=== PATIENT | female | born 1965 | race African-American/Black ===

== ENCOUNTER → 2020-07-08 07:45 | Outpatient (BNVA) | payer OTHER, SELFPAY | PROVIDERS: PCP Internal Medicine; Visit Provider Internal Medicine Gastroenterology ==

== ENCOUNTER 2020-08-04 07:02 | Day surgery (SDC) | payer OTHER, SELFPAY ==
[2020-07-30 13:30] VITALS: BMI 28.3
[2020-08-04 07:33] VITALS: BP 132/82; PULSE 76; RESP 16; TEMP 36.2; O2SAT 99
--- NOTE | 2020-08-04 08:27 | HO.ANESPROP2 ---
FORM[facility]LY [facility] Active Problems Active Problems: All Active Problems (Updated 08/04/20 @ 07:46 by Rhina Trinidad) Lower back pain (Acute) Vertigo (Acute) Tubular adenoma of colon (Acute) Constipation by delayed colonic transit (Acute) GERD (gastroesophageal reflux disease) (Acute) Past Medical History Medical History Breast cyst Constipation by delayed colonic transit GERD (gastroesophageal reflux disease) Tubular adenoma of colon Family History Family History Sister High cholesterol Mother No problems noted. Father No problems noted. Surgical History Surgical History H/O colonoscopy History of ankle surgery History of cataract extraction Social History Social History Household Members: Friend(s) Alcohol intake: never Smoking Status: Never smoker Use of substances other than those prescribed or required for medical reasons: No Advance Directives Information Provided: No Current occupational status: unemployed Meds Allergies Allergy/AdvReac Type Severity Reaction Status Date / Time diphenhydramine Allergy Intermediate LETHARGY Verified 08/04/20 07:47 [From BENADRYL] ibuprofen [IBUPROFEN] Allergy Intermediate CHEST Verified 08/04/20 07:47 PAIN, Acute stomach and itchy iopromide [From Ultravist] Allergy Mild THROAT Verified 08/04/20 07:47 TIGHTNESS FOOD COLORING Allergy Mild SORE Uncoded 07/08/20 07:45 THROAT/ITCHINESS Lactulose AdvReac Intermediate hives Uncoded 07/30/20 13:23 Active Medications: Current Medications Generic Name Dose Route Start Last Admin Trade Name Freq PRN Reason Stop Dose Admin Lactated Ringer's 1,000 mls @ 50 mls/hr 08/04/20 08:15 Lr IV .Q20H TIFFANIE Home Medications Medication Instructions Recorded Confirmed Last Taken Type ascorbic acid (vitamin C) 500 mg 500 mg PO DAILY 04/23/20 07/30/20 Unknown History capsule cholecalciferol (vitamin D3) 25 25 mcg PO DAILY 04/23/20 07/30/20 Unknown History mcg (1,000 unit) capsule nubiofdkjhqm-Rq-xflz-minerals 1 tab PO DAILY 04/23/20 07/30/20 Unknown History omega-3 fatty acids 1,000 mg 1,000 mg PO DAILY 04/23/20 07/30/20 Unknown History capsule vitamin E mixed 400 unit capsule 400 unit PO DAILY cap 04/23/20 07/30/20 Unknown History Exam Exam Date and Time: August 04, 2020 0827 Height,Weight and Vital Signs: Height 5 ft 5 in Weight 77.111 kg Last Vital Signs Temp 97.1 F 08/04/20 07:33 Pulse 76 08/04/20 07:33 Resp 16 08/04/20 07:33 BP 132/82 08/04/20 07:33 Pulse Ox 99 08/04/20 07:33 Airway Mallampati Class: II TM Dist: >3cm Denture: Upper Heart: RRR Lungs: CTA
--- NOTE | 2020-08-04 08:34 | PM.OP ---
Brief Operative Note Date of Service: 08/04/20 Pre-op diagnosis: Abdominal pain and bloating. Has been out of Omeprazole for 2 weeks. Constipation some improved with movement daily but ? incomplete Post-op diagnosis: other (SMALL HIATAL HERNIA--MILD INFLAMATION @ GE JUNCTION, DUODENITIS) Procedure: EGD WITH BX Implants: NONE Surgeon: Sarah Saenz MD Anesthesia: MAC (MD KRISHNA/MD DIANNE) Estimated blood loss (mL): 5 Pathology: other (DUODENAL, GASTRIC) Condition: stable Disposition: PACU
--- NOTE | 2020-08-04 08:35 | MHC.SHP ---
Pre-Procedural Eval Section A The patient is an INPATIENT: No Changes since office visit: Yes Patient answered all questions; No Cold of Flu in the past 2 weeks, No New Medical Problems and No Changes in Medication The History & Physical has been completed within 30 days and I have reviewed it.: Yes Section B Chief Complaint: GERD Allergies: Allergies Allergy/AdvReac Type Severity Reaction Status Date / Time diphenhydramine Allergy Intermediate LETHARGY Verified 08/04/20 07:47 [From BENADRYL] ibuprofen [IBUPROFEN] Allergy Intermediate CHEST Verified 08/04/20 07:47 PAIN, Acute stomach and itchy iopromide [From Ultravist] Allergy Mild THROAT Verified 08/04/20 07:47 TIGHTNESS FOOD COLORING Allergy Mild SORE Uncoded 07/08/20 07:45 THROAT/ITCHINESS Lactulose AdvReac Intermediate hives Uncoded 07/30/20 13:23 Plan I have reviewed the history and physical and performed a pertinent physical examination on my patient. No changes have occurred unless specified.
[2020-08-04 09:02] VITALS: BP 109/66; PULSE 93; RESP 16; TEMP 36.2; O2SAT 100
--- NOTE | 2020-08-04 09:15 | W.PM.OPN ---
Operative Note Operative Note Date of Service: 08/04/20 Narrative: Pre-op diagnosis: Abdominal pain and bloating. Has been out of Omeprazole for 2 weeks. Constipation some improved with movement daily but ? incomplete Post-op diagnosis: SMALL HIATAL HERNIA--MILD INFLAMATION @ GE JUNCTION, DUODENITIS Procedure: EGD WITH BX Implants: NONE Surgeon: Sarah Saenz MD Anesthesia: MAC (MD KRISHNA/MD DIANNE) FINDINGS: ESOPHAGUS-Normal mucosa--rim inflamation @ GEjunction-friable Small Hiatal Hernia STOMACH: MILD ERYTHEMA ANTRAL DUODENAL BULB AND DUODENUM: GRACIE GLAND HYPERPLASIA-DUODENAL VILLI VARIABLE [id number] FRIABLE Estimated blood loss (mL): 5 Pathology: DUODENAL, GASTRIC Condition: stable Disposition: PACU PLAN: Review bx results will need further BID acid blockade, currently out of meds; MIghy benefit from BID magesium dosing for constipation.
[2020-08-04 09:17] VITALS: BP 123/81; PULSE 82; RESP 16; TEMP 36.2; O2SAT 100
== END 2020-08-04 10:15 | disposition home or self-care (01) ==
PROVIDERS: PCP Internal Medicine; Visit Provider Internal Medicine Gastroenterology
PROC: 0DJ08ZZ Inspection of Upper Intestinal Tract, Via Natural or Artificial Opening Endoscopic (ICD-10-PCS; CPT 43235; principal; 2020-08-04 08:20)
DX: K21.9 Gastro-esophageal reflux disease without esophagitis (principal); K44.9 Diaphragmatic hernia without obstruction or gangrene; K29.80 Duodenitis without bleeding; K59.01 Slow transit constipation; Z79.899 Other long term (current) drug therapy; Z88.8 Allergy status to other drugs, medicaments and biological substances
CPT/HCPCS: 43239; 88305; 88342

== ENCOUNTER 2020-09-02 10:13 | Outpatient (REF) | payer OTHER, SELFPAY ==
[2020-09-02 11:22] LABS: MANUAL DIFF FLAG NO
[2020-09-02 11:35] LABS: Basophils Percent Auto 0.8 % (0-2); Eosinophils Absolute Auto 0.1 X10*3/uL (0.0-0.4); Eosinophils Percent Auto 1.3 % (0-4); Hematocrit 39.8 % (37-47); Imm Gran Abs Auto 0.01 X10*3/uL (0.00-0.03); Imm Gran Pct Auto 0.3 % (0.0-0.4); Lymphocytes Absolute Auto 1.7 X10*3/uL (1.2-4.9); Mean Corpuscular HGB Conc 32.7 g/dl (31.0-35.0); Mean Corpuscular Hemoglobin 29.9 pg (27.0-33.0); Mean Corpuscular Volume 91.5 fL (80-98); Mean Platelet Volume 9.9 fL (9.4-12.3); Monocytes Absolute Auto 0.3 X10*3/uL (0.1-1.2); Monocytes Percent Auto 7.2 % (2-11); Neutrophils Absolute Auto 1.7 X10*3/uL (2.0-8.3); Neutrophils Percent Auto 44.4 % (45-73); Platelet Count 330 X10*3/uL (160-400); Red Blood Count 4.35 X10*6/uL (4.20-5.50); Red Cell Distribution Width 12.1 % (11.0-16.0); White Blood Count 3.7 X10*3/uL (4.8-10.8)
[2020-09-02 12:03] LABS: Alanine Aminotransferase 163 U/L (0-31); Albumin Level 4.6 g/dL (3.5-5.0); Alkaline Phosphatase 98 U/L (39-117); Anion Gap 14 (12-20); Aspartate Amino Transferase 117 U/L (5-31); Bilirubin Total 0.4 mg/dL (0.0-1.0); Blood Urea Nitrogen 11 mg/dL (9-16); Calcium 10.2 mg/dL (8.4-10.2); Carbon Dioxide 24 mmol/L (22-29); Chloride 106 mmol/L (96-108); Cholesterol 219 mg/dL; Estimated Glomerular Filt Rate > 60; Glucose Fasting 129 mg/dL (60-99); HDL Cholesterol 56 mg/dL; LDL Cholesterol Calculated 140 mg/dl; Potassium 4.5 mmol/L (3.3-5.1); Sodium 139 mmol/L (135-145); Total Protein 7.7 g/dL (6.5-8.0); Triglycerides 115 mg/dL
[2020-09-05 14:17] LABS: Vitamin D 25-OH, D2 <4 ng/mL; Vitamin D 25-OH, D3 21 ng/mL; Vitamin D 25-OH, Total 21 ng/mL (30-100)
== END 2020-09-02 10:14 | disposition home or self-care (01) ==
LOC: HO.HMGCLDS 10:13
PROVIDERS: PCP Internal Medicine; Visit Provider Internal Medicine
DX: Z00.01 Encounter for general adult medical examination with abnormal findings (principal); E55.9 Vitamin D deficiency, unspecified; E78.9 Disorder of lipoprotein metabolism, unspecified
CPT/HCPCS: 36415; 80053; 80061; 82306; 85025

== ENCOUNTER 2020-09-04 10:48 | Outpatient (REF) | payer OTHER, SELFPAY ==
[2020-09-04 14:34] LABS: Estimated Average Glucose 166 mg/dL; Hemoglobin A1c % 7.4 %
== END 2020-09-04 10:49 | disposition home or self-care (01) ==
LOC: HO.HMGCLDS 10:48
PROVIDERS: PCP Internal Medicine; Visit Provider Internal Medicine
DX: R73.01 Impaired fasting glucose (principal)
CPT/HCPCS: 36415; 83036

== ENCOUNTER → 2020-09-15 14:21 | Outpatient (BNVA) | payer OTHER, SELFPAY | PROVIDERS: PCP Internal Medicine; Visit Provider Physician Assistant ==

== ENCOUNTER 2020-10-29 07:52 | Outpatient (REF) | payer OTHER, SELFPAY ==
--- NOTE | ~2020-10-29 | US_ITS ---
EXAMINATION: US ABDOMEN COMPLETE CLINICAL INFORMATION: Other specified abnormal findings of blood chemistry. COMPARISON: CT abdomen with intravenous contrast dated 02/25/2015 TECHNIQUE: Real-time imaging of the abdominal viscera. FINDINGS: PANCREAS: The pancreas appears unremarkable, without masses or ductal dilatation, with the exception of the tail which is obscured by bowel gas. ABDOMINAL AORTA: The proximal, mid, and distal segments are normal in caliber. INFERIOR VENA CAVA: Visualized portions are normal. LIVER: The cyst seen on the prior CT scan from 2014 cannot be visualized on the current study. No liver mass is detected. The liver is normal in size. The liver contour is normal. Parenchymal echogenicity is normal. There is no intrahepatic biliary duct dilatation seen. GALLBLADDER: The gallbladder is physiologically distended without evidence of stones, sludge, polyps, wall thickening or pericholecystic fluid. COMMON BILE DUCT: Normal in caliber measuring 0.5 cm in diameter. RIGHT KIDNEY: Normal. No hydronephrosis. No renal calculi or focal parenchymal lesions. The kidney measures 10.4 cm in maximum dimension. LEFT KIDNEY: Normal. No hydronephrosis. No renal calculi or focal parenchymal lesions. The kidney measures 11.6 cm in maximum dimension. SPLEEN: A small subcentimeter splenule is present. The spleen measures 8.2 cm in maximum dimension. FREE FLUID: None. US/US abdomen complete IMPRESSION: No significant abnormality is seen.
== END 2020-10-29 07:53 | disposition home or self-care (01) ==
LOC: HO.US 07:52
PROVIDERS: PCP Internal Medicine; Visit Provider Physician Assistant
DX: R79.89 Other specified abnormal findings of blood chemistry (principal)
CPT/HCPCS: 76700

== ENCOUNTER 2020-12-07 11:58 | Outpatient (REF) | payer OTHER, SELFPAY ==
[2020-12-07 13:44] LABS: Alanine Aminotransferase 48 U/L (0-31); Albumin Level 4.4 g/dL (3.5-5.0); Alkaline Phosphatase 77 U/L (39-117); Anion Gap 15 (12-20); Aspartate Amino Transferase 29 U/L (5-31); Bilirubin Total 0.4 mg/dL (0.0-1.0); Blood Urea Nitrogen 16 mg/dL (9-16); Calcium 10.6 mg/dL (8.4-10.2); Carbon Dioxide 25 mmol/L (22-29); Chloride 108 mmol/L (96-108); Estimated Glomerular Filt Rate 51; Glucose Random 99 mg/dL (60-115); Potassium 4.7 mmol/L (3.3-5.1); Sodium 143 mmol/L (135-145); Total Protein 7.6 g/dL (6.5-8.0)
[2020-12-07 13:49] LABS: Thyroid Stimulating Hormone 0.73 uIU/mL (0.32-4.0)
[2020-12-08 13:50] LABS: Anti Nuclear Antibody Screen NEGATIVE (NEGATIVE)
[2020-12-09 08:25] LABS: HBc Num1 0.19 S/CO (0.00-0.79); HBsAGNum1 0.22 S/CO (0.00-0.99); Hepatitis A Antibody IgM 0.39 Index (0-0.79); Hepatitis B Core Antibody Nonreactive (Nonreactive); Hepatitis B Surface Antigen Negative (Negative); ~HepC Num1 0.08 S/CO (0.00-0.79); ~Hepatitis A Antibody IgM Nonreactive (Nonreactive); ~Hepatitis C Antibody Nonreactive (Nonreactive)
[2020-12-09 08:41] LABS: HBS Num1 0.64 mIU/mL (0-7.99); ~Hepatitis B Surface Antibody NONREACTIVE (Nonreactive)
[2020-12-10 16:02] LABS: Mitochondrial Antibodies NEGATIVE (NEGATIVE)
[2020-12-12 01:16] LABS: Smooth Muscle Antibody <20 U (<20)
== END 2020-12-07 11:59 | disposition home or self-care (01) ==
LOC: HO.LAB 11:58
PROVIDERS: Absent Provider Internal Medicine; PCP Internal Medicine; Referring Provider Internal Medicine; Visit Provider Physician Assistant
DX: Z01.84 Encounter for antibody response examination (principal); Z11.59 Encounter for screening for other viral diseases; E11.9 Type 2 diabetes mellitus without complications; E55.9 Vitamin D deficiency, unspecified; E78.9 Disorder of lipoprotein metabolism, unspecified; R79.89 Other specified abnormal findings of blood chemistry; K59.09 Other constipation; R74.8 Abnormal levels of other serum enzymes; R74.01 Elevation of levels of liver transaminase levels; K21.9 Gastro-esophageal reflux disease without esophagitis
CPT/HCPCS: 36415; 80053; 84443; 86038; 86039; 86255; 86256; 86704; 86706; 86709; 86803; 87340; 99212

== ENCOUNTER 2020-12-08 12:37 | Outpatient (REF) | payer OTHER, SELFPAY ==
[2020-12-08 14:30] LABS: Estimated Average Glucose 126 mg/dL
[2020-12-09 11:42] LABS: LDL Cholesterol Direct 125 mg/dL (<100)
== END 2020-12-08 12:38 | disposition home or self-care (01) ==
LOC: HO.LAB 12:37
PROVIDERS: PCP Internal Medicine; Visit Provider Internal Medicine
DX: E11.9 Type 2 diabetes mellitus without complications (principal); E55.9 Vitamin D deficiency, unspecified; E78.9 Disorder of lipoprotein metabolism, unspecified; R79.89 Other specified abnormal findings of blood chemistry
CPT/HCPCS: 36415; 83036; 83721

== ENCOUNTER 2020-12-21 10:39 | Outpatient (REF) | payer OTHER, SELFPAY ==
--- NOTE | ~2020-12-21 | MM_ITS ---
EXAMINATION: MM SCREENING DIGITAL BREAST TOMOSYNTHESIS, BILATERAL CLINICAL INFORMATION: Screening. Asymptomatic. The lifetime risk of breast cancer based on the Tyrer-Cuzick Model is 6%. COMPARISON: Mammography: 12/13/2019, 01/24/2019, 01/23/2018, targeted left breast ultrasound 12/13/2019 TECHNIQUE: Digital breast tomosynthesis is performed in both the craniocaudal and mediolateral oblique views along with computer-aided detection (CAD). Synthesized 2D images are generated from the tomosynthesis. FINDINGS: The breasts are heterogeneously dense, which may obscure small masses (ACR BI-RADS breast composition Category c). Breast tissue composition borders on average fibroglandular. There is no significant mass or architectural abnormality. No developing density. No abnormal calcifications. Parenchymal pattern is similar to prior studies. The axilla and skin contours are unremarkable. MM/MM tomosynthesis screening BI IMPRESSION: No mammographic evidence of malignancy. ASSESSMENT: BI-RADS 1: Negative RECOMMENDATION: Routine annual mammography screening. This patient's information was entered into a reminder system with a target due date for their next mammogram.
== END 2020-12-21 10:40 | disposition home or self-care (01) ==
LOC: HO.MAMMO 10:39
PROVIDERS: PCP Internal Medicine; Visit Provider Obstetrics & Gynecology
DX: Z12.31 Encounter for screening mammogram for malignant neoplasm of breast (principal)
CPT/HCPCS: 77063; 77067

== ENCOUNTER 2021-02-23 11:17 | Outpatient (REF) | payer OTHER, SELFPAY ==
[2021-02-23 13:07] LABS: Phosphorus 3.4 mg/dL (2.7-4.5)
[2021-02-23 13:17] LABS: Ferritin 89 ng/mL (10-250)
[2021-02-23 13:25] LABS: Erythrocyte Sedimentation Rate 34 MM/HR (0-20)
[2021-02-23 13:40] LABS: Vitamin B12 598 pg/mL (200-900)
[2021-02-25 02:57] LABS: Calcium (PTHI) 10.1 mg/dL (8.6-10.4); PTHI 28 pg/mL (14-64)
[2021-02-25 13:51] LABS: Alpha 1 Anti-trypsin 132 mg/dL (83-199)
[2021-02-25 15:32] LABS: Calcium, Ionized 5.2 mg/dL (4.8-5.6)
[2021-02-25 23:06] LABS: Immunoglobulin G Subclass 1 608 mg/dL (382-929); Immunoglobulin G Subclass 2 438 mg/dL (241-700); Immunoglobulin G Subclass 3 118 mg/dL (22-178); Immunoglobulin G Subclass 4 30.8 mg/dL (4-86); Immunoglobulin G Total 1289 mg/dL (600-1640)
[2021-02-27 08:26] LABS: Gliadin Deamidated IgA Ab <1.0 U/mL; Gliadin Deamidated IgG Ab <1.0 U/mL; Transglutaminase Ab IgG <1.0 U/mL; Transglutaminase IgA <1.0 U/mL
[2021-02-27 09:42] LABS: Angiotensin Converting Enzyme 26 U/L (9-67)
[2021-02-28 09:26] LABS: Soluble Liver Ag Autoantibody <20.1 U (0.0-20.0)
== END 2021-02-23 11:18 | disposition home or self-care (01) ==
LOC: HO.LAB 11:17
PROVIDERS: PCP Internal Medicine; Visit Provider Internal Medicine Gastroenterology
DX: G89.29 Other chronic pain (principal); R10.33 Periumbilical pain; R79.89 Other specified abnormal findings of blood chemistry; K21.9 Gastro-esophageal reflux disease without esophagitis
CPT/HCPCS: 36415; 82103; 82164; 82330; 82550; 82607; 82728; 82746; 82784; 83516; 83520; 83970; 84100; 85652

== ENCOUNTER 2021-06-08 11:51 | Outpatient (REF) | payer OTHER, SELFPAY ==
[2021-06-08 14:02] LABS: MANUAL DIFF FLAG NO
[2021-06-08 14:10] LABS: Basophils Percent Auto 0.8 % (0-2); Hematocrit 40.4 % (37.0-47.0); Hemoglobin 12.9 g/dl (12.0-16.0); Lymphocytes Absolute Auto 1.8 X10*3/uL (1.2-4.9); Lymphocytes Percent Auto 44.2 % (20-40); Mean Corpuscular HGB Conc 31.9 g/dl (31.0-35.0); Mean Corpuscular Hemoglobin 29.9 pg (27.0-33.0); Mean Corpuscular Volume 93.5 fL (80.0-98.0); Mean Platelet Volume 10.2 fL (9.4-12.3); Monocytes Absolute Auto 0.2 X10*3/uL (0.1-1.2); Platelet Count 318 X10*3/uL (160-400); Red Blood Count 4.32 X10*6/uL (4.20-5.50); Red Cell Distribution Width 11.9 % (11.0-16.0)
[2021-06-08 14:17] LABS: Estimated Average Glucose 128 mg/dL; Hemoglobin A1c % 6.1 %
[2021-06-08 14:25] LABS: Alanine Aminotransferase 33 U/L (0-31); Albumin Level 4.4 g/dL (3.5-5.0); Alkaline Phosphatase 67 U/L (39-117); Anion Gap 12 (12-20); Aspartate Amino Transferase 28 U/L (5-31); Bilirubin Total 0.5 mg/dL (0.0-1.0); Blood Urea Nitrogen 13 mg/dL (9-16); Calcium 10.5 mg/dL (8.4-10.2); Carbon Dioxide 29 mmol/L (22-29); Chloride 105 mmol/L (96-108); Cholesterol 215 mg/dL; Estimated Glomerular Filt Rate 59; Glucose Fasting 94 mg/dL (60-99); HDL Cholesterol 62 mg/dL; LDL Cholesterol Calculated 141 mg/dl; Potassium 4.6 mmol/L (3.3-5.1); Sodium 141 mmol/L (135-145); Total Protein 7.6 g/dL (6.5-8.0); Triglycerides 60 mg/dL
[2021-06-08 14:47] LABS: Ferritin 84 ng/mL (10-250); TSH reflex Free T4 1.01 uIU/mL (0.32-4.0)
[2021-06-08 15:11] LABS: Creatinine Urine 154.03 mg/dL; Microalbum/Creatinine Ratio Ur 5.8 ug/mg cr
[2021-06-08 15:17] LABS: Vitamin B12 721 pg/mL (200-900)
[2021-06-12 12:11] LABS: Vitamin D 25-OH, D2 <4 ng/mL; Vitamin D 25-OH, D3 35 ng/mL; Vitamin D 25-OH, Total 35 ng/mL (30-100)
== END 2021-06-08 11:52 | disposition home or self-care (01) ==
LOC: HO.HMGCLDS 11:51
PROVIDERS: Visit Provider Internal Medicine
DX: E11.9 Type 2 diabetes mellitus without complications (principal); E78.9 Disorder of lipoprotein metabolism, unspecified; G43.909 Migraine, unspecified, not intractable, without status migrainosus; R20.2 Paresthesia of skin
CPT/HCPCS: 36415; 80053; 80061; 82043; 82306; 82607; 82728; 83036; 84443; 85025

== ENCOUNTER 2021-09-03 13:13 | Outpatient (REF) | payer OTHER, SELFPAY ==
[2021-09-03 14:45] LABS: Calcium 10.7 mg/dL (8.4-10.2); Estimated Average Glucose 123 mg/dL; Hemoglobin A1c % 5.9 %
[2021-09-10 17:42] LABS: Parathyroid Hormone Related Pr 12 pg/mL (11-20)
== END 2021-09-03 13:14 | disposition home or self-care (01) ==
LOC: HO.HMGCLDS 13:13
PROVIDERS: PCP Internal Medicine; Visit Provider Internal Medicine
DX: E83.52 Hypercalcemia (principal); E11.9 Type 2 diabetes mellitus without complications
CPT/HCPCS: 36415; 82310; 83036; 83519

== ENCOUNTER → 2021-09-07 09:36 | Outpatient (BNVA) | payer OTHER, SELFPAY | PROVIDERS: PCP Internal Medicine; Visit Provider Surgery Vascular Surgery | DX: I83.12 Varicose veins of left lower extremity with inflammation (principal) | CPT/HCPCS: 99202 ==

== ENCOUNTER 2021-09-30 09:43 | Outpatient (REF) | payer OTHER, SELFPAY ==
--- NOTE | 2021-09-30 09:45 | EMG_ITS ---
Left median and ulnar motor and sensory studies were performed. Left radial sensory studies were performed and paraspinal muscles were tested. IMPRESSION: 1. 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 2. Mild left ulnar neuropathy across cubital tunnel. MD ELIANA Terry/IVANA / [phone]
== END 2021-09-30 09:44 | disposition home or self-care (01) ==
LOC: HO.NEURO 09:43
PROVIDERS: PCP Internal Medicine; Visit Provider Internal Medicine
DX: R20.2 Paresthesia of skin (principal)
CPT/HCPCS: 95886; 95909

== ENCOUNTER 2021-11-18 07:48 | Outpatient (REF) | payer OTHER, SELFPAY ==
--- NOTE | ~2021-11-18 | US_ITS ---
EXAMINATION: US LOWER EXTREMITY VENOUS (REFLUX EXAM), BILATERAL CLINICAL INDICATION: Chronic venous insufficiency with left lower extremity varicose veins and pain COMPARISON: None. TECHNIQUE: Color flow triplex imaging and compression Doppler was performed to evaluate both the deep and the superficial systems bilaterally. To evaluate the superficial system, the examination was performed in the upright position. Color-flow Doppler ultrasound and compression ultrasound were utilized. In addition, maneuvers were utilized to demonstrate reflux. FINDINGS: 1. DEEP VENOUS ULTRASOUND OF THE RIGHT LOWER EXTREMITY: Common Femoral Vein: Compressible, normal respiratory variation and augmented flow. Femoral Vein: Compressible, normal color flow and augmentation. Popliteal Vein: Compressible, normal augmentation. Deep Reflux: There is no evidence of reflux in the deep system in either the common femoral vein or the popliteal vein. There is no evidence of a Caraballo's cyst. 2. SUPERFICIAL ULTRASOUND WITH DOPPLER OF RIGHT LOWER EXTREMITY: GREAT SAPHENOUS VEIN: Saphenofemoral Junction: 0.6 cm; Reflux: 0 ms Proximal Thigh: 0.2 cm; Reflux: 0 ms Mid Thigh: 0.1 cm; Reflux: 0 ms Above Knee: 0.2 cm; Reflux: 0 ms At Knee: 0.2 cm; Reflux: 0 ms Below Knee: 0.2 cm; Reflux: 0 ms Mid Calf: 0.1 cm; Reflux: 0 ms Ankle: 0.1 cm; Reflux: 0 ms DUPLICATED MEDIAL GREAT SAPHENOUS VEIN: Diameter: None Imaged Reflux: NA DUPLICATED LATERAL GREAT SAPHENOUS VEIN: Diameter: 0.2 Reflux: None SMALL SAPHENOUS VEIN: Proximal: 0.2 cm; Reflux: 0 ms Distal: 0.1 cm; Reflux: 0 ms VEIN OF GIACOMINI: None Imaged. PERFORATORS: Location: Mid thigh Size: 0.2 cm Reflux: None VARICOSITIES: Location: None Imaged Size: NA Reflux: NA 3. DEEP VENOUS ULTRASOUND OF THE LEFT LOWER EXTREMITY: Common Femoral Vein: Compressible, normal respiratory variation and augmented flow. Femoral Vein: Compressible, normal color flow and augmentation. Popliteal Vein: Compressible, normal augmentation. Deep Reflux: There is no evidence of reflux in the deep system in either the common femoral vein or the popliteal vein. There is no evidence of a Caraballo's cyst. 4. SUPERFICIAL ULTRASOUND WITH DOPPLER OF LEFT LOWER EXTREMITY: GREAT SAPHENOUS VEIN: Saphenofemoral Junction: 0.5 cm; Reflux: 0 ms Proximal Thigh: 0.3 cm; Reflux: 0 ms Mid Thigh: 0.3 cm; Reflux: 3372 ms Above Knee: 0.2 cm; Reflux: 3036 ms At Knee: 0.1 cm; Reflux: 0 ms Below Knee: 0.5 cm; Reflux: 2820 ms Mid Calf: 0.2 cm; Reflux: 3236 ms Ankle: 0.3 cm; Reflux: 0 ms DUPLICATED MEDIAL GREAT SAPHENOUS VEIN: Diameter: None Imaged Reflux: NA DUPLICATED LATERAL GREAT SAPHENOUS VEIN: Diameter: 0.4 cm Reflux: None SMALL SAPHENOUS VEIN: Proximal: 0.3 cm; Reflux: 0 ms Distal: 0.2 cm; Reflux: 0 ms VEIN OF GIACOMINI: None Imaged. PERFORATORS: Location: None Imaged Size: NA Reflux: NA VARICOSITIES: Location: Proximal and distal thigh Size: 0.3 to 0.4 cm Reflux: Greater than 3000 ms US/US venous duplex LE BI IMPRESSION: Right: No significant venous insufficiency in the saphenous veins Left: Severe reflux in the left great saphenous vein with varicosities as seen in the thigh with severe reflux as described above. No significant reflux in the small saphenous vein
== END 2021-11-18 07:49 | disposition home or self-care (01) ==
LOC: HO.US 07:48
PROVIDERS: Visit Provider Surgery Vascular Surgery
DX: I83.12 Varicose veins of left lower extremity with inflammation (principal)
CPT/HCPCS: 93970

== ENCOUNTER → 2021-11-25 11:04 | Outpatient (BNVA) | payer OTHER, SELFPAY | PROVIDERS: PCP Internal Medicine; Visit Provider Surgery Vascular Surgery | DX: I83.12 Varicose veins of left lower extremity with inflammation (principal) | CPT/HCPCS: 99212 ==

== ENCOUNTER → 2021-12-24 08:56 | Outpatient (BNVA) | payer OTHER, SELFPAY | PROVIDERS: PCP Internal Medicine; Visit Provider Surgery Vascular Surgery | DX: I83.12 Varicose veins of left lower extremity with inflammation (principal) | CPT/HCPCS: 36475 ==

== ENCOUNTER 2021-12-27 09:35 | Outpatient (REF) | payer OTHER, SELFPAY ==
--- NOTE | ~2021-12-27 | US_ITS ---
EXAMINATION: TRIPLEX SCANNING OF left LOWER EXTREMITY; SUPERFICIAL ULTRASOUND WITH DOPPLER OF leftLOWER EXTREMITY CLINICAL INFORMATION: Status post RF ablation of the left great saphenous vein. COMPARISON: Ultrasound from 11/18/2021. TECHNIQUE: Color flow triplex imaging and compression Doppler were performed as well as superficial ultrasound with Doppler. FINDINGS: TRIPLEX SCANNING OF LEFT LOWER EXTREMITY: Respiratory variation, normal compression and augmented flow are noted throughout the lower extremity. The visualized common femoral vein, femoral vein, profunda femoral vein, popliteal vein and the calf veins show no evidence of deep venous thrombosis. There is no evidence of Caraballo's cyst. SUPERFICIAL ULTRASOUND WITH DOPPLER OF LEFT LOWER EXTREMITY: The left great saphenous vein is occluded from the access site to 1.2 cm before the sapheno-femoral junction. There is no extension of thrombus into the deep system. US/US venous duplex LE IMPRESSION: 1. Normal triplex scan of the right without evidence of deep venous thrombosis. 2. Excellent appearance status post ablation of the left great saphenous vein.
--- NOTE | ~2021-12-27 | MM_ITS ---
EXAMINATION: MM SCREENING DIGITAL BREAST TOMOSYNTHESIS, BILATERAL CLINICAL INFORMATION: Screening. Asymptomatic. The lifetime risk of breast cancer based on the Tyrer-Cuzick Model is 6%. COMPARISON: Mammography: 12/21/2020, 12/13/2019, 01/24/2019 TECHNIQUE: Digital breast tomosynthesis is performed in both the craniocaudal and mediolateral oblique views along with computer-aided detection (CAD). Synthesized 2D images are generated from the tomosynthesis. FINDINGS: There are scattered areas of fibroglandular density (ACR BI-RADS breast composition Category b). There are no significant masses, abnormal calcifications, or other abnormalities. Parenchymal pattern is similar to prior studies. There is no developing density or architectural abnormality. The axilla and skin contours are unremarkable. No significant changes. MM/MM tomosynthesis screening BI IMPRESSION: No mammographic evidence of malignancy. ASSESSMENT: BI-RADS 1: Negative RECOMMENDATION: Routine annual mammography screening. This patient's information was entered into a reminder system with a target due date for their next mammogram.
== END 2021-12-27 09:36 | disposition home or self-care (01) ==
LOC: HO.US 09:35
PROVIDERS: Visit Provider Surgery Vascular Surgery
DX: M79.605 Pain in left leg (principal); Z12.31 Encounter for screening mammogram for malignant neoplasm of breast
CPT/HCPCS: 77063; 77067; 93971

== ENCOUNTER 2021-12-27 10:13 | Outpatient (REF) | payer OTHER, SELFPAY | END 2021-12-27 10:14 | disposition home or self-care (01) | LOC: HO.MAMMO 10:13 | PROVIDERS: PCP Internal Medicine; Visit Provider Internal Medicine | DX: Z13.89 Encounter for screening for other disorder (principal) ==

== ENCOUNTER → 2022-01-06 15:22 | Outpatient (BNVA) | payer OTHER, SELFPAY | PROVIDERS: PCP Internal Medicine; Visit Provider Surgery Vascular Surgery | DX: I83.12 Varicose veins of left lower extremity with inflammation (principal) | CPT/HCPCS: 99212 ==

== ENCOUNTER → 2022-08-02 09:15 | Outpatient (BNVA) | payer OTHER, SELFPAY | PROVIDERS: PCP Internal Medicine; Visit Provider Surgery Vascular Surgery | DX: M79.605 Pain in left leg (principal) | CPT/HCPCS: 99212 ==

== ENCOUNTER 2022-09-21 06:51 | Outpatient (REF) | payer OTHER, SELFPAY ==
[2022-09-21 11:22] LABS: MANUAL DIFF FLAG NO
[2022-09-21 11:36] LABS: Eosinophils Absolute Auto 0.1 X10*3/uL (0.0-0.4); Eosinophils Percent Auto 3.6 % (0-4); Hemoglobin 12.7 g/dl (12.0-16.0); Lymphocytes Absolute Auto 1.4 X10*3/uL (1.2-4.9); Mean Corpuscular HGB Conc 32.6 g/dl (31.0-35.0); Mean Corpuscular Hemoglobin 30.5 pg (27.0-33.0); Mean Corpuscular Volume 93.8 fL (80.0-98.0); Mean Platelet Volume 10.2 fL (9.4-12.3); Monocytes Absolute Auto 0.2 X10*3/uL (0.1-1.2); Monocytes Percent Auto 6.8 % (2-11); Neutrophils Absolute Auto 1.4 x10*3/uL (2.0-8.3); Neutrophils Percent Auto 44.6 % (45-73); Platelet Count 300 X10*3/uL (160-400); Red Blood Count 4.16 X10*6/uL (4.20-5.50); Red Cell Distribution Width 11.9 % (11.0-16.0); White Blood Count 3.1 X10*3/uL (4.8-10.8)
[2022-09-21 11:52] LABS: Estimated Average Glucose 114 mg/dL; Hemoglobin A1c % 5.6 %
[2022-09-21 11:56] LABS: Alanine Aminotransferase 27 U/L (0-31); Albumin Level 4.2 g/dL (3.5-5.0); Alkaline Phosphatase 58 U/L (39-117); Anion Gap 10 (12-20); Aspartate Amino Transferase 21 U/L (5-31); Bilirubin Total 0.5 mg/dL (0.0-1.0); Blood Urea Nitrogen 16 mg/dL (9-16); Calcium 9.9 mg/dL (8.4-10.2); Carbon Dioxide 26 mmol/L (22-29); Chloride 109 mmol/L (96-108); Cholesterol 200 mg/dL; Estimated Glomerular Filt Rate > 60; Glucose Fasting 100 mg/dL (60-99); HDL Cholesterol 61 mg/dL; LDL Cholesterol Calculated 130 mg/dl; Sodium 141 mmol/L (135-145); Total Protein 7.5 g/dL (6.5-8.0); Triglycerides 48 mg/dL
== END 2022-09-21 06:52 | disposition home or self-care (01) ==
LOC: HO.HMGCLDS 06:51
PROVIDERS: PCP Internal Medicine; Visit Provider Internal Medicine
DX: E11.9 Type 2 diabetes mellitus without complications (principal); E55.9 Vitamin D deficiency, unspecified; E78.9 Disorder of lipoprotein metabolism, unspecified; G43.909 Migraine, unspecified, not intractable, without status migrainosus
CPT/HCPCS: 36415; 80053; 80061; 82043; 83036; 85025

== ENCOUNTER 2023-05-31 13:58 | Outpatient (AMB) | payer OTHER, SELFPAY ==
--- NOTE | 2023-05-31 14:00 | AM.OFFWIN_ITS ---
Intake Vital Signs 05/31/23 14:01 Height 5 ft 5 in Weight 145 lb BMI 24.1 BP 130/72 Blood Pressure Location Lt brachial Position Sitting Pulse 80 Pulse Source Pulse Oximeter Temp 97.6 F Temp Source Temporal Artery Scan Pulse Oximetry (%) 96 Oxygen Delivery Method Room Air Intake Visit Reasons: EP LFT head pain above ear Intake Note: pt is here today for head pain above ear started 2 weeks ago Patient Tobacco Use Status: Never used Tobacco Allergies diphenhydramine [From BENADRYL] Allergy (Intermediate, Verified 05/31/23 14:04) LETHARGY ibuprofen [IBUPROFEN] Allergy (Intermediate, Verified 05/31/23 14:04) CHEST PAIN, Acute stomach and itchy iopromide [From Ultravist] Allergy (Mild, Verified 05/31/23 14:04) THROAT TIGHTNESS FOOD COLORING Allergy (Mild, Uncoded 08/02/22 10:10) SORE THROAT/ITCHINESS Lactulose Adverse Reaction (Intermediate, Uncoded 08/02/22 10:10) hives Do you need a note to return to daycare/school/sports/work: No HPI HPI Comments History of Present Illness Details Patient is a 58yo F who presents with L sided headache above ear. Ongoing x 2 weeks but maybe even longer but is now more consistent Pressure and burning headache Above L ear She states hx of migraines but feels different from baseline migraines usually baseline headaches can start on one side and spread to top of head. She said this one has only been L sided. States pain around L ear as well Intermittent dizziness that lasts a few seconds. Denies room spinning. No sy ncope, HT or LOC Headache is intermittent Ranges from 3/10-10/10. 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 No ear drainage She said minimal congestion. No Cough fever or chills She has not taken any medicine for headache; usually tries quiet dark room Pain usually lasts approx 1 hour or longer. She denies noticing rashes PFSH Medical History Breast cyst Constipation by delayed colonic transit GERD (gastroesophageal reflux disease) Tubular adenoma of colon Surgical History H/O colonoscopy History of ankle surgery History of cataract extraction Family History Sister High cholesterol Mother No problems noted. Father No problems noted. Social History Household Members: Children Housing: House Alcohol intake: never Patient Tobacco Use Status: Never used Tobacco e-Cigarette/Vaping Use: Never Used service: No Current occupational status: employed Cognitive needs: No Hearing needs: No Vision needs: No Review of Systems Const Denies body aches, Denies chills, Denies fatigue, Denies fever(s), Denies frequent falls and Reports headache(s) Eyes Denies blurry vision and Denies change in vision ENT Reports dizziness, Reports otalgia, Reports headache(s), Denies sinus pressure and Denies sore throat Card Denies chest pain, Denies syncope and Denies dyspnea Resp Denies cough and Denies dyspnea GI Denies abdominal pain and Denies vomiting Skin/Breast Denies rash Neuro Denies confusion, Reports dizziness, Denies syncope, Denies frequent falls, Reports headache(s) and Denies lack of coordination Psych Denies confusion Endo Denies fatigue Physical Exam Vital Signs: Last Vital Signs Temp 97.6 F 05/31/23 14:01 Pulse 80 05/31/23 14:01 BP 130/72 05/31/23 14:01 Pulse Ox 96 05/31/23 14:01 Oxygen Delivery Method Room Air 05/31/23 14:01 BMI result Body Mass Index 24.1 General: Non-toxic, NAD. Speaking full sentences. Skin: Warm dry throughout. No rashes, vesicles or lesions to L side of scalp or periauricular region. No edema to L temporal region. No periorbital edema. Eye: EOMI, PERRL HENT: Airway patent. Uvula midline. No pharyngeal erythema or edema. No UTILIZATION REVIEW COORDINATOR. Bilateral canals clear. TM non-erythematous, non-bulging. No TM perforation or hemotympanum noted. No mastoid tenderness bilaterally. Respiratory: CTA bilaterally. No wheezes, rales or rhonchi Cardiac: RRR. No murmur MSK: Full ROM extremities. Neurology: A/O x 3. CN 2-12 grossly intact. Finger to nose tracing equal. Negative pronator drift. No aphasia or facial droop. Gait without abnormality Psych: Good mood and affect Const General: No confusion Orientation/consciousness: No confusion Neuro General: No confusion Assessment & Plan Assessment & Plan (1) Headache: Code(s): R51.9 - Headache, unspecified Qualifiers: Headache chronicity pattern: acute headache Headache type: unspecified Intractability: intractable Qualified Code(s): R51.9 - Headache, unspecified Plan: Patient seen and evaluated. No neurological deficit on examination No sign of shingles on exam or OM/OE on exam No mastoid tenderness or edema/erythema Discussed most likely migraine hx and she needs to have good sleep hygeine, avoid electronics at least 30 minutes before bed, avoid migraine triggers, hydrate Discussed if headache is persistent she may need ED for IV medications for migraine . Will order cbc, bmp, esr to r/o temporal arteritis due to location of symptoms and she states it sometimes radiates to R eye without visual changes but we discussed it is usually males 70yo or older with visual disturbances Patient gave verbal understanding and had no additional questions or concerns at time of discharge All questions answered Orders: Orders Complete Blood Count Auto Diff Today R51.9 - Headache, unspecified Erythrocyte Sedimentation Rate Today R51.9 - Headache, unspecified Basic Metabolic Panel Today R51.9 - Headache, unspecified Coding Level of Care Code Est Pt Level 3 (41203) Diagnoses Acute intractable headache, unspecified headache type R51.9 Headache chronicity pattern: acute headache Headache type: unspecified Intractability: intractable
[2023-05-31 14:01] VITALS: BP 130/72; PULSE 80; TEMP 36.4; O2SAT 96; BMI 24.1
== END 2023-05-31 15:48 | disposition home or self-care (01) ==
PROVIDERS: PCP Internal Medicine; Visit Provider Physician Assistant
DX: R51.9 Headache, unspecified (principal)
CPT/HCPCS: 99213

== ENCOUNTER 2023-06-01 08:28 | Outpatient (REF) | payer OTHER, SELFPAY ==
[2023-06-01 11:23] LABS: MANUAL DIFF FLAG NO
[2023-06-01 11:34] LABS: Basophils Percent Auto 0.9 % (0-2); Eosinophils Absolute Auto 0.1 X10*3/uL (0.0-0.4); Eosinophils Percent Auto 2.5 % (0-4); Hematocrit 40.9 % (37.0-47.0); Hemoglobin 13.4 g/dl (12.0-16.0); Imm Gran Abs Auto 0.01 X10*3/uL (0.00-0.03); Imm Gran Pct Auto 0.3 % (0.0-0.4); Lymphocytes Absolute Auto 1.4 X10*3/uL (1.2-4.9); Lymphocytes Percent Auto 44.1 % (20-40); Mean Corpuscular HGB Conc 32.8 g/dl (31.0-35.0); Mean Corpuscular Hemoglobin 30.6 pg (27.0-33.0); Mean Corpuscular Volume 93.4 fL (80.0-98.0); Monocytes Absolute Auto 0.2 X10*3/uL (0.1-1.2); Monocytes Percent Auto 6.2 % (2-11); Neutrophils Absolute Auto 1.5 x10*3/uL (2.0-8.3); Platelet Count 318 X10*3/uL (160-400); Red Blood Count 4.38 X10*6/uL (4.20-5.50); White Blood Count 3.2 X10*3/uL (4.8-10.8)
[2023-06-01 11:51] LABS: Anion Gap 11 (12-20); Blood Urea Nitrogen 14 mg/dL (9-16); Calcium 10.1 mg/dL (8.4-10.2); Carbon Dioxide 27 mmol/L (22-29); Chloride 106 mmol/L (96-108); Estimated Glomerular Filt Rate > 60; Glucose Random 111 mg/dL (60-115); Potassium 4.2 mmol/L (3.3-5.1); Sodium 140 mmol/L (135-145)
[2023-06-01 12:29] LABS: Erythrocyte Sedimentation Rate 28 MM/HR (0-20)
== END 2023-06-01 08:29 | disposition home or self-care (01) ==
LOC: HO.HMGCLDS 08:28
PROVIDERS: PCP Internal Medicine; Visit Provider Physician Assistant
DX: R51.9 Headache, unspecified (principal)
CPT/HCPCS: 36415; 80048; 85025; 85652

== ENCOUNTER 2023-06-28 11:29 | Outpatient (AMB) | payer OTHER, SELFPAY ==
[2023-06-28 11:37] VITALS: BP 132/76; PULSE 76; O2SAT 97; BMI 24.4
--- NOTE | 2023-06-28 11:37 | MHC.PC.OV ---
Vital Signs 06/28/23 11:37 Height 5 ft 5 in Weight 146 lb 6 oz BMI 24.4 BP 132/76 Blood Pressure Location Lt brachial Position Sitting Pulse 76 Pulse Source Pulse Oximeter Pulse Oximetry (%) 97 Oxygen Delivery Method Room Air Intake Visit Reasons: Overdue appt/ Follow up [place]~ Allergies diphenhydramine [From BENADRYL] Allergy (Intermediate, Verified 06/28/23 11:40) LETHARGY ibuprofen [IBUPROFEN] Allergy (Intermediate, Verified 06/28/23 11:40) CHEST PAIN, Acute stomach and itchy iopromide [From Ultravist] Allergy (Mild, Verified 06/28/23 11:40) THROAT TIGHTNESS FOOD COLORING Allergy (Mild, Uncoded 08/02/22 10:10) SORE THROAT/ITCHINESS Lactulose Adverse Reaction (Intermediate, Uncoded 08/02/22 10:10) hives Medication List - Last Reconciled 06/28/23 by Isaiah Rosales MD blood sugar diagnostic (FreeStyle Lite Strips) patient to check fasting glucose once daily blood-glucose meter (FreeStyle Lite Meter kit) patient to check fasting glucose once daily cholecalciferol (vitamin D3) 25 mcg PO DAILY glipizide ER 2.5 mg PO DAILY 90 days lancets (FreeStyle Lancets) patient to check fasting glucose once daily [left hand wrist splint As directed] Tobacco use date assessed: 06/28/23 Dental Screening Dental Screen Date: 06/28/23 Did you have a dental visit in the last 12 months?: Yes Did you have a dental problem in the last 6 months where you did not have access to dental care?: No Was dental information given to patient?: Patient has dentist HPI [place]due appt/ Follow up [place]~ HPI Details Patient is a 58-year-old female came in today for her regular follow-up appointment. Diabetes mellitus: Patient is on small dose of glipizide 2.5 mg and diet-controlled, hemoglobin A1c has been stable. Lipid disorder: Controlled with the diet controlled we will repeat labs again before her physical examination in summer. GERD is stable patient is on omeprazole 40 mg through Gastroenterology. Carpal tunnel syndrome: Left hand, she is doing well with splint symptoms have resolved Migraine headaches: Headaches are much better she is not getting them that frequently Varicosities lower extremity stable Due for labs [facility] Medical History Breast cyst Tubular adenoma of colon Constipation by delayed colonic transit GERD (gastroesophageal reflux disease) Surgical History History of ankle surgery History of cataract extraction H/O colonoscopy Family History Sister High cholesterol Mother No problems noted. Father No problems noted. Social History Household Members: Children Housing: House Alcohol intake: never Patient Tobacco Use Status: Never used Tobacco e-Cigarette/Vaping Use: Never Used service: No Current occupational status: employed Cognitive needs: No Hearing needs: No Vision needs: No Questionnaire Thrive Questionnaire Date Thrive assessed: 06/08/21 AUDIT C Alcohol Use Questionnaire (AUDIT-C) 1. How often do you have a drink containing alcohol?: Never 3. How often do you have six or more drinks on one occasion?: Never Total Score: 0 Score Reviewed/Action Taken: Yes BIANCA-7 AMB Questionnaire BIANCA-7 Date BIANCA - 7 assessed: 06/08/21 Source: Developed by Drs. Freddy Fisher, Paola Tariq, Colton Ordoñez and colleagues, with an educational esthela from [employer]. Review of Systems Const Denies chills and Denies fever(s) ENT Denies epistaxis and Denies nasal discharge Card Denies chest pain Resp Denies chest congestion, Denies cough and Denies hemoptysis GI Denies diarrhea and Denies nausea Skin/Breast Denies rash Neuro Reports no additional complaints Psych Reports no additional complaints Endo Reports no additional complaints Physical exam (Primary Care) Vital Signs: Last Vital Signs Pulse 76 06/28/23 11:37 BP 132/76 06/28/23 11:37 Pulse Ox 97 06/28/23 11:37 Oxygen Delivery Method Room Air 06/28/23 11:37 BMI result Body Mass Index 24.4 Tobacco/Smoking Status: Tobacco use Status Tobacco use date assessed 06/28/23 06/28/23 11:41 Patient Tobacco Use Status Never used Tobacco 06/28/23 11:41 e-Cigarette/Vaping Use Never Used 06/28/23 11:41 Thrive Assessment: Date of Thrive Assessment Date Thrive assessed 06/08/21 06/28/23 11:41 Const General: cooperative, comfortable and no acute distress Orientation/consciousness: patient oriented x3 HENMT Head: Yes normocephalic Eyes General: appearance normal, both eyes and all related structures Neck Neck: Yes supple Resp Effort & Inspection: normal respiratory effort, no cough and no stridor Cardio Rhythm: regular rhythm Heart sounds: S1 normal heart sound present and S2 normal heart sound present Skin General skin exam: turgor normal Neuro General: patient oriented x3, tone normal and moves all extremities Extrem Right lower extremity: no edema Left lower extremity: no edema Assessment and Plan Assessment & Plan (1) Diabetes mellitus: Code(s): E11.9 - Type 2 diabetes mellitus without complications Qualifiers: Diabetes mellitus complication status: with other specified complication Diabetes mellitus usp insulin use: without usp use Diabetes mellitus type: type 2 Qualified Code(s): E11.69 - Type 2 diabetes mellitus with other specified complication (2) Migraine headache: Code(s): G43.909 - Migraine, unspecified, not intractable, without status migrainosus Qualifiers: Intractability: intractable Migraine type: other Status migrainosus presence: without status migrainosus Qualified Code(s): G43.819 - Other migraine, intractable, without status migrainosus (3) Lipid disorder: Code(s): E78.9 - Disorder of lipoprotein metabolism, unspecified (4) Constipation by delayed colonic transit: Code(s): K59.01 - Slow transit constipation (5) GERD (gastroesophageal reflux disease): Code(s): K21.9 - Gastro-esophageal reflux disease without esophagitis Qualifiers: Esophagitis presence: without esophagitis Qualified Code(s): K21.9 - Gastro-esophageal reflux disease without esophagitis (6) LFT elevation: Comment: She is not taking herbs or etoh- Will do labs to include hepatitis panel Reviewed ultrasound Code(s): R79.89 - Other specified abnormal findings of blood chemistry (7) Varicose veins of left lower extremity: Code(s): I83.92 - Asymptomatic varicose veins of left lower extremity Qualifiers: Varicose vein complication: unspecified Qualified Code(s): I83.92 - Asymptomatic varicose veins of left lower extremity Plan Patient is a 58-year-old female came in today for her regular follow-up appointment. Last visit was September of last year after that patient missed her follow-up appointment In May she was seen in our walk-in clinic secondary to headache left side, which has resolved Diabetes mellitus: Patient is on small dose of glipizide 2.5 mg and diet-controlled, hemoglobin A1c has been stable. Lipid disorder: Controlled with the diet controlled we will repeat labs again before her physical examination in summer. GERD is stable patient is on omeprazole 40 mg through Gastroenterology. Carpal tunnel syndrome: Left hand, she is doing well with splint symptoms have resolved Migraine headaches: Headaches are much better she is not getting them that frequently Varicosities lower extremity stable Due for labs Orders: Orders Hemoglobin A1c Today E11.9 - Type 2 diabetes mellitus without complications, E78.9 - Disorder of lipoprotein metabolism, unspecified, G43.909 - Migraine, unspecified, not intractable, without status migrainosus, I83.92 - Asymptomatic varicose veins of left lower extremity, K21.9 - Gastro-esophageal reflux disease without esophagitis, K59.01 - Slow transit constipation, R79.89 - Other specified abnormal findings of blood chemistry Comprehensive [place]. Panel Fast Today E11.9 - Type 2 diabetes mellitus without complications, E78.9 - Disorder of lipoprotein metabolism, unspecified, G43.909 - Migraine, unspecified, not intractable, without status migrainosus, I83.92 - Asymptomatic varicose veins of left lower extremity, K21.9 - Gastro-esophageal reflux disease without esophagitis, K59.01 - Slow transit constipation, R79.89 - Other specified abnormal findings of blood chemistry Lipid Panel Today E11.9 - Type 2 diabetes mellitus without complications, E78.9 - Disorder of lipoprotein metabolism, unspecified, G43.909 - Migraine, unspecified, not intractable, without status migrainosus, I83.92 - Asymptomatic varicose veins of left lower extremity, K21.9 - Gastro-esophageal reflux disease without esophagitis, K59.01 - Slow transit constipation, R79.89 - Other specified abnormal findings of blood chemistry Erythrocyte Sedimentation Rate Today E11.9 - Type 2 diabetes mellitus without complications, E78.9 - Disorder of lipoprotein metabolism, unspecified, G43.909 - Migraine, unspecified, not intractable, without status migrainosus, I83.92 - Asymptomatic varicose veins of left lower extremity, R79.89 - Other specified abnormal findings of blood chemistry Microalbumin, Random (w Creat) Today E11.9 - Type 2 diabetes mellitus without complications, E78.9 - Disorder of lipoprotein metabolism, unspecified, G43.909 - Migraine, unspecified, not intractable, without status migrainosus, I83.92 - Asymptomatic varicose veins of left lower extremity, K21.9 - Gastro-esophageal reflux disease without esophagitis, K59.01 - Slow transit constipation, R79.89 - Other specified abnormal findings of blood chemistry Complete Blood Count Auto Diff Today E11.9 - Type 2 diabetes mellitus without complications, E78.9 - Disorder of lipoprotein metabolism, unspecified, G43.909 - Migraine, unspecified, not intractable, without status migrainosus, I83.92 - Asymptomatic varicose veins of left lower extremity, K21.9 - Gastro-esophageal reflux disease without esophagitis, K59.01 - Slow transit constipation, R79.89 - Other specified abnormal findings of blood chemistry Coding Level of Care Code Est Pt Level 4 (90814) Diagnoses Type 2 diabetes mellitus with other specified complication, without long-term current use of insulin E11.69 Diabetes mellitus complication status: with other specified complication Diabetes mellitus intermediate card tender insulin use: without intermediate card tender use Diabetes mellitus type: type 2 Other migraine without status migrainosus, intractable G43.819 Intractability: intractable Migraine type: other Status migrainosus presence: without status migrainosus Lipid disorder E78.9 Constipation by delayed colonic transit K59.01 Gastroesophageal reflux disease without esophagitis K21.9 Esophagitis presence: without esophagitis LFT elevation R79.89 Varicose veins of left lower extremity, unspecified whether complicated I83.92 Varicose vein complication: unspecified
== END 2023-06-28 11:52 | disposition home or self-care (01) ==
PROVIDERS: PCP Internal Medicine; Visit Provider Internal Medicine
DX: E11.69 Type 2 diabetes mellitus with other specified complication (principal); G43.819 Other migraine, intractable, without status migrainosus; E78.9 Disorder of lipoprotein metabolism, unspecified; K59.01 Slow transit constipation; K21.9 Gastro-esophageal reflux disease without esophagitis; R79.89 Other specified abnormal findings of blood chemistry; I83.92 Asymptomatic varicose veins of left lower extremity
CPT/HCPCS: 99214

== ENCOUNTER 2023-06-28 11:52 | Outpatient (REF) | payer OTHER, SELFPAY ==
[2023-06-28 13:24] LABS: MANUAL DIFF FLAG NO
[2023-06-28 13:38] LABS: Basophils Percent Auto 0.8 % (0-2); Eosinophils Absolute Auto 0.1 X10*3/uL (0.0-0.4); Eosinophils Percent Auto 1.9 % (0-4); Hematocrit 39.7 % (37.0-47.0); Hemoglobin 13.4 g/dl (12.0-16.0); Lymphocytes Absolute Auto 1.6 X10*3/uL (1.2-4.9); Mean Corpuscular HGB Conc 33.8 g/dl (31.0-35.0); Mean Corpuscular Hemoglobin 31.4 pg (27.0-33.0); Mean Platelet Volume 10.1 fL (9.4-12.3); Monocytes Absolute Auto 0.2 X10*3/uL (0.1-1.2); Monocytes Percent Auto 5.6 % (2-11); Neutrophils Absolute Auto 1.9 x10*3/uL (2.0-8.3); Neutrophils Percent Auto 49.7 % (45-73); Platelet Count 284 X10*3/uL (160-400); Red Blood Count 4.27 X10*6/uL (4.20-5.50); Red Cell Distribution Width 12.1 % (11.0-16.0); White Blood Count 3.7 X10*3/uL (4.8-10.8)
[2023-06-28 13:56] LABS: Alanine Aminotransferase 30 U/L (0-31); Albumin Level 4.3 g/dL (3.5-5.0); Alkaline Phosphatase 70 U/L (39-117); Anion Gap 11 (12-20); Aspartate Amino Transferase 21 U/L (5-31); Bilirubin Total 0.3 mg/dL (0.0-1.0); Blood Urea Nitrogen 14 mg/dL (9-16); Carbon Dioxide 27 mmol/L (22-29); Chloride 107 mmol/L (96-108); Cholesterol 198 mg/dL (<200); Estimated Glomerular Filt Rate > 60; Glucose Fasting 102 mg/dL (60-99); HDL Cholesterol 64 mg/dL (>40); LDL Cholesterol Calculated 126 mg/dL (<100); Potassium 3.9 mmol/L (3.3-5.1); Sodium 141 mmol/L (135-145); Total Protein 7.8 g/dL (6.5-8.0); Triglycerides 41 mg/dL (<150)
[2023-06-28 14:03] LABS: Estimated Average Glucose 123 mg/dL; Hemoglobin A1c % 5.9 % (<6.0)
[2023-06-28 14:05] LABS: Creatinine Urine 62.92 mg/dL; Microalbumin Urine < 5.0 mg/L
[2023-06-28 14:22] LABS: Erythrocyte Sedimentation Rate 25 MM/HR (0-20)
== END 2023-06-28 11:53 | disposition home or self-care (01) ==
LOC: HO.HMGCLDS 11:52
PROVIDERS: PCP Internal Medicine; Visit Provider Internal Medicine
DX: E11.9 Type 2 diabetes mellitus without complications (principal); K21.9 Gastro-esophageal reflux disease without esophagitis; G43.909 Migraine, unspecified, not intractable, without status migrainosus; E78.9 Disorder of lipoprotein metabolism, unspecified; K59.01 Slow transit constipation; R79.89 Other specified abnormal findings of blood chemistry; I83.92 Asymptomatic varicose veins of left lower extremity
CPT/HCPCS: 36415; 80053; 80061; 82043; 82570; 83036; 85025; 85652

== ENCOUNTER 2023-09-22 14:17 | Outpatient (AMB) | payer OTHER, SELFPAY ==
--- NOTE | 2023-09-22 14:25 | A.OFFPC_ITS ---
Vital Signs 3 09/22/23 14:27 Height 5 ft 5 in Weight 145 lb 8 oz BMI 24.2 BP 114/80 Blood Pressure Location Lt brachial Position Sitting Pulse 74 Pulse Source Pulse Oximeter Pulse Oximetry (%) 97 Oxygen Delivery Method Room Air Intake Visit Reasons: Annual PE Allergies diphenhydramine [From BENADRYL] Allergy (Intermediate, Verified 09/22/23 14:27) LETHARGY ibuprofen [IBUPROFEN] Allergy (Intermediate, Verified 09/22/23 14:27) CHEST PAIN, Acute stomach and itchy iopromide [From Ultravist] Allergy (Mild, Verified 09/22/23 14:27) THROAT TIGHTNESS FOOD COLORING Allergy (Mild, Uncoded 09/22/23 14:27) SORE THROAT/ITCHINESS Lactulose Adverse Reaction (Intermediate, Uncoded 09/22/23 14:27) hives Tobacco use date assessed: 06/28/23 Dental Screening Dental Screen Date: 06/28/23 HPI Annual PE 2 HPI0 Details Physical exam appointment Colonoscopy 2019 Pap smear through [facility] Mammogram is up-to-date Patient 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 Hemoglobin A1c has been stable, last set of lab was June Patient will have labs done before her next visit Follow-up 4 months for diabetes in 1 year for physical exam [facility] Medical History Breast cyst Tubular adenoma of colon Constipation by delayed colonic transit GERD (gastroesophageal reflux disease) Surgical History History of ankle surgery History of cataract extraction H/O colonoscopy Family History Sister High cholesterol Mother No problems noted. Father No problems noted. Social History Household Members: Children Housing: House Alcohol intake: never Patient Tobacco Use Status: Never used Tobacco e-Cigarette/Vaping Use: Never Used service: No Current occupational status: employed Cognitive needs: No Hearing needs: No Vision needs: No Questionnaire PHQ-9 Over the last 2 weeks, how often have you been bothered by any of the following problems? 1. Little interest or pleasure in doing things: not at all 2. Feeling down, depressed, or hopeless: not at all 3. Trouble falling or staying asleep, or sleeping too much: not at all 4. Feeling tired or having little energy: more than half the days 5. Poor appetite or overeating: not at all 6. Feeling bad about yourself - or that you are a failure or have let yourself or your family down: not at all 7. Trouble concentrating on things, such as reading the newspaper or watching television: not at all 8. Moving or speaking so slowly that other people could have noticed. Or the opposite - being so fidgety or restless that you have been moving around a lot more than usual: not at all 9. Thoughts that you would be better off or of hurting yourself in some way: not at all Total score: 2 Depression Screening Interpretation: Negative Depression Screening Done: Yes 43973 - PHQ-9 Billing: Yes Source: Developed by Drs. Freddy Fisher, Paola Tariq, Colton Ordoñez and colleagues, with an educational esthela from [employer]. Thrive Questionnaire Date Thrive assessed: 06/08/21 I am a: Patient What is your living situation today?: I have a steady place to live Within the past 12 months, did the food you bought not last and you didn't have the money to get more?: Never true Within the past 12 months, did you worry whether your food would run out before you got money to buy more?: Never true Do you have trouble paying for medicines?: No Do you have trouble getting transportation to medical appointments?: Yes Do you have trouble paying your heating and electricity bill?: No Do you have trouble taking care of your child, family member or friend?: No Do you have trouble with day-to-day activities such as bathing, preparing meals, shopping, managing finances, etc.?: No Are you currently unemployed and looking for a job?: No Are you interested in more education?: Yes Please select the resources that you would like help with: Education Currently or been in a relationship where the following occur: no concerns reported THRIVE Score: 1 AUDIT C Alcohol Use Questionnaire (AUDIT-C) 1. How often do you have a drink containing alcohol?: Never 3. How often do you have six or more drinks on one occasion?: Never Total Score: 0 Score Reviewed/Action Taken: Yes BIANCA-7 AMB Questionnaire BIANCA-7 Date BIANCA - 7 assessed: 06/08/21 Feeling nervous, anxious, or on edge: 2 = More than half the days Not being able to stop or control worryin = Not at all Worrying too much about different things: 1 = Several days Trouble relaxin = Not at all Being so restless that it is hard to sit still: 0 = Not at all Becoming easily annoyed or irritable: 0 = Not at all Feeling afraid as if something awful might happen: 1 = Several days Total BIANCA-7 score (0-4 normal; 5-9 mild; 10-14 moderate; 15-21 severe): 4 Source: Developed by Drs. Freddy Fisher, Paola Tariq, Colton Ordoñez and colleagues, with an educational esthela from [employer]. BIANCA-7 Assessment Billing BIANCA-7 Assessment Tool: BIANCA-7 Assessment [id number] Review of Systems Const Denies chills, Denies fever(s) and Denies headache(s) Eyes Denies blurry vision ENT Denies headache(s), Denies nasal discharge, Denies nasal obstruction, Denies odynophagia and Denies sinus pain Card Denies chest pain at rest and Denies chest pain with activity Resp Denies cough and Denies hemoptysis GI Denies diarrhea, Denies odynophagia, Denies vomiting and Denies hematemesis Reports as per HPI Musc Denies abnormal gait Skin/Breast Reports as per HPI Neuro Denies Neuro-related abnormal movements, Denies Abnormal speech present, Denies abnormal gait, Denies headache(s) and Denies Sensory deficit (Neuro) Psych Denies mood swings and Denies paranoia Endo Reports as per HPI Alvin/Lymph Reports as per HPI Aller/Immun Reports as per HPI Physical exam (Primary Care) Vital Signs: Last Vital Signs Pulse 74 09/22/23 14:27 BP 114/80 09/22/23 14:27 Pulse Ox 97 09/22/23 14:27 Oxygen Delivery Method Room Air 09/22/23 14:27 BMI result Body Mass Index 24.2 Tobacco/Smoking Status: Tobacco use Status Tobacco use date assessed 06/28/23 09/22/23 14:26 Patient Tobacco Use Status Never used Tobacco 09/22/23 14:26 e-Cigarette/Vaping Use Never Used 09/22/23 14:26 PHQ-9: PHQ-9 Score PHQ-9: Total score 2 09/22/23 15:40 Depression Screening Interpretation: Negative Thrive Assessment: Date of Thrive Assessment Date Thrive assessed 06/08/21 09/22/23 14:26 Currently or been in a relationship where the following occur: no concerns reported Const General: cooperative, comfortable and no acute distress Orientation/consciousness: patient oriented x3 HENMT Head: Yes normocephalic Head images: 2 1. Tender due to work-related injury 8 days ago Eyes General: appearance normal, both eyes and all related structures Pupils: Equal, round and reactive pupils present EOM: EOMs intact bilaterally Neck Neck: Yes supple and No lymphadenopathy Thyroid: Thyroid normal Lymphatic: no lymphadenopathy noted Resp Effort & Inspection: normal respiratory effort and able to speak in complete sentences Auscultation: clear to auscultation bilaterally Cardio Heart sounds: S1 normal heart sound present and S2 normal heart sound present GI Palpation (GI): Soft to palpation and nontender Auscultation: normal bowel sounds General: Yes no CVA tenderness Back/Spine/Pelvis Back: no CVA tenderness Skin General skin exam: elasticity normal and turgor normal Neuro General: patient oriented x3 and gait normal Cranial nerves: Yes Equal, round and reactive pupils present Speech: No Abnormal speech present Sensory Exam: No Sensory deficit (Neuro) Coordination: tandem gait normal and Romberg test negative Extrem General: Yes normal exam except as noted and No edema Assessment and Plan Assessment & Plan (1) Encounter for general adult medical examination with abnormal findings: Code(s): Z00.01 - Encounter for general adult medical examination with abnormal findings (2) Diabetes mellitus: Code(s): E11.9 - Type 2 diabetes mellitus without complications Qualifiers: Diabetes mellitus complication status: with other specified complication Diabetes mellitus joint terminal attack controller insulin use: without fdc use Diabetes mellitus type: type 2 Qualified Code(s): E11.69 - Type 2 diabetes mellitus with other specified complication (3) Migraine headache: Code(s): G43.909 - Migraine, unspecified, not intractable, without status migrainosus Qualifiers: Intractability: intractable Migraine type: other Status migrainosus presence: without status migrainosus Qualified Code(s): G43.819 - Other migraine, intractable, without status migrainosus (4) Lipid disorder: Code(s): E78.9 - Disorder of lipoprotein metabolism, unspecified (5) Constipation by delayed colonic transit: Code(s): K59.01 - Slow transit constipation (6) GERD (gastroesophageal reflux disease): Code(s): K21.9 - Gastro-esophageal reflux disease without esophagitis Qualifiers: Esophagitis presence: without esophagitis Qualified Code(s): K21.9 - Gastro-esophageal reflux disease without esophagitis (7) LFT elevation: Comment: She is not taking herbs or etoh- Will do labs to include hepatitis panel Reviewed ultrasound Code(s): R79.89 - Other specified abnormal findings of blood chemistry (8) Varicose veins of left lower extremity: Code(s): I83.92 - Asymptomatic varicose veins of left lower extremity Qualifiers: Varicose vein complication: unspecified Qualified Code(s): I83.92 - Asymptomatic varicose veins of left lower extremity Plan Patient is 58-year-old female came in today for Physical exam appointment Colonoscopy 2019 Pap smear through [facility] Mammogram is up-to-date Lipid disorder: Controlled with the diet controlled GERD is stable patient is on omeprazole 40 mg through Gastroenterology. 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 Hemoglobin A1c has been stable, last set of lab was June Patient will have labs done before her next visit Follow-up 6 months for diabetes in 1 year for physical exam Orders: Orders 2 Complete Blood Count Auto Diff Today E11.69 - Type 2 diabetes mellitus with other specified complication, E78.9 - Disorder of lipoprotein metabolism, unspecified, R79.89 - Other specified abnormal findings of blood chemistry Comprehensive [place]. Panel Fast Today E11.69 - Type 2 diabetes mellitus with other specified complication, E78.9 - Disorder of lipoprotein metabolism, unspecified, R79.89 - Other specified abnormal findings of blood chemistry Hemoglobin A1c Today E11.69 - Type 2 diabetes mellitus with other specified complication, E78.9 - Disorder of lipoprotein metabolism, unspecified, R79.89 - Other specified abnormal findings of blood chemistry Microalbumin, Random (w Creat) Today E11.69 - Type 2 diabetes mellitus with other specified complication, E78.9 - Disorder of lipoprotein metabolism, unspecified, R79.89 - Other specified abnormal findings of blood chemistry Lipid Panel Today E11.69 - Type 2 diabetes mellitus with other specified complication, E78.9 - Disorder of lipoprotein metabolism, unspecified, R79.89 - Other specified abnormal findings of blood chemistry Coding Level of Care Code Est Pt Level 3 (04176) Est Pt Prev Care 40-64y(81449) Diagnoses Encounter for general adult medical examination with abnormal findings Z00.01 Type 2 diabetes mellitus with other specified complication, without long-term current use of insulin E11. Diabetes mellitus complication status: with other specified complication Diabetes mellitus fdc insulin use: without joint terminal attack controller use Diabetes mellitus type: type 2 Other migraine without status migrainosus, intractable G43.819 Intractability: intractable Migraine type: other Status migrainosus presence: without status migrainosus Lipid disorder E78.9 Constipation by delayed colonic transit K59.01 Gastroesophageal reflux disease without esophagitis K21.9 Esophagitis presence: without esophagitis LFT elevation R79.89 Varicose veins of left lower extremity, unspecified whether complicated I83.92 Varicose vein complication: unspecified Additional Codes BIANCA-7 Assessment Billing - BIANCA-7 Assessment Tool: BIANCA-7 Assessment [id number] ([id number])
[2023-09-22 14:27] VITALS: BP 114/80; PULSE 74; O2SAT 97; BMI 24.2
== END 2023-09-22 15:04 | disposition home or self-care (01) ==
PROVIDERS: PCP Internal Medicine; Visit Provider Internal Medicine
DX: Z00.00 Encounter for general adult medical examination without abnormal findings (principal); E11.69 Type 2 diabetes mellitus with other specified complication; G43.819 Other migraine, intractable, without status migrainosus; E78.9 Disorder of lipoprotein metabolism, unspecified; K59.01 Slow transit constipation; K21.9 Gastro-esophageal reflux disease without esophagitis; R79.89 Other specified abnormal findings of blood chemistry; I83.92 Asymptomatic varicose veins of left lower extremity
CPT/HCPCS: 99396

== ENCOUNTER 2023-09-22 14:51 | Outpatient (AMB) | payer OTHER, SELFPAY ==
--- NOTE | 2023-09-22 14:59 | MHC.PC.OV ---
Intake Visit Reasons: WC Allergies diphenhydramine [From BENADRYL] Allergy (Intermediate, Verified 09/22/23 14:27) LETHARGY ibuprofen [IBUPROFEN] Allergy (Intermediate, Verified 09/22/23 14:27) CHEST PAIN, Acute stomach and itchy iopromide [From Ultravist] Allergy (Mild, Verified 09/22/23 14:27) THROAT TIGHTNESS FOOD COLORING Allergy (Mild, Uncoded 09/22/23 14:27) SORE THROAT/ITCHINESS Lactulose Adverse Reaction (Intermediate, Uncoded 09/22/23 14:27) hives Medication List - Last Reconciled 09/22/23 by Isaiah Rosales MD blood sugar diagnostic (FreeStyle Lite Strips) patient to check fasting glucose once daily blood-glucose meter (FreeStyle Lite Meter kit) patient to check fasting glucose once daily cholecalciferol (vitamin D3) 25 mcg PO DAILY glipizide ER 2.5 mg PO DAILY 90 days lancets (FreeStyle Lancets) patient to check fasting glucose once daily [left hand wrist splint As directed] Tobacco use date assessed: 06/28/23 Dental Screening Dental Screen Date: 06/28/23 HPI WC HPI Details Patient is 58-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 patient was it at work When a 7-year-old child came in with battery operated heavy toy and hit her on left side of parietal area Patient felt dizzy and had severe neck pain after that along with scalp pain , there was no loss of consciousness She was taken to emergency room for evaluation Physical therapy was ordered for the neck But no x-rays or CT scan was done for the head She came in today for evaluation On examination left parietal area with palpation patient is having moderately severe pain There is no skin lesions or bumps I am ordering x-ray of her skull, we will also do a CT scan She is to continue physical therapy for cervical pain Follow-up 4 weeks Vital signs: Blood pressure 114/80 Pulse 74 regular Respiration 14 Pulse ox 97% on room air [facility] Medical History Breast cyst Tubular adenoma of colon Constipation by delayed colonic transit GERD (gastroesophageal reflux disease) Surgical History History of ankle surgery History of cataract extraction H/O colonoscopy Family History Sister High cholesterol Mother No problems noted. Father No problems noted. Social History Household Members: Children Housing: House Alcohol intake: never Patient Tobacco Use Status: Never used Tobacco e-Cigarette/Vaping Use: Never Used service: No Current occupational status: employed Cognitive needs: No Hearing needs: No Vision needs: No Questionnaire PHQ-9 Over the last 2 weeks, how often have you been bothered by any of the following problems? 1. Little interest or pleasure in doing things: not at all 2. Feeling down, depressed, or hopeless: more than half the days 3. Trouble falling or staying asleep, or sleeping too much: not at all 4. Feeling tired or having little energy: not at all 5. Poor appetite or overeating: not at all 6. Feeling bad about yourself - or that you are a failure or have let yourself or your family down: not at all 7. Trouble concentrating on things, such as reading the newspaper or watching television: not at all 8. Moving or speaking so slowly that other people could have noticed. Or the opposite - being so fidgety or restless that you have been moving around a lot more than usual: not at all 9. Thoughts that you would be better off or of hurting yourself in some way: not at all Total score: 2 Depression Screening Interpretation: Negative Depression Screening Done: Yes 43038 - PHQ-9 Billing: Yes Source: Developed by Drs. Freddy Fisher, Paola Tariq, Colton Ordoñez and colleagues, with an educational esthela from [employer]. Thrive Questionnaire Date Thrive assessed: 09/22/23 I am a: Patient What is your living situation today?: I have a steady place to live Within the past 12 months, did the food you bought not last and you didn't have the money to get more?: Never true Within the past 12 months, did you worry whether your food would run out before you got money to buy more?: Never true Do you have trouble paying for medicines?: No Do you have trouble getting transportation to medical appointments?: Yes Do you have trouble paying your heating and electricity bill?: No Do you have trouble taking care of your child, family member or friend?: No Do you have trouble with day-to-day activities such as bathing, preparing meals, shopping, managing finances, etc.?: No Are you currently unemployed and looking for a job?: No Are you interested in more education?: Yes Please select the resources that you would like help with: Education Currently or been in a relationship where the following occur: no concerns reported THRIVE Score: 1 BIANCA-7 AMB Questionnaire BIANCA-7 Date BIANCA - 7 assessed: 09/22/23 Feeling nervous, anxious, or on edge: 2 = More than half the days Not being able to stop or control worryin = Not at all Worrying too much about different things: 1 = Several days Trouble relaxin = Not at all Being so restless that it is hard to sit still: 0 = Not at all Becoming easily annoyed or irritable: 0 = Not at all Feeling afraid as if something awful might happen: 1 = Several days Total BIANCA-7 score (0-4 normal; 5-9 mild; 10-14 moderate; 15-21 severe): 4 Source: Developed by Drs. Freddy Fisher, Paola Tariq, Colton Ordoñez and colleagues, with an educational esthela from [employer]. BIANCA-7 Assessment Billing BIANCA-7 Assessment Tool: BIANCA-7 Assessment 44390 Review of Systems Const Denies chills and Denies fever(s) ENT Denies epistaxis and Denies nasal discharge Card Denies chest pain Resp Denies chest congestion, Denies cough and Denies hemoptysis GI Denies diarrhea and Denies nausea Skin/Breast Denies rash Neuro Reports no additional complaints Psych Reports no additional complaints Endo Reports no additional complaints Physical exam (Primary Care) Tobacco/Smoking Status: Tobacco use Status Tobacco use date assessed 06/28/23 09/22/23 15:03 Patient Tobacco Use Status Never used Tobacco 09/22/23 15:03 e-Cigarette/Vaping Use Never Used 09/22/23 15:03 Depression Screening Interpretation: Negative Thrive Assessment: Date of Thrive Assessment Date Thrive assessed 06/08/21 09/22/23 15:03 Currently or been in a relationship where the following occur: no concerns reported Const General: cooperative, comfortable and no acute distress Orientation/consciousness: patient oriented x3 [facility] Head: Yes normocephalic Head images: 1. Site of pain with palpation, no skin lesions or bumps Eyes General: appearance normal, both eyes and all related structures Resp Effort & Inspection: normal respiratory effort, no cough and no stridor Cardio Rhythm: regular rhythm Heart sounds: S1 normal heart sound present and S2 normal heart sound present Skin General skin exam: turgor normal Neuro Other: No focal neurological deficit, neck is supple General: patient oriented x3, tone normal and moves all extremities Extrem Right lower extremity: no edema Left lower extremity: no edema Assessment and Plan Assessment & Plan (1) Head trauma: Code(s): S09.90XA - Unspecified injury of head, initial encounter Qualifiers: Encounter type: initial encounter Qualified Code(s): S09.90XA - Unspecified injury of head, initial encounter (2) Scalp injury: Code(s): S09.90XA - Unspecified injury of head, initial encounter Qualifiers: Encounter type: initial encounter Qualified Code(s): S09.90XA - Unspecified injury of head, initial encounter (3) Work related injury: Code(s): Y99.0 - Civilian activity done for income or pay Plan 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 58-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 patient was it at work When a 7-year-old child came in with battery operated heavy toy and hit her on left side of parietal area Patient felt dizzy and had severe neck pain after that along with scalp pain , there was no loss of consciousness She was taken to emergency room for evaluation Physical therapy was ordered for the neck But no x-rays or CT scan was done for the head She came in today for evaluation On examination left parietal area with palpation patient is having moderately severe pain There is no skin lesions or bumps I am ordering x-ray of her skull, we will also do a CT scan She is to continue physical therapy for cervical pain Follow-up 4 weeks Orders: Orders XR skull <4V Today S09.90XA - Unspecified injury of head, initial encounter CT head/brain wo IV con Today S09.90XA - Unspecified injury of head, initial encounter Coding Level of Care Code Est Pt Level 4 (76510) Diagnoses Traumatic injury of head, initial encounter S09.90XA Encounter type: initial encounter Scalp injury, initial encounter S09.90XA Encounter type: initial encounter Work related injury Y99.0 Additional Codes BIANCA-7 Assessment Billing - BIANCA-7 Assessment Tool: BIANCA-7 Assessment 15185 ([id number])
== END 2023-09-22 15:14 | disposition home or self-care (01) ==
LOC: HO.HMGC 14:51
PROVIDERS: PCP Internal Medicine; Visit Provider Internal Medicine
DX: S09.90XA Unspecified injury of head, initial encounter (principal); Z04.2 Encounter for examination and observation following work accident
CPT/HCPCS: 99214

== ENCOUNTER 2023-09-25 15:32 | Outpatient (REF) | payer OTHER, SELFPAY ==
--- NOTE | ~2023-09-25 | XR_ITS ---
EXAMINATION: XR SKULL CLINICAL INFORMATION: Head injury COMPARISON: None available. TECHNIQUE: 5 views of the skull were obtained. FINDINGS: No fractures. Paranasal sinuses are well aerated. Mild degenerative changes are seen in the visualized cervical spine. XR/XR skull min 4V IMPRESSION: No fractures.
== END 2023-09-25 15:33 | disposition home or self-care (01) ==
LOC: HO.HMGCX 15:32
PROVIDERS: PCP Internal Medicine; Visit Provider Internal Medicine
DX: S09.90XA Unspecified injury of head, initial encounter (principal)
CPT/HCPCS: 70260

== ENCOUNTER 2023-10-19 10:49 | Outpatient (AMB) | payer OTHER, SELFPAY ==
--- NOTE | 2023-10-19 10:53 | AM.OFFWIN_ITS ---
Intake Vital Signs 10/19/23 10:55 Height 5 ft 5 in Weight 143 lb BMI 23.8 BP 116/78 Blood Pressure Location Rt brachial Position Sitting Pulse 86 Pulse Source Pulse Oximeter Temp 98.5 F Temp Source Oral Pulse Oximetry (%) 96 Oxygen Delivery Method Room Air Intake Visit Reasons: EP weak/passed out Intake Note: pt here c/o Weakness and syncopal episode yesterday. + LOC, ? hit head. Neck pain Patient Tobacco Use Status: Never used Tobacco Allergies diphenhydramine [From BENADRYL] Allergy (Intermediate, Verified 10/19/23 10:54) LETHARGY ibuprofen [IBUPROFEN] Allergy (Intermediate, Verified 10/19/23 10:54) CHEST PAIN, Acute stomach and itchy iopromide [From Ultravist] Allergy (Mild, Verified 10/19/23 10:54) THROAT TIGHTNESS FOOD COLORING Allergy (Mild, Uncoded 10/19/23 10:54) SORE THROAT/ITCHINESS Lactulose Adverse Reaction (Intermediate, Uncoded 10/19/23 10:54) hives Do you need a note to return to daycare/school/sports/work: No HPI EP weak/passed out HPI Details This note is constructed using voice recognition software. While every effort has been made to ensure accuracy, upholstery cutter errors may have been included. 58-year-old female presents 1 day status post syncopal episode, denies chest pain, palpitations, lightheadedness prior to that. She notes that she felt ?funny? prior to the event and She felt like in her body. She notes that she had attempted to go to the bathroom, but was unable to, and so she returned to the couch. When she stood up from the couch to go back to the bathroom she woke up on the floor less than 5 minutes later. She does not recall falling, or hitting anything. She has no additional areas of pain. No fever, chills, cough, shortness of breath, lightheadedness, dizziness, chest pain, palpitations. [facility], [facility] Medical History Breast cyst Tubular adenoma of colon Constipation by delayed colonic transit GERD (gastroesophageal reflux disease) Surgical History History of ankle surgery History of cataract extraction H/O colonoscopy Family History Sister High cholesterol Mother No problems noted. Father No problems noted. Social History Household Members: Children Housing: House Alcohol intake: never Patient Tobacco Use Status: Never used Tobacco e-Cigarette/Vaping Use: Never Used service: No Current occupational status: employed Cognitive needs: No Hearing needs: No Vision needs: No Review of Systems Const All systems reviewed & are unremarkable except as noted in HPI and below Physical Exam Vital Signs: Last Vital Signs Temp 98.5 F 10/19/23 10:55 Pulse 86 10/19/23 10:55 BP 116/78 10/19/23 10:55 Pulse Ox 96 10/19/23 10:55 Oxygen Delivery Method Room Air 10/19/23 10:55 BMI result Body Mass Index 23.8 Const General: cooperative, healthy appearing, comfortable, no acute distress and alert Orientation/consciousness: patient oriented x3 Limitations: no limitations HEENT Head: Yes normal to inspection and Yes normocephalic Ears: hearing grossly normal bilaterally General nose exam: Normal external nose present Face and sinus: Yes normal facial exam and Yes sinuses nontender Mouth: Normal oral and palatal mucosa present and tongue normal Teeth and gingiva: dentition normal Throat: Yes posterior oropharynx normal Eyes General: appearance normal, both eyes and all related structures Neck Neck: Yes normal visual inspection, Yes full ROM and Yes no lymphadenopathy Resp Effort & Inspection: normal respiratory effort and able to speak in complete sentences Auscultation: clear to auscultation bilaterally Cardio Jugular venous distension: no JVD Palpation: normal PMI Rate: regular rate Rhythm: regular rhythm Heart sounds: S1 normal heart sound present, S2 normal heart sound present, no click, no gallops, no murmurs and no rubs GI Inspection: Yes normal to inspection Palpation (GI): Soft to palpation and nontender Percussion: Yes normal to percussion Auscultation: normal bowel sounds Skin General skin exam: no rashes or lesions noted, elasticity normal and turgor normal Neuro General: patient oriented x3 Cranial nerves: Yes CN's II-XII intact bilaterally Extrem General: Yes normal to inspection, Yes full ROM, Yes capillary refill normal and Yes normal exam except as noted Psych Appearance: grossly normal Mental Status: mental status grossly normal Speech and movement: Normal speech and movement present Affect: normal affect Office Procedures EKG [id number], Complete Assessment & Plan Assessment & Plan (1) Syncope and collapse: Code(s): R55 - Syncope and collapse Plan: Etiology unclear, EKG in office today, Normal sinus rhythm. Patient has follow- up already scheduled with PCP tomorrow, advised to keep that appointment. May require additional workup. May entirely be related to a vasovagal episode secondary to viral gastroenteritis, or mild dehydration which does not appear to be present on exam today. Advised hydration, rest, avoidance of driving when dizzy. (2) Gastroenteritis: Code(s): K52.9 - Noninfective gastroenteritis and colitis, unspecified Plan: Advised adequate hydration methods to avoid dehydration. Follow up with PCP tomorrow as scheduled. Plan See above for full details and plan. Orders: Orders AMB EKG-In Office Today R55 - Syncope and collapse Coding Level of Care Code Est Pt Level 4 (45428) Diagnoses Syncope and collapse R55 Gastroenteritis K52.9 CPT Codes EKG - CPT: 06019-[id number], Complete ([id number]) Time Spent (min) 25
[2023-10-19 10:55] VITALS: BP 116/78; PULSE 86; TEMP 36.9; O2SAT 96; BMI 23.8
== END 2023-10-19 11:30 | disposition home or self-care (01) ==
PROVIDERS: PCP Internal Medicine; Visit Provider Registered Nurse
DX: R55 Syncope and collapse (principal); K52.9 Noninfective gastroenteritis and colitis, unspecified
CPT/HCPCS: 93000; 99213

== ENCOUNTER 2023-10-20 07:37 | Outpatient (AMB) | payer OTHER, SELFPAY ==
[2023-10-20 07:45] VITALS: BP 116/70; PULSE 83; O2SAT 98; BMI 24.0
--- NOTE | 2023-10-20 07:45 | A.OFFPC_ITS ---
Vital Signs 10/20/23 07:45 Height 5 ft 5 in Weight 144 lb BMI 24.0 BP 116/70 Blood Pressure Location Rt brachial Position Sitting Pulse 83 Pulse Source Pulse Oximeter Pulse Oximetry (%) 98 Oxygen Delivery Method Room Air Intake Visit Reasons: WC 4 Week Follow Up Allergies diphenhydramine [From BENADRYL] Allergy (Intermediate, Verified 10/20/23 07:47) LETHARGY ibuprofen [IBUPROFEN] Allergy (Intermediate, Verified 10/20/23 07:47) CHEST PAIN, Acute stomach and itchy iopromide [From Ultravist] Allergy (Mild, Verified 10/20/23 07:47) THROAT TIGHTNESS FOOD COLORING Allergy (Mild, Uncoded 10/20/23 07:47) SORE THROAT/ITCHINESS Lactulose Adverse Reaction (Intermediate, Uncoded 10/20/23 07:47) hives Medication List - Last Reconciled 10/20/23 by Isaiah Rosales MD blood sugar diagnostic (FreeStyle Lite Strips) patient to check fasting glucose once daily blood-glucose meter (FreeStyle Lite Meter kit) patient to check fasting glucose once daily cholecalciferol (vitamin D3) 25 mcg PO DAILY glipizide ER 2.5 mg PO DAILY 90 days lancets (FreeStyle Lancets) patient to check fasting glucose once daily [left hand wrist splint As directed] Tobacco use date assessed: 10/20/23 Dental Screening Dental Screen Date: 10/20/23 Did you have a dental visit in the last 12 months?: Yes Did you have a dental problem in the last 6 months where you did not have access to dental care?: No Was dental information given to patient?: Patient has dentist HPI WC 4 Week Follow Up HPI Details Patient is 58-year-old female came in today to be evaluated for syncope She was evaluated in our walk-in clinic yesterday Episode happened 2 days ago Patient says that she came from her basement into the kitchen and felt lightheaded so she went into the living room and sat down, when she was sitting down she felt better Then she got up to go to bathroom in the bathroom she started having lightheadedness again She sat down on the commode to urinate but she could not. So she tried to get out of the bathroom as soon as possible Because patient did not wanted to fall there In the living room she sat down again and felt better. After couple of minutes she stood up and then she does not remember what happened When she regained her consciousness she was on the floor, she called her son who was upstairs came down and helped patient get up. She did not go to emergency room as she started feeling better She is on a small dose of glipizide 2.5 mg for diabetes Her sugar a day before syncopal episode was 87 during the day She is feeling fine today there is no neurological deficit However continued to feel lightheaded off and on I am stopping her glipizide Note given to be off work for next week She will be evaluated by Neurology If symptoms started developing again patient needs to go to emergency room. EKG was done in walk-in clinic yesterday That showed normal sinus rhythm no acute findings heart rate of 92 beats per minute Patient need to stay away from heat and hydrate herself well at home. We will book a follow-up appointment through telemedicine on Labs to be done today. [facility] Medical History Breast cyst Tubular adenoma of colon Constipation by delayed colonic transit GERD (gastroesophageal reflux disease) Surgical History History of ankle surgery History of cataract extraction H/O colonoscopy Family History Sister High cholesterol Mother No problems noted. Father No problems noted. Social History Household Members: Children Housing: House Alcohol intake: never Patient Tobacco Use Status: Never used Tobacco e-Cigarette/Vaping Use: Never Used service: No Current occupational status: employed Cognitive needs: No Hearing needs: No Vision needs: No Questionnaire Thrive Questionnaire Date Thrive assessed: 09/22/23 BIANCA-7 AMB Questionnaire BIANCA-7 Date BIANCA - 7 assessed: 09/22/23 Source: Developed by Drs. Freddy Fisher, Paola Tariq, Colton Ordoñez and colleagues, with an educational esthela from [employer]. Review of Systems Const Denies chills and Denies fever(s) ENT Denies epistaxis and Denies nasal discharge Card Denies chest pain Resp Denies chest congestion, Denies cough and Denies hemoptysis GI Denies diarrhea and Denies nausea Skin/Breast Denies rash Neuro Reports no additional complaints Psych Reports no additional complaints Endo Reports no additional complaints Physical exam (Primary Care) Vital Signs: Last Vital Signs Pulse 83 10/20/23 07:45 BP 116/70 10/20/23 07:45 Pulse Ox 98 10/20/23 07:45 Oxygen Delivery Method Room Air 10/20/23 07:45 BMI result Body Mass Index 24.0 Tobacco/Smoking Status: Tobacco use Status Tobacco use date assessed 10/20/23 10/20/23 07:48 Patient Tobacco Use Status Never used Tobacco 10/20/23 07:48 e-Cigarette/Vaping Use Never Used 10/20/23 07:48 Thrive Assessment: Date of Thrive Assessment Date Thrive assessed 09/22/23 10/20/23 07:48 Const General: cooperative, comfortable and no acute distress Orientation/consciousness: patient oriented x3 HENMT Head: Yes normocephalic Eyes General: appearance normal, both eyes and all related structures Neck Neck: Yes supple Resp Effort & Inspection: normal respiratory effort, no cough and no stridor Cardio Rhythm: regular rhythm Heart sounds: S1 normal heart sound present and S2 normal heart sound present Skin General skin exam: turgor normal Neuro Other: Neuro exam is nonfocal, eye exam within normal limit, neck is supple General: patient oriented x3, tone normal and moves all extremities Extrem Right lower extremity: no edema Left lower extremity: no edema Assessment and Plan Assessment & Plan (1) Syncope: Code(s): R55 - Syncope and collapse Qualifiers: Syncope type: unspecified Qualified Code(s): R55 - Syncope and collapse Plan Patient is 58-year-old female came in today to be evaluated for syncope She was evaluated in our walk-in clinic yesterday Episode happened 2 days ago Patient says that she came from her basement into the kitchen and felt lightheaded so she went into the living room and sat down, when she was sitting down she felt better Then she got up to go to bathroom in the bathroom she started having lightheadedness again She sat down on the commode to urinate but she could not. So she tried to get out of the bathroom as soon as possible Because patient did not wanted to fall there In the living room she sat down again and felt better. After couple of minutes she stood up and then she does not remember what happened When she regained her consciousness she was on the floor, she called her son who was upstairs came down and helped patient get up. She did not go to emergency room as she started feeling better She is on a small dose of glipizide 2.5 mg for diabetes Her sugar a day before syncopal episode was 87 during the day She is feeling fine today there is no neurological deficit However continued to feel lightheaded off and on I am stopping her glipizide Note given to be off work for next week She will be evaluated by Neurology If symptoms started developing again patient needs to go to emergency room. EKG was done in walk-in clinic yesterday That showed normal sinus rhythm no acute findings heart rate of 92 beats per minute Patient need to stay away from heat and hydrate herself well at home. We will book a follow-up appointment through telemedicine on Labs to be done today. 45 minutes spent in care of this patient, reviewing chart, previous notes [id number] with the patient coordination of care Orders: Orders TSH reflex Free T4 Today R55 - Syncope and collapse Complete Blood Count Auto Diff Today R55 - Syncope and collapse Comprehensive Met. Panel Today R55 - Syncope and collapse Hemoglobin A1c Today R55 - Syncope and collapse Referrals Neurology Referral R55 - Syncope and collapse Coding Level of Care Code Est Pt Level 5 (53667) Diagnoses Syncope, unspecified syncope type R55 Syncope type: unspecified
== END 2023-10-20 08:34 | disposition home or self-care (01) ==
PROVIDERS: PCP Internal Medicine; Visit Provider Internal Medicine
DX: R55 Syncope and collapse (principal); E11.9 Type 2 diabetes mellitus without complications
CPT/HCPCS: 99215

== ENCOUNTER 2023-10-20 08:16 | Outpatient (REF) | payer OTHER, SELFPAY ==
[2023-10-20 10:21] LABS: MANUAL DIFF FLAG NO
[2023-10-20 10:36] LABS: Basophils Percent Auto 0.5 % (0-2); Eosinophils Percent Auto 0.9 % (0-4); Hematocrit 40.1 % (37.0-47.0); Hemoglobin 13.2 g/dl (12.0-16.0); Imm Gran Abs Auto 0.01 X10*3/uL (0.00-0.03); Imm Gran Pct Auto 0.2 % (0.0-0.4); Lymphocytes Absolute Auto 1.3 X10*3/uL (1.2-4.9); Lymphocytes Percent Auto 29.3 % (20-40); Mean Corpuscular HGB Conc 32.9 g/dl (31.0-35.0); Mean Corpuscular Hemoglobin 30.7 pg (27.0-33.0); Mean Corpuscular Volume 93.3 fL (80.0-98.0); Monocytes Absolute Auto 0.3 X10*3/uL (0.1-1.2); Monocytes Percent Auto 7.3 % (2-11); Neutrophils Absolute Auto 2.7 x10*3/uL (2.0-8.3); Neutrophils Percent Auto 61.8 % (45-73); Platelet Count 287 X10*3/uL (160-400); Red Cell Distribution Width 12.3 % (11.0-16.0); White Blood Count 4.4 X10*3/uL (4.8-10.8)
[2023-10-20 10:49] LABS: Alanine Aminotransferase 18 U/L (0-31); Albumin Level 4.1 g/dL (3.5-5.0); Alkaline Phosphatase 63 U/L (39-117); Anion Gap 10 (12-20); Aspartate Amino Transferase 13 U/L (5-31); Bilirubin Total 0.5 mg/dL (0.0-1.0); Blood Urea Nitrogen 12 mg/dL (9-16); Calcium 10.1 mg/dL (8.4-10.2); Carbon Dioxide 25 mmol/L (22-29); Chloride 107 mmol/L (96-108); Cholesterol 177 mg/dL (<200); Estimated Glomerular Filt Rate > 60; Glucose Fasting 77 mg/dL (60-99); Glucose Random 77 mg/dL (60-115); HDL Cholesterol 50 mg/dL (>40); LDL Cholesterol Calculated 117 mg/dL (<100); Sodium 138 mmol/L (135-145); Total Protein 7.4 g/dL (6.5-8.0); Triglycerides 50 mg/dL (<150)
[2023-10-20 10:58] LABS: Estimated Average Glucose 123 mg/dL; Hemoglobin A1c % 5.9 % (<6.0)
[2023-10-20 11:08] LABS: TSH reflex Free T4 1.24 uIU/mL (0.32-4.0)
[2023-10-20 11:48] LABS: Creatinine Urine 37.82 mg/dL; Microalbumin Urine < 5.0 mg/L
== END 2023-10-20 08:17 | disposition home or self-care (01) ==
LOC: HO.HMGCLDS 08:16
PROVIDERS: PCP Internal Medicine; Visit Provider Internal Medicine
DX: R79.89 Other specified abnormal findings of blood chemistry (principal); E11.69 Type 2 diabetes mellitus with other specified complication; E78.9 Disorder of lipoprotein metabolism, unspecified; R55 Syncope and collapse
CPT/HCPCS: 36415; 80053; 80061; 82043; 82570; 83036; 84443; 85025

== ENCOUNTER 2023-10-26 08:08 | Outpatient (AMB) | payer OTHER, SELFPAY ==
--- NOTE | 2023-10-26 08:21 | A.OFFPC_ITS ---
Intake Visit Reasons: 1 wk f/u~ [phone] Allergies diphenhydramine [From BENADRYL] Allergy (Intermediate, Verified 10/26/23 08:22) LETHARGY ibuprofen [IBUPROFEN] Allergy (Intermediate, Verified 10/26/23 08:22) CHEST PAIN, Acute stomach and itchy iopromide [From Ultravist] Allergy (Mild, Verified 10/26/23 08:22) THROAT TIGHTNESS FOOD COLORING Allergy (Mild, Uncoded 10/20/23 07:47) SORE THROAT/ITCHINESS Lactulose Adverse Reaction (Intermediate, Uncoded 10/20/23 07:47) hives Medication List - Last Reconciled 10/26/23 by Isaiah Rosales MD blood sugar diagnostic (FreeStyle Lite Strips) patient to check fasting glucose once daily blood-glucose meter (FreeStyle Lite Meter kit) patient to check fasting glucose once daily cholecalciferol (vitamin D3) 25 mcg PO DAILY glipizide ER 2.5 mg PO DAILY 90 days lancets (FreeStyle Lancets) patient to check fasting glucose once daily [left hand wrist splint As directed] meclizine 25 mg PO TID PRN 10 days Tobacco use date assessed: 10/26/23 Dental Screening Dental Screen Date: 10/26/23 Did you have a dental visit in the last 12 months?: Yes Did you have a dental problem in the last 6 months where you did not have access to dental care?: No Was dental information given to patient?: Patient has dentist HPI 1 wk f/u~ [phone] HPI Details Patient is 58-year-old female this is a telemedicine visit Her labs came back fine She is holding glipizide Continued to feel dizzy when she is moving I have sent meclizine 25 mg tablet She may take the medication 3 times a day 8 hours apart as needed Patient says that since she is feeling little bit better she would like to go back to work If she started having dizziness she will take few more days of Number to Neurology office provided to patient so she can call and book the appointment. [facility] Medical History Breast cyst Tubular adenoma of colon Constipation by delayed colonic transit GERD (gastroesophageal reflux disease) Surgical History History of ankle surgery History of cataract extraction H/O colonoscopy Family History Sister High cholesterol Mother No problems noted. Father No problems noted. Social History Household Members: Children Housing: House Alcohol intake: never Patient Tobacco Use Status: Never used Tobacco e-Cigarette/Vaping Use: Never Used service: No Current occupational status: employed Cognitive needs: No Hearing needs: No Vision needs: No Questionnaire Thrive Questionnaire Date Thrive assessed: 09/22/23 AUDIT C Alcohol Use Questionnaire (AUDIT-C) 1. How often do you have a drink containing alcohol?: Never 3. How often do you have six or more drinks on one occasion?: Never Total Score: 0 Score Reviewed/Action Taken: Yes BIANCA-7 AMB Questionnaire BIANCA-7 Date BIANCA - 7 assessed: 09/22/23 Source: Developed by Drs. Freddy Fisher, Paola Tariq, Colton Ordoñez and colleagues, with an educational esthela from [employer]. Review of Systems Const Denies chills and Denies fever(s) ENT Denies epistaxis and Denies nasal discharge Card Denies chest pain Resp Denies chest congestion, Denies cough and Denies hemoptysis GI Denies diarrhea and Denies nausea Skin/Breast Denies rash Neuro Reports no additional complaints Psych Reports no additional complaints Endo Reports no additional complaints Physical exam (Primary Care) Tobacco/Smoking Status: Tobacco use Status Tobacco use date assessed 10/26/23 10/26/23 08:23 Patient Tobacco Use Status Never used Tobacco 10/26/23 08:23 e-Cigarette/Vaping Use Never Used 10/26/23 08:23 Thrive Assessment: Date of Thrive Assessment Date Thrive assessed 09/22/23 10/26/23 08:23 Telehealth Telehealth Telehealth Platform: [facility] Location of provider rendering services: practice address Location of patient: address on file Patient Identification confirmed using: Name, : Yes Telehealth method: video Patient verbally consented to treatment: Yes Patient verbally consented to billing insurance company: Yes Patient informed of any privacy concerns related to visit: Yes Minutes spent on Phone/Video with Pt.: 13 Assessment and Plan Assessment & Plan (1) Syncope: Code(s): R55 - Syncope and collapse Qualifiers: Syncope type: unspecified Qualified Code(s): R55 - Syncope and collapse Plan Patient is 58-year-old female this is a telemedicine visit Her labs came back fine She is holding glipizide Continued to feel dizzy when she is moving I have sent meclizine 25 mg tablet She may take the medication 3 times a day 8 hours apart as needed Patient says that since she is feeling little bit better she would like to go back to work If she started having dizziness she will take few more days of Number to Neurology office provided to patient so she can call and book the appointment. Medications: New meclizine 25 mg PO TID PRN 30 tabs 0RF dizziness 10 days Coding Level of Care Code Tele Est Pt Level 3 (34228) Diagnoses Syncope, unspecified syncope type R55 Syncope type: unspecified
== END 2023-10-26 11:05 | disposition home or self-care (01) ==
LOC: HO.HMGC 08:08
PROVIDERS: PCP Internal Medicine; Visit Provider Internal Medicine
DX: R55 Syncope and collapse (principal)
CPT/HCPCS: 99213

== ENCOUNTER 2024-02-16 09:47 | Outpatient (REF) | payer OTHER, SELFPAY ==
--- NOTE | ~2024-02-16 | XR_ITS ---
EXAMINATION: XR CHEST CLINICAL INFORMATION: Cough. COMPARISON: None available. TECHNIQUE: 2 views of the chest were obtained. FINDINGS: The lungs are clear. The cardiomediastinal silhouette is normal in size. There is no pleural effusion or pneumothorax. No acute osseous abnormality. XR/XR chest 2V IMPRESSION: No acute cardiopulmonary findings. Electronically signed by: Ian Morin MD 02/16/2024 12:01 PM [facility]
== END 2024-02-16 09:48 | disposition home or self-care (01) ==
LOC: HO.HMGCX 09:47
PROVIDERS: PCP Internal Medicine; Visit Provider Physician Assistant Medical
DX: R05.2 Subacute cough (principal)
CPT/HCPCS: 71046; 99212

== ENCOUNTER 2024-02-16 09:47 | Outpatient (AMB) | payer OTHER, SELFPAY ==
--- NOTE | 2024-02-16 09:57 | AM.OFFWIN_ITS ---
Intake Vital Signs 02/16/24 09:58 Weight 149 lb 8 oz BP 110/80 Blood Pressure Location Lt brachial Position Sitting Pulse 79 Pulse Source Pulse Oximeter Temp 98.2 F Temp Source Oral Pulse Oximetry (%) 98 Oxygen Delivery Method Room Air Intake Visit Reasons: EP persistent cough, pressure/tightness in chest Intake Note: patient here for wheezing, chest tightness and SOb that has been present since last week. Patient Tobacco Use Status: Never used Tobacco Allergies diphenhydramine [From BENADRYL] Allergy (Intermediate, Verified 02/16/24 10:02) LETHARGY ibuprofen [IBUPROFEN] Allergy (Intermediate, Verified 02/16/24 10:02) CHEST PAIN, Acute stomach and itchy iopromide [From Ultravist] Allergy (Mild, Verified 02/16/24 10:02) THROAT TIGHTNESS FOOD COLORING Allergy (Mild, Uncoded 02/16/24 10:02) SORE THROAT/ITCHINESS Lactulose Adverse Reaction (Intermediate, Uncoded 02/16/24 10:02) hives HPI HPI Comments History of Present Illness Details This is a 58-year-old female who presented to the walk-in clinic complaining of a persistent cough times 1 week. Patient states she had a cold beginning approximately 3 weeks ago although those symptoms have resolved at this point. She then started to develop this persistent hacking cough about 1 week ago. She denies any chest pain or shortness of breath but does state that she feels as though she has ?sharp breathing? with the cough. She denies any sputum production. She denies any fevers or chills. She denies any abdominal pain or nausea/vomiting/diarrhea. REPLACED BY [facility] Medical History Breast cyst Tubular adenoma of colon Constipation by delayed colonic transit GERD (gastroesophageal reflux disease) Surgical History History of ankle surgery History of cataract extraction H/O colonoscopy Family History Sister High cholesterol Mother No problems noted. Father No problems noted. Social History Household Members: Children Housing: House Alcohol intake: never Patient Tobacco Use Status: Never used Tobacco e-Cigarette/Vaping Use: Never Used service: No Current occupational status: employed Cognitive needs: No Hearing needs: No Vision needs: No Review of Systems Const All systems reviewed & are unremarkable except as noted in HPI and below Reports no additional complaints Eyes Reports no additional complaints ENT Reports no additional complaints Card Reports no additional complaints Resp Reports no additional complaints GI Reports no additional complaints Reports no additional complaints Musc Reports no additional complaints Skin/Breast Reports system reviewed and no additional complaints, except as documented Neuro Reports no additional complaints Psych Reports no additional complaints Endo Reports no additional complaints Alvin/Lymph Reports no additional complaints Aller/Immun Reports no additional complaints Physical Exam Vital Signs: Last Vital Signs Temp 98.2 F 02/16/24 09:58 Pulse 79 02/16/24 09:58 BP 110/80 02/16/24 09:58 Pulse Ox 98 02/16/24 09:58 Oxygen Delivery Method Room Air 02/16/24 09:58 Const Other: Vital signs reviewed. Constitutional: Non-toxic appearing. No acute distress. Well-developed and well-nourished. HEENT: Normocephalic and atraumatic. Skin: Warm and dry. No rashes or lesions noted. Neck: Full and painless range of motion. No cervical lymphadenopathy. Cardio: Regular rate and rhythm. No murmurs, gallops, or rubs. No lower extremity edema. No JVD. Pulmonary: No respiratory distress. No accessory muscle usage. Clear to auscultation bilaterally without wheezing, crackles, or rhonchi. She has an occasional hacking cough. Musculoskeletal: Normal range of motion in joints throughout the body. No deformity or other signs of injury. Neuro: Alert and oriented x4. Cranial nerves 2-12 grossly intact. No focal deficits appreciated. Psych: Normal mood and affect. Assessment & Plan Assessment & Plan (1) Cough: Code(s): R05.9 - Cough, unspecified Qualifiers: Cough type: subacute Qualified Code(s): R05.2 - Subacute cough Plan: This is a 58-year-old female who presented to the walk-in clinic complaining of a persistent cough x1 week in the setting of recent viral URI. She has no sputum production/purulence been no fever/chills. Her lungs are clear to auscultation bilaterally. A chest x-ray was obtained, which was negative for acute cardiopulmonary process. Patient is likely suffering from a post viral cough. Patient was sent home on p.o. benzonatate 100 mg 3 times daily as needed for cough. Patient was advised to follow-up here or proceed to the emergency room if she were to develop worsening shortness of breath, sputum production/purulence, fever/chills, or chest pain. Patient verbalized understanding and she is in agreement with the plan. Orders: Orders XR chest 2V Today R05.9 - Cough, unspecified Medications: New benzonatate 100 mg PO TID PRN 20 caps 0RF cough Coding Level of Care Code Est Pt Level 3 (87225) Diagnoses Subacute cough R05.2 Cough type: subacute
[2024-02-16 09:58] VITALS: BP 110/80; PULSE 79; TEMP 36.8; O2SAT 98
== END 2024-02-16 11:17 | disposition home or self-care (01) ==
PROVIDERS: PCP Internal Medicine; Visit Provider Physician Assistant Medical
DX: R05.2 Subacute cough (principal)

== ENCOUNTER 2024-05-10 14:50 | Outpatient (AMB) | payer OTHER, SELFPAY ==
--- OUTSIDE RECORDS SUMMARY | 2024-05-10 14:53 | XMS_ITS | Encounter Summary ---
Author Organization [employer] Address [address] [place] [address] [place] [address] Care Team Providers Care Digester Operator Name Role Phone Unavailable Primary Care Provider Unavailabl e Encounter Details Date Type Department Care Team (Latest Contact Info) Description 01/22/[address] [facility] CONVERSIONS Dental, Provider, DDS Social History Tobacco Use Types Packs/Day Years Used Date Smoking Tobacco: Never Assessed Comments Unknown Sex and Gender Information Value Date Recorded Sex Assigned at Female 02/07/2022 10:23 AM EDT Legal Sex Female 10:23 AM EDT Gender Identity Female 02/07/2022 10:23 AM EDT Sexual Orientation Straight 02/07/2022 10 :23 AM EDT documented as of this encounter Plan of Treatment Not on file documented as of this encounter Visit Diagnoses Not on filedocumented in this encounter
--- OUTSIDE RECORDS SUMMARY | 2024-05-10 14:53 | XMS_ITS | Clinical Summary ---
Author Organization [email or web address] Address [address] [place] [address] [address] [place] [address] Care Team Providers Care Queen Producer Name Role Phone Unavailable Primary Care Provider Unavailabl e Social History Tobacco Use Types Packs/Day Years Used Date Smoking Tobacco: Never Assessed Comments Unknown Sex and Gender Information Value Date Recorded Sex Assigned at Female 02/07/2022 10:23 AM EDT Legal Sex Female 10:23 AM EDT Gender Identity Female 02/07/2022 10:23 AM EDT Sexual Orientation Straight 02/07/2022 10 :23 AM EDT Plan of Treatment Health Maintenance Due Date Last Done Comments CT Colonography 1963 Colonoscopy 1963 Colorectal Cancer Screening 1963 Depression Screening 1963 FIT DNA/Cologuard 1963 FIT 1963 FOBT 1963 Sigmoidoscopy 1963 Alcohol/Substance Use Screening 1975 Tobacco Screening 1975 DTaP/Tdap/Td Vaccines (1 - Tdap) 1982 Pap Smear 1984 Cervical Cancer Screening 1993 HPV/Cotest 1993 Mammogram 2003 Pneumococcal Vaccine: 50+ Ye ars (1 of 1 - PCV) 2013 Zoster Vaccines (1 of 2) 2013 COVID-19 Vaccine ( - 2023-2 5 season) 2023 Influenza Vaccine (#1) 2023 RSV Patients and Pa tients Aged 60 years or older (1 - 1-dose 75+ series) 2038 HIB Vaccines Aged Out No longer eligi ble based on patient's age to complete this topic HPV Vaccines Aged Out No longer eligi ble based on patient's age to complete this topic Hepatitis A Vaccines Aged Out No long er eligible based on patient's age to complete this topic Hepatitis B Vaccines Aged Out No long er eligible based on patient's age to complete this topic IPV Vaccines Aged Out No longer eligi ble based on patient's age to complete this topic Meningococcal Vaccine Aged Out No rachel claudette eligible based on patient's age to complete this topic Pneumococcal Vaccine: Pediat rics (0 to 5 Years) and At-Risk Patients (6 to 49) Years) Aged Out No longer eligible b ased on patient's age to complete this topic RSV under 20 months Aged Out No longe r eligible based on patient's age to complete this topic Rotavirus Vaccines Aged Out No longer eligible based on patient's age to complete this topic
--- OUTSIDE RECORDS SUMMARY | 2024-05-10 14:53 | XMS_ITS | Encounter Summary ---
Author Organization [employer] Address [address] [place] [address] [place] [address] Care Team Providers Care Performance Improvement Manager Name Role Phone Unavailable Primary Care Provider Unavailabl e Encounter Details Date Type Department Care Team (Latest Contact Info) Description 08/27/2020 Abstract [facility] CONVERSIONS Dental, Provider, DDS Social History Tobacco [...]
[2024-05-10 14:56] VITALS: BP 114/78; PULSE 83; O2SAT 97
--- NOTE | 2024-05-10 14:56 | MHC.PC.OV ---
Vital Signs 05/10/24 14:56 Weight 148 lb BP 114/78 Blood Pressure Location Rt brachial Position Sitting Pulse 83 Pulse Source Pulse Oximeter Pulse Oximetry (%) 97 Oxygen Delivery Method Room Air Intake Visit Reasons: left shoulder pain Allergies diphenhydramine [From BENADRYL] Allergy (Intermediate, Verified 02/16/24 10:02) LETHARGY ibuprofen [IBUPROFEN] Allergy (Intermediate, Verified 02/16/24 10:02) CHEST PAIN, Acute stomach and itchy iopromide [From Ultravist] Allergy (Mild, Verified 02/16/24 10:02) THROAT TIGHTNESS FOOD COLORING Allergy (Mild, Uncoded 02/16/24 10:02) SORE THROAT/ITCHINESS Lactulose Adverse Reaction (Intermediate, Uncoded 02/16/24 10:02) hives Medication List - Last Reconciled 05/10/24 by Isaiah Rosales MD blood sugar diagnostic (FreeStyle Lite Strips) patient to check fasting glucose once daily blood-glucose meter (FreeStyle Lite Meter kit) patient to check fasting glucose once daily cholecalciferol (vitamin D3) 25 mcg PO DAILY glipizide ER 2.5 mg PO DAILY 90 days lancets (FreeStyle Lancets) patient to check fasting glucose once daily [left hand wrist splint As directed] Tobacco use date assessed: 10/26/23 Dental Screening Dental Screen Date: 10/26/23 HPI left shoulder pain HPI Details - The patient is a 59-year-old female presenting with left shoulder and arm pain due to a muscle strain and follow-up on diabetes - Reports progressive left shoulder pain since March after initially thinking it was due to poor sleeping posture. - Pain is noted from the trapezius muscle in the upper back down to the left arm, aggravated by lifting and physical exertion. - Uses acetaminophen for pain relief due to NSAID allergy, specifically to ibuprofen. - Manages Type 2 Diabetes, with a recent A1c level measuring at 6.8%, no longer using Glypizide due to hypoglycemia episodes. - complaining of recurrent nasal bleed without any other symptoms mild, most likely due to dryness and heat would recommend using humidifier Problem List - Trapezius Muscle Strain - nosebleed - Type 2 Diabetes Mellitus Patient Instructions - Attend physical therapy as suggested to alleviate shoulder and arm pain. - Begin taking prescribed prednisone tablets as directed: one tablet with breakfast for five days., we will book a telemedicine visit to follow up on that once finished with prednisone - Avoid strenuous activities involving the left arm to prevent aggravation. - Use a humidifier to alleviate nasal dryness and prevent further nasal bleeding. - Monitor blood glucose levels regularly and maintain a diabetes-friendly diet. - Next visit is scheduled for a full physical examination in September. Review of Systems - General: No fever no chills - Neurological: No headaches no dizziness - Ear nose throat: No sore throat no hearing difficulty no ear pain - Cardiovascular: No syncope, no chest pain, no palpitations - Gastrointestinal: No nausea vomiting or diarrhea - Endocrine: No polyuria polydipsia no heat intolerance - Genitourinary: No dysuria , no blood in urine Physical Exam General: No acute distress HEENT: No acute findings Neck: Supple, slight pain when looking up Respiratory system: Able to talk in full sentences, no audible wheeze cardiovascular: S1-S2 regular in rate and rhythm Gastrointestinal: No pain Extremities: Pain in left shoulder and upper back extending to left arm, limited to 90 degrees , tender over trapezius muscle left side with palpation [employer]: Alert awake oriented x3 motor sensory intact Skin: Normal turgor [facility] Medical History Breast cyst Tubular adenoma of colon Constipation by delayed colonic transit GERD (gastroesophageal reflux disease) Surgical History History of ankle surgery History of cataract extraction H/O colonoscopy Family History Sister High cholesterol Mother No problems noted. Father No problems noted. Social History Household Members: Children Housing: House Alcohol intake: never Patient Tobacco Use Status: Never used Tobacco e-Cigarette/Vaping Use: Never Used service: No Current occupational status: employed Cognitive needs: No Hearing needs: No Vision needs: No Questionnaire PHQ-9 Over the last 2 weeks, how often have you been bothered by any of the following problems? 1. Little interest or pleasure in doing things: not at all 2. Feeling down, depressed, or hopeless: not at all 3. Trouble falling or staying asleep, or sleeping too much: not at all 4. Feeling tired or having little energy: not at all 5. Poor appetite or overeating: not at all 6. Feeling bad about yourself - or that you are a failure or have let yourself or your family down: not at all 7. Trouble concentrating on things, such as reading the newspaper or watching television: not at all 8. Moving or speaking so slowly that other people could have noticed. Or the opposite - being so fidgety or restless that you have been moving around a lot more than usual: not at all 9. Thoughts that you would be better off or of hurting yourself in some way: not at all Total score: 0 Depression Screening Interpretation: Negative Depression Screening Done: Yes 85998 - PHQ-9 Billing: Patient declined-do not bill Source: Developed by Drs. Freddy Fisher, Paola Tariq, Colton Ordoñez and colleagues, with an educational esthela from [employer]. Thrive Questionnaire Date Thrive assessed: 05/07/24 I am a: Patient What is your living situation today?: I have a steady place to live Within the past 12 months, did the food you bought not last and you didn't have the money to get more?: Sometimes True Within the past 12 months, did you worry whether your food would run out before you got money to buy more?: Sometimes True Do you have trouble paying for medicines?: No Do you have trouble getting transportation to medical appointments?: Yes Do you have trouble paying your heating and electricity bill?: Yes Do you have trouble taking care of your child, family member or friend?: No Do you have trouble with day-to-day activities such as bathing, preparing meals, shopping, managing finances, etc.?: No Are you currently unemployed and looking for a job?: No Are you interested in more education?: Yes Please select the resources that you would like help with: Utilities Currently or been in a relationship where the following occur: I choose not to answer THRIVE Score: 4 AUDIT C Alcohol Use Questionnaire (AUDIT-C) 1. How often do you have a drink containing alcohol?: Never Total Score: 0 BIANCA-7 AMB Questionnaire BIANCA-7 Date BIANCA - 7 assessed: 09/22/23 Feeling nervous, anxious, or on edge: 0 = Not at all Not being able to stop or control worryin = Not at all Worrying too much about different things: 1 = Several days Trouble relaxin = Several days Being so restless that it is hard to sit still: 0 = Not at all Becoming easily annoyed or irritable: 0 = Not at all Feeling afraid as if something awful might happen: 0 = Not at all Total BIANCA-7 score (0-4 normal; 5-9 mild; 10-14 moderate; 15-21 severe): 2 Source: Developed by Drs. Freddy Fisher, Paola Tariq, Colton Ordoñez and colleagues, with an educational esthela from [employer]. BIANCA-7 Assessment Billing BIANCA-7 Assessment Tool: BIANCA-7 Assessment 16937 Physical exam (Primary Care) Vital Signs: Last Vital Signs Pulse 83 05/10/24 14:56 BP 114/78 05/10/24 14:56 Pulse Ox 97 05/10/24 14:56 Oxygen Delivery Method Room Air 05/10/24 14:56 Tobacco/Smoking Status: Tobacco use Status Tobacco use date assessed 10/26/23 10/26/23 08:23 Patient Tobacco Use Status Never used Tobacco 02/16/24 09:58 e-Cigarette/Vaping Use Never Used 10/26/23 08:23 Depression Screening Interpretation: Negative Thrive Assessment: Date of Thrive Assessment Date Thrive assessed 05/07/24 05/07/24 12:21 Currently or been in a relationship where the following occur: I choose not to answer Coding Level of Care Code Est Pt Level 3 (31372) Diagnoses Strain of left trapezius muscle, initial encounter S46.812A Encounter type: initial encounter Laterality: left Type 2 diabetes mellitus with other specified complication, without long-term current use of insulin E11.69 Diabetes mellitus type: type 2 Diabetes mellitus senior care insulin use: without senior care use Diabetes mellitus complication status: with other specified complication Nosebleed R04.0 Additional Codes BIANCA-7 Assessment Billing - BIANCA-7 Assessment Tool: BIANCA-7 Assessment 92931 ([id number]) Assessment & Plan Assessment & Plan (1) Trapezius muscle strain: Code(s): S46.819A - Strain of other muscles, fascia and tendons at shoulder and upper arm level, unspecified arm, initial encounter Category: Medical Qualifiers: Encounter type: initial encounter Laterality: left Qualified Code(s): S46.812A - Strain of other muscles, fascia and tendons at shoulder and upper arm level, left arm, initial encounter (2) Diabetes mellitus: Code(s): E11.9 - Type 2 diabetes mellitus without complications Category: Medical Qualifiers: Diabetes mellitus type: type 2 Diabetes mellitus terminal worker insulin use: without terminal worker use Diabetes mellitus complication status: with other specified complication Qualified Code(s): E11.69 - Type 2 diabetes mellitus with other specified complication (3) Nosebleed: Code(s): R04.0 - Epistaxis Category: Medical Plan - The patient is a 59-year-old female presenting with left shoulder and arm pain due to a muscle strain and follow-up on diabetes - Reports progressive left shoulder pain since March after initially thinking it was due to poor sleeping posture. - Pain is noted from the trapezius muscle in the upper back down to the left arm, aggravated by lifting and physical exertion. - Uses acetaminophen for pain relief due to NSAID allergy, specifically to ibuprofen. - Manages Type 2 Diabetes, with a recent A1c level measuring at 6.8%, no longer using Glypizide due to hypoglycemia episodes. - complaining of recurrent nasal bleed without any other symptoms mild, most likely due to dryness and heat would recommend using humidifier Problem List - Trapezius Muscle Strain - nosebleed - Type 2 Diabetes Mellitus Patient Instructions - Attend physical therapy as suggested to alleviate shoulder and arm pain. - Begin taking prescribed prednisone tablets as directed: one tablet with breakfast for five days., we will book a telemedicine visit to follow up on that once finished with prednisone - Avoid strenuous activities involving the left arm to prevent aggravation. - Use a humidifier to alleviate nasal dryness and prevent further nasal bleeding. - Monitor blood glucose levels regularly and maintain a diabetes-friendly diet. - Next visit is scheduled for a full physical examination in September. Orders: Orders PT Evaluation and Treatment Today S46.819A - Strain of other muscles, fascia and tendons at shoulder and upper arm level, unspecified arm, initial encounter Medications: New prednisone 10 mg PO DAILY 5 days 5 tabs 0RF Discontinued meclizine Discontinued Reason: Doctor's Order 25 mg PO TID 10 days PRN 30 tabs 0RF dizziness benzonatate Discontinued Reason: Doctor's Order 100 mg PO TID PRN 20 caps 0RF cough On Hold glipizide ER Hold Comment: Doctor's Order 2.5 mg PO DAILY 90 days 90 tabs 0RF E11.9 - Type 2 diabetes mellitus without complications
== END 2024-05-10 15:14 | disposition home or self-care (01) ==
PROVIDERS: PCP Internal Medicine; Visit Provider Internal Medicine
DX: S46.812A Strain of other muscles, fascia and tendons at shoulder and upper arm level, left arm, initial encounter (principal); E11.69 Type 2 diabetes mellitus with other specified complication; R04.0 Epistaxis

== ENCOUNTER → 2024-05-10 14:50 | Outpatient (BNVA) | payer OTHER, SELFPAY | PROVIDERS: PCP Internal Medicine; Visit Provider Internal Medicine | DX: S46.812A Strain of other muscles, fascia and tendons at shoulder and upper arm level, left arm, initial encounter (principal); E11.69 Type 2 diabetes mellitus with other specified complication; R04.0 Epistaxis | CPT/HCPCS: 83036; 96127 ==

== ENCOUNTER 2024-05-16 08:05 | Outpatient (AMB) | payer OTHER, SELFPAY ==
--- OUTSIDE RECORDS SUMMARY | 2024-05-16 08:06 | XMS_ITS | Clinical Summary ---
Author Organization [facility] [employer] Address [address] [place] [address] 7 [place] [address] Care Team Providers Care Personal Chef Name Role Phone Unavailable Primary Care Provider [...]
--- OUTSIDE RECORDS SUMMARY | 2024-05-16 08:06 | XMS_ITS | Encounter Summary ---
Author Organization [employer] Address [address] [place] [address] [place] [address] Care Team Providers Care Retail Consultant Name Role Phone Unavailable Primary Care Provider Unavailabl e Encounter Details Date Type Department Care Team (Latest Contact Info) Description 01/22/2019 Abstract [facility] CONVERSIONS Dental, Provider, DDS Social History [...]
--- OUTSIDE RECORDS SUMMARY | 2024-05-16 08:06 | XMS_ITS | Encounter Summary ---
Author Organization [employer] Address [address] [place] [address] [place] [address] Care Team Providers Care Chief Design Branch Name Role Phone Unavailable Primary Care Provider Unavailabl e Encounter Details Date Type Department Care Team (Latest Contact Info) Description 08/27/2020 Abstract [facility] CONVERSIONS Dental, Provider, DDS Social History Tobacco [...]
--- NOTE | 2024-05-16 08:30 | A.OFFPC_ITS ---
Intake Visit Reasons: TV follow up Allergies diphenhydramine [From BENADRYL] Allergy (Intermediate, Verified 05/16/24 08:30) LETHARGY ibuprofen [IBUPROFEN] Allergy (Intermediate, Verified 05/16/24 08:30) CHEST PAIN, Acute stomach and itchy iopromide [From Ultravist] Allergy (Mild, Verified 05/16/24 08:30) THROAT TIGHTNESS FOOD COLORING Allergy (Mild, Uncoded 02/16/24 10:02) SORE THROAT/ITCHINESS Lactulose Adverse Reaction (Intermediate, Uncoded 02/16/24 10:02) hives Medication List - Last Reconciled 05/16/24 by Isaiah Rosales MD blood sugar diagnostic (FreeStyle Lite Strips) patient to check fasting glucose once daily blood-glucose meter (FreeStyle Lite Meter kit) patient to check fasting glucose once daily cholecalciferol (vitamin D3) 25 mcg PO DAILY glipizide ER 2.5 mg PO DAILY 90 days lancets (FreeStyle Lancets) patient to check fasting glucose once daily [left hand wrist splint As directed] Tobacco use date assessed: 05/16/24 Dental Screening Dental Screen Date: 05/16/24 Did you have a dental visit in the last 12 months?: Yes Did you have a dental problem in the last 6 months where you did not have access to dental care?: No Was dental information given to patient?: Patient has dentist HPI TV follow up HPI Details History - The patient is a 59-year-old female pr esenting with follow-up concerns regarding diabetes management and left upper back musculoskeletal pain. - Her Hemoglobin A1c increased from 5.9 in October to 6.8. She does not currently take Glipizide but monitors blood sugars which were 104 mg/dL on the visit morning. - She reported reduction in musculoskele homa pain and sought physical therapy, we will mail her the order as she would like to go to PT department close to her home. - The patient prefers physical therapy i [facility] location. Problem List - Diabetes Mellitus Type 2 - Musculoskeletal Pain/ trapizius strain Patient Instructions - Start physical therapy when possible a nd consider facilities in [place]. - Continue monitoring blood glucose leve ls regularly. - Initiate Glipizide if blood sugar read ings consistently rise to 150 mg/dL or above and notify the clinic. - Fasting blood tests to be completed be fore the next scheduled physical examination in September. Review of Systems - General: No fever no chills - Neurological: No headaches no dizziness - Ear nose throat: No sore throat no hearing difficulty no ear pain - Cardiovascular: No syncope, no chest pain, no palpitations - Gastrointestinal: No nausea vomiting or diarrhea - Endocrine: No polyuria polydipsia no heat intolerance - Genitourinary: No dysuria , no blood in urine [facility] Medical History Breast cyst Tubular adenoma of colon Constipation by delayed colonic transit GERD (gastroesophageal reflux disease) Surgical History History of ankle surgery History of cataract extraction H/O colonoscopy Family History Sister High cholesterol Mother No problems noted. Father No problems noted. Social History Household Members: Children Housing: House Alcohol intake: never Patient Tobacco Use Status: Never used Tobacco e-Cigarette/Vaping Use: Never Used service: No Current occupational status: employed Cognitive needs: No Hearing needs: No Vision needs: No Questionnaire Thrive Questionnaire Date Thrive assessed: 05/07/24 AUDIT C Alcohol Use Questionnaire (AUDIT-C) 1. How often do you have a drink containing alcohol?: Never 3. How often do you have six or more drinks on one occasion?: Never Total Score: 0 Score Reviewed/Action Taken: Yes BIANCA-7 AMB Questionnaire BIANCA-7 Date BIANCA - 7 assessed: 09/22/23 Source: Developed by Drs. Freddy Fisher, Paola Tariq, Colton Ordoñez and colleagues, with an educational esthela from [employer]. Physical exam (Primary Care) Tobacco/Smoking Status: Tobacco use Status Tobacco use date assessed 05/16/24 05/16/24 08:31 Patient Tobacco Use Status Never used Tobacco 05/16/24 08:31 e-Cigarette/Vaping Use Never Used 05/16/24 08:31 Thrive Assessment: Date of Thrive Assessment Date Thrive assessed 05/07/24 05/16/24 08:31 Telehealth Telehealth Telehealth Platform: [facility] Location of provider rendering services: practice address Location of patient: address on file Patient Identification confirmed using: Name, : Yes Telehealth method: video (attempted) Patient verbally consented to treatment: Yes Patient verbally consented to billing insurance company: Yes Patient informed of any privacy concerns related to visit: Yes Minutes spent on Phone/Video with Pt.: 13 Coding Level of Care Code Tele Est Pt Level 3 (69487) Diagnoses Type 2 diabetes mellitus with other specified complication, without long-term current use of insulin E11.69 Diabetes mellitus complication status: with other specified complication Diabetes mellitus halfway insulin use: without terminal worker use Diabetes mellitus type: type 2 Lipid disorder E78.9 Gastroesophageal reflux disease without esophagitis K21.9 Esophagitis presence: without esophagitis Assessment & Plan Assessment & Plan (1) Diabetes mellitus: Code(s): E11.9 - Type 2 diabetes mellitus without complications Category: Medical Qualifiers: Diabetes mellitus complication status: with other specified complication Diabetes mellitus terminal worker insulin use: without terminal worker use Diabetes mellitus type: type 2 Qualified Code(s): E11.69 - Type 2 diabetes mellitus with other specified complication (2) Lipid disorder: Code(s): E78.9 - Disorder of lipoprotein metabolism, unspecified Category: Medical (3) GERD (gastroesophageal reflux disease): Code(s): K21.9 - Gastro-esophageal reflux disease without esophagitis Category: Medical Qualifiers: Esophagitis presence: without esophagitis Qualified Code(s): K21.9 - Gastro-esophageal reflux disease without esophagitis Plan History - The patient is a 59-year-old female with Hx of DM, and Lipid disorder, GERD [ table off meds ]presenting with follow-up concerns regarding diabetes management and left upper back musculoskeletal pain. - Her Hemoglobin A1c increased from 5.9 in October to 6.8. She does not currently take Glipizide but monitors blood sugars which were 104 mg/dL on the visit morning. - She reported reduction in musculoskeletal pain and sought physical therapy, we will mail her the order as she would like to go to PT department close to her home. - The patient prefers physical therapy in [place] location. Problem List - Diabetes Mellitus Type 2 - Musculoskeletal Pain/ trapizius strain Patient Instructions - Start physical therapy when possible and consider facilities in [place]. - Continue monitoring blood glucose levels regularly. - Initiate Glipizide if blood sugar readings consistently rise to 150 mg/dL or above and notify the clinic. - Fasting blood tests to be completed before the next scheduled physical examination in September. she has PE apt in September, labs are needed fasting before visit, order placed Orders: Orders Hemoglobin A1c 4 Months - Type 2 diabetes mellitus with other specified complication, E78.9 - Disorder of lipoprotein metabolism, unspecified, K21.9 - Gastro-esophageal reflux disease without esophagitis Complete Blood Count Auto Diff 4 Months . - Type 2 diabetes mellitus with other specified complication, E78.9 - Disorder of lipoprotein metabolism, unspecified, K21.9 - Gastro-esophageal reflux disease without esophagitis Comprehensive [place]. Panel Fast 4 Months . - Type 2 diabetes mellitus with other specified complication, E78.9 - Disorder of lipoprotein metabolism, unspecified, K21.9 - Gastro-esophageal reflux disease without esophagitis Lipid Panel 4 Months . - Type 2 diabetes mellitus with other specified complication, E78.9 - Disorder of lipoprotein metabolism, unspecified, K21.9 - Gastro-esophageal reflux disease without esophagitis Microalbumin, Random (w Creat) 4 Months . - Type 2 diabetes mellitus with other specified complication, E78.9 - Disorder of lipoprotein metabolism, unspecified, K21.9 - Gastro-esophageal reflux disease without esophagitis
== END 2024-05-16 09:11 | disposition home or self-care (01) ==
LOC: HO.HMCC 08:05
PROVIDERS: PCP Internal Medicine; Visit Provider Internal Medicine
DX: E11.69 Type 2 diabetes mellitus with other specified complication (principal); E78.9 Disorder of lipoprotein metabolism, unspecified; K21.9 Gastro-esophageal reflux disease without esophagitis

== ENCOUNTER 2024-09-25 14:22 | Outpatient (AMB) | payer OTHER, MEDICAID, SELFPAY ==
[2024-09-25 14:26] VITALS: BP 116/82; PULSE 82; TEMP 36.9; O2SAT 97; BMI 23.8
--- NOTE | 2024-09-25 14:26 | A.OFFPC_ITS ---
Vital Signs 09/25/24 14:26 Height 5 ft 5 in Weight 143 lb BMI 23.8 BP 116/82 Blood Pressure Location Lt brachial Position Sitting Pulse 82 Pulse Source Pulse Oximeter Temp 98.4 F Temp Source Oral Pulse Oximetry (%) 97 Oxygen Delivery Method Room Air Intake Visit Reasons: PE [employer] Architect Required: No Allergies diphenhydramine (From BENADRYL) Allergy (Intermediate, Verified 09/25/24 14:33) LETHARGY ibuprofen (IBUPROFEN) Allergy (Intermediate, Verified 09/25/24 14:33) CHEST PAIN, Acute stomach and itchy iopromide (From Ultravist) Allergy (Mild, Verified 09/25/24 14:33) THROAT TIGHTNESS FOOD COLORING Allergy (Mild, Uncoded 02/16/24 10:02) SORE THROAT/ITCHINESS Lactulose Adverse Reaction (Intermediate, Uncoded 02/16/24 10:02) hives Medication List - Last Reconciled 09/25/24 by Isaiah Rosales MD blood sugar diagnostic (FreeStyle Lite Strips) patient to check fasting glucose once daily blood-glucose meter (FreeStyle Lite Meter kit) patient to check fasting glucose once daily cholecalciferol (vitamin D3) 25 mcg PO DAILY lancets (FreeStyle Lancets) patient to check fasting glucose once daily [left hand wrist splint As directed] Tobacco use date assessed: 05/16/24 Dental Screening Dental Screen Date: 05/16/24 Did you have a dental visit in the last 12 months?: Yes Did you have a dental problem in the last 6 months where you did not have access to dental care?: No Was dental information given to patient?: Patient has dentist HPI PE HPI Details Physical exam - The patient is a 59-year-old female pr esenting for a wellness visit . - History of shoulder pain, specifically in the left shoulder, reported as improved recently, leading to decreased necessity for physical therapy. - History of colonoscopy is questionable , I have sent message to gastroenterolo gy office regarding that Patient is diet-controlled diabetic Last time she had hemoglobin A1c in April it was 6.8 She was supposed to have labs done before this visit but she did not, she is fas ting and have them done today. Tetanus vaccine is due Health Maintenance - Mammogram last performed in January of the previous year. - OPTION TRADER visit conducted in February of the previous year at [facility] with Dr. Wesley Garland. - Colorectal cancer screening to be inve stigated - Last tetanus vaccine taken in 2012, du e for the next one. [place] [facility] - Dr. Wesley Garland (OPTION TRADER) - Dr. Sarah Saenz & Dr. Nickerson (Gastroent erologist) Patient Instructions - take tetanus vaccine today. - Go for your blood test today since you 're fasting. - Keep monitoring your Hemoglobin A1c, n o medication required if it remains in the 6 range. - Return in four months for A1c and one- year physical exam. Review of Systems - General: No fever no chills - Neurological: No headaches no dizzin ess - Ear nose throat: No sore throat no hearing difficulty no ear pain - Cardiovascular: No syncope, no chest pain, no palpitations - Gastrointestinal: No nausea vomiting or diarrhea - Endocrine: No polyuria polydipsia no heat intolerance - Genitourinary: No dysuria - Skin: No new complaints Physical Exam General: Cooperative, healthy appearing, comfortable, no acute distress Orientation: Patient oriented x3 Limitations: None Head: Normal to inspection Ears: Within normal limit visually Nose: Normal external nose present Face and sinus: Normal facial exam Eyes: Appearance normal, extraocular movement intact pupils reactive Neck: Normal visual inspection and supple Respiratory: Normal respiratory effort and able to speak in complete sentences. Clear to auscultation, no stridor Cardiovascular: S1 and S2 RRR Breast exam through OBGYN GI: Normal to inspection. Soft to palpation and nontender Skin: Turgor normal, no acute findings, no swelling noted, occasional armpit swelling but nothing major Neuro: Patient oriented x3, motor sensory intact, balance intact, tandem pass Extremities: Normal to inspection, full range of motion [facility] Medical History Breast cyst Tubular adenoma of colon Constipation by delayed colonic transit GERD (gastroesophageal reflux disease) Surgical History History of ankle surgery History of cataract extraction H/O colonoscopy Family History Sister High cholesterol Mother No problems noted. Father No problems noted. Social History Household Members: Children Housing: House Alcohol intake: never Patient Tobacco Use Status: Never used Tobacco e-Cigarette/Vaping Use: Never Used service: No Current occupational status: employed Cognitive needs: No Hearing needs: No Vision needs: No Questionnaire PHQ-9 Over the last 2 weeks, how often have you been bothered by any of the following problems? 1. Little interest or pleasure in doing things: not at all 2. Feeling down, depressed, or hopeless: not at all 3. Trouble falling or staying asleep, or sleeping too much: not at all 4. Feeling tired or having little energy: not at all 5. Poor appetite or overeating: not at all 6. Feeling bad about yourself - or that you are a failure or have let yourself or your family down: not at all 7. Trouble concentrating on things, such as reading the newspaper or watching television: not at all 8. Moving or speaking so slowly that other people could have noticed. Or the opposite - being so fidgety or restless that you have been moving around a lot more than usual: not at all 9. Thoughts that you would be better off or of hurting yourself in some way: not at all Total score: 0 Depression Screening Interpretation: Negative Depression Screening Done: Yes 10523 - PHQ-9 Billing: Patient declined-do not bill Source: Developed by Drs. Freddy Fisher, Paola Tariq, Colton Ordoñez and colleagues, with an educational esthela from [employer]. Thrive Questionnaire Date Thrive assessed: 05/07/24 I am a: Patient What is your living situation today?: I have a steady place to live Within the past 12 months, did the food you bought not last and you didn't have the money to get more?: Sometimes True Within the past 12 months, did you worry whether your food would run out before you got money to buy more?: Sometimes True Do you have trouble paying for medicines?: No Do you have trouble getting transportation to medical appointments?: Yes Do you have trouble paying your heating and electricity bill?: Yes Do you have trouble taking care of your child, family member or friend?: No Do you have trouble with day-to-day activities such as bathing, preparing meals, shopping, managing finances, etc.?: No Are you currently unemployed and looking for a job?: No Are you interested in more education?: Yes Please select the resources that you would like help with: Utilities Currently or been in a relationship where the following occur: I choose not to answer THRIVE Score: 4 BIANCA-7 AMB Questionnaire BIANCA-7 Date BIANCA - 7 assessed: 09/22/23 Source: Developed by Drs. Freddy Fisher, Paola Tariq, Colton Ordoñez and colleagues, with an educational esthela from [employer]. Physical exam (Primary Care) Vital Signs: Last Vital Signs Temp 98.4 F 09/25/24 14:26 Pulse 82 09/25/24 14:26 BP 116/82 09/25/24 14:26 Pulse Ox 97 09/25/24 14:26 Oxygen Delivery Method Room Air 09/25/24 14:26 BMI result Body Mass Index 23.8 Tobacco/Smoking Status: Tobacco use Status Tobacco use date assessed 05/16/24 09/25/24 14:35 Patient Tobacco Use Status Never used Tobacco 09/25/24 14:35 e-Cigarette/Vaping Use Never Used 09/25/24 14:35 PHQ-9: PHQ-9 Score PHQ-9: Total score 0 09/25/24 15:02 Depression Screening Interpretation: Negative Thrive Assessment: Date of Thrive Assessment Date Thrive assessed 05/07/24 09/25/24 14:35 Currently or been in a relationship where the following occur: I choose not to answer Immunizations Boostrix Tdap 2.5 Lf unit-8 mcg-5 Lf/0.5 mL intramuscular syringe Performing Provider: Isaiah Rosales MD Performing Location: [facility] Administered by: FAIZA Villalpando on 09/25/24 15:01 Dose Route Admin Location Dispensed Lot Number Expiration Date [facility] Slurry Man 0.5 mL IM Left Deltoid 0.5 mL [id number] 12/07/26 [id number] [place] Total Dispensed Waste 0.5 mL 0 % VIS Given Date VIS Provided VIS Publication Date 09/25/24 Single Vaccine 20 Eligibility Eligibility Date Funding Source Not [facility] Eligible 09/25/24 Private Coding Level of Care Code Est Pt Prev Care 40-64y(85684) Diagnoses Adult general medical exam Z00.00 Type 2 diabetes mellitus with other specified complication, without long-term current use of insulin E11.69 Diabetes mellitus complication status: with other specified complication Diabetes mellitus custodial insulin use: without custodial use Diabetes mellitus type: type 2 Vitamin D deficiency E55.9 Assessment & Plan Assessment & Plan (1) Adult general medical exam: Code(s): Z00.00 - Encounter for general adult medical examination without abnormal findings Category: Medical (2) Diabetes mellitus: Code(s): E11.9 - Type 2 diabetes mellitus without complications Category: Medical Qualifiers: Diabetes mellitus complication status: with other specified complication Diabetes mellitus adjunct faculty for medical terminology insulin use: without adjunct faculty for medical terminology use Diabetes mellitus type: type 2 Qualified Code(s): E11.69 - Type 2 diabetes mellitus with other specified complication (3) Vitamin D deficiency: Code(s): E55.9 - Vitamin D deficiency, unspecified Category: Medical Plan Physical exam - The patient is a 59-year-old female presenting for a wellness visit . - History of shoulder pain, specifically in the left shoulder, reported as improved recently, leading to decreased necessity for physical therapy. - History of colonoscopy is questionable, I have sent message to gastroenterology office regarding that Patient is diet-controlled diabetic Last time she had hemoglobin A1c in April it was 6.8 She was supposed to have labs done before this visit but she did not, she is fasting and have them done today. Tetanus vaccine is due Health Maintenance - Mammogram last performed in January of the previous year. - OPTION TRADER visit conducted in February of the previous year at [facility] with Dr. Wesley Garland. - Colorectal cancer screening to be investigated - Last tetanus vaccine taken in 2012, due for the next one. [place] [facility] - Dr. Wesley Garland (OPTION TRADER) - Dr. Sarah Saenz & Dr. Nickerson ([facility] Warm Up) Patient Instructions - take tetanus vaccine today. - Go for your blood test today since you're fasting. - Keep monitoring your Hemoglobin A1c, no medication required if it remains in the 6 range. - Return in four months for A1c and one-year physical exam. Orders: Orders TDaP Immunization Today Z23 - Encounter for immunization
--- OUTSIDE RECORDS SUMMARY | 2024-09-25 16:31 | XMS_ITS | Encounter Summary ---
Author Organization [employer] Address [address] [place] [address] Care Team Providers Care Die Trouble Shooter Name Role Phone Unavailable Primary Care Provider Unavailabl e Encounter Details Date Type Department Care Team (Latest Contact Info) Description 01/22/2019 Abstract [facility] CONVERSIONS Dental, Provider, DDS Social History Tobacco [...]
== END 2024-09-25 15:05 | disposition home or self-care (01) ==
LOC: HO.HMCC 14:23
PROVIDERS: PCP Internal Medicine; Visit Provider Internal Medicine
DX: Z00.00 Encounter for general adult medical examination without abnormal findings (principal); E11.69 Type 2 diabetes mellitus with other specified complication; E55.9 Vitamin D deficiency, unspecified; Z23 Encounter for immunization

== ENCOUNTER 2024-09-25 15:06 | Outpatient (REF) | payer OTHER, SELFPAY ==
[2024-09-25 16:15] LABS: MANUAL DIFF FLAG NO
[2024-09-25 16:21] LABS: Eosinophils Absolute Auto 0.1 X10*3/uL (0.0-0.4); Eosinophils Percent Auto 1.7 % (0-4); Hematocrit 37.5 % (37.0-47.0); Hemoglobin 12.9 g/dl (12.0-16.0); Imm Gran Abs Auto 0.01 X10*3/uL (0.00-0.03); Imm Gran Pct Auto 0.2 % (0.0-0.4); Lymphocytes Absolute Auto 1.9 X10*3/uL (1.2-4.9); Lymphocytes Percent Auto 44.3 % (20-40); Mean Corpuscular HGB Conc 34.4 g/dl (31.0-35.0); Mean Corpuscular Volume 90.1 fL (80.0-98.0); Mean Platelet Volume 9.9 fL (9.4-12.3); Monocytes Absolute Auto 0.2 X10*3/uL (0.1-1.2); Monocytes Percent Auto 5.7 % (2-11); Neutrophils Percent Auto 47.1 % (45-73); Platelet Count 296 X10*3/uL (160-400); Red Blood Count 4.16 X10*6/uL (4.20-5.50); Red Cell Distribution Width 11.9 % (11.0-16.0); White Blood Count 4.2 X10*3/uL (4.8-10.8)
[2024-09-25 16:36] LABS: Estimated Average Glucose 134 mg/dL; Hemoglobin A1c % 6.3 % (<6.0); Total Hemoglobin (HGBA1C) 3453.7982 umol/L
[2024-09-25 16:59] LABS: Microalbum/Creatinine Ratio Ur 4.7 ug/mg cr (<30)
[2024-09-25 17:03] LABS: Alanine Aminotransferase 35 U/L (0-31); Albumin Level 4.4 g/dL (3.5-5.0); Alkaline Phosphatase 62 U/L (39-117); Anion Gap 10 (12-20); Aspartate Amino Transferase 27 U/L (5-31); Bilirubin Total 0.5 mg/dL (0.0-1.0); Blood Urea Nitrogen 14 mg/dL (9-16); Calcium 9.9 mg/dL (8.4-10.2); Carbon Dioxide 24 mmol/L (22-29); Chloride 111 mmol/L (96-108); Cholesterol 195 mg/dL (<200); Estimated Glomerular Filt Rate 56; Glucose Fasting 88 mg/dL (60-99); HDL Cholesterol 53 mg/dL (>40); LDL Cholesterol Calculated 130 mg/dL (<100); Potassium 3.8 mmol/L (3.3-5.1); Sodium 141 mmol/L (135-145); Total Protein 7.6 g/dL (6.5-8.0); Triglycerides 62 mg/dL (<150)
== END 2024-09-25 15:07 | disposition home or self-care (01) ==
LOC: HO.HMGCLDS 15:06
PROVIDERS: PCP Internal Medicine; Visit Provider Internal Medicine
DX: K21.9 Gastro-esophageal reflux disease without esophagitis (principal); E78.9 Disorder of lipoprotein metabolism, unspecified; E11.69 Type 2 diabetes mellitus with other specified complication; Z23 Encounter for immunization
CPT/HCPCS: 36415; 80053; 80061; 82043; 82570; 83036; 85025; 90471; 90715

== ENCOUNTER 2024-12-19 09:52 | Outpatient (REF) | payer OTHER, MEDICAID, SELFPAY ==
--- NOTE | ~2024-12-19 | XR_ITS ---
EXAMINATION: XR KNEE, LEFT CLINICAL INFORMATION: M25.562 - Pain in left knee COMPARISON: None available. TECHNIQUE: AP oblique and lateral views of the left knee. FINDINGS: No acute cortical disruption or malalignment. Asymmetric joint space narrowing involving the medial compartment. There is a 4 mm well-corticated calcific abnormality in the medial tibial plateau. Small areas of calcifications at the quadriceps tendon insertion. No suprapatellar bursa joint effusion. XR/XR knee LT 4V IMPRESSION: Mild medial compartment osteoarthrosis/osteoarthritis. Probable old traumatic, medial tibial plateau. Electronically signed by: Bharath Pérez MD 12/19/2024 11:00 AM EDT
== END 2024-12-19 09:53 | disposition home or self-care (01) ==
LOC: HO.HMGCX 09:52
PROVIDERS: PCP Internal Medicine; Visit Provider Nurse Practitioner Family
DX: M25.562 Pain in left knee (principal)
CPT/HCPCS: 73564

== ENCOUNTER 2024-12-19 09:52 | Outpatient (AMB) | payer OTHER, MEDICAID, SELFPAY ==
--- NOTE | 2024-12-19 10:00 | MHC.OFFWIV ---
Intake Vital Signs 12/19/24 10:01 Height 5 ft 5 in Weight 148 lb BMI 24.6 BP 106/70 Blood Pressure Location Lt brachial Position Sitting Pulse 94 Pulse Source Pulse Oximeter Temp 98.1 F Temp Source Oral Pulse Oximetry (%) 99 Oxygen Delivery Method Room Air Intake Visit Reasons: EP LT knee pain, lump Intake Note: pt presents with left knee pain with burning & painful lump- pain flare began 4 days ago Patient Tobacco Use Status: Never used Tobacco Allergies diphenhydramine (From BENADRYL) Allergy (Intermediate, Verified 12/19/24 10:03) LETHARGY ibuprofen (IBUPROFEN) Allergy (Intermediate, Verified 12/19/24 10:03) CHEST PAIN, Acute stomach and itchy iopromide (From Ultravist) Allergy (Mild, Verified 12/19/24 10:03) THROAT TIGHTNESS FOOD COLORING Allergy (Mild, Uncoded 02/16/24 10:02) SORE THROAT/ITCHINESS Lactulose Adverse Reaction (Intermediate, Uncoded 02/16/24 10:02) hives Medication List - Last Reconciled 12/19/24 by Rosemarie Phelan NP blood sugar diagnostic (FreeStyle Lite Strips) patient to check fasting glucose once daily blood-glucose meter (FreeStyle Lite Meter kit) patient to check fasting glucose once daily cholecalciferol (vitamin D3) 25 mcg PO DAILY lancets (FreeStyle Lancets) patient to check fasting glucose once daily [left hand wrist splint As directed] Do you need a note to return to daycare/school/sports/work: Yes HPI HPI Comments History of Present Illness Details 59 y/o Female patient who presents to the walk in clinic with c/o Left Knee Pain for 4 days. Reports pain with ROM; Bending and Walking. Denies injury or trauma to the Knee. She has not taken any OTC Pain medications. She has been using Ice/Heat and Knee Brace. [facility] Medical History (Updated 12/19/24 @ 10:17 by Rosemarie Phelan NP) Left anterior knee pain Breast cyst Tubular adenoma of colon Constipation by delayed colonic transit GERD (gastroesophageal reflux disease) Surgical History History of ankle surgery History of cataract extraction H/O colonoscopy Family History Sister High cholesterol Mother No problems noted. Father No problems noted. Social History Household Members: Children Housing: House Alcohol intake: never Patient Tobacco Use Status: Never used Tobacco e-Cigarette/Vaping Use: Never Used service: No Current occupational status: employed Cognitive needs: No Hearing needs: No Vision needs: No Review of Systems Const All systems reviewed & are unremarkable except as noted in HPI and below Physical Exam Vital Signs: Last Vital Signs Temp 98.1 F 12/19/24 10:01 Pulse 94 12/19/24 10:01 BP 106/70 12/19/24 10:01 Pulse Ox 99 12/19/24 10:01 Oxygen Delivery Method Room Air 12/19/24 10:01 BMI result Body Mass Index 24.6 Const General: no acute distress; No comfortable Nutritional Appearance: well nourished Orientation/consciousness: patient oriented x3 Neuro Other: Walks with Limp due to Pain on Left knee. General: patient oriented x3 and moves all extremities Extrem Right lower extremity: normal to inspection and full ROM Left lower extremity: knee Details: normal to inspection, tenderness Location: of the patella Details: medially and abnormal ROM Details: pain with active ROM and pain with passive ROM; no swelling, no crepitus and no deformity Psych Speech and movement: Normal speech and movement present Assessment & Plan Assessment & Plan (1) Left anterior knee pain: Code(s): M25.562 - Pain in left knee Plan: Ordered XRay Left Knee. Possibly Knee muscle Sprain/Strain, vs Knee OA vs Fx Acetaminophen for pain relief. Ice/Hot and Rest joint. Medications: New acetaminophen 1,000 mg (2 x 500 mg) PO Q6H PRN 30 caps 0RF pain M25.562 - Pain in left knee cyclobenzaprine 5 mg PO BID 10 tabs 0RF 5 days M25.562 - Pain in left knee prednisone 20 mg PO DAILY 7 tabs 0RF 7 days M25.562 - Pain in left knee Coding Level of Care Code Est Pt Level 4 (28771) Diagnoses Left anterior knee pain M25.562 Time Spent (min) 20
[2024-12-19 10:01] VITALS: BP 106/70; PULSE 94; TEMP 36.7; O2SAT 99; BMI 24.6
--- OUTSIDE RECORDS SUMMARY | 2024-12-19 11:41 | XMS_ITS | Clinical Summary ---
Author Organization [employer] Address [address] [place] [address] [address] [place] [address] Care Team Providers Care Geriatric Case Manager Name Role Phone Unavailable Primary Care [...] 1963 FIT 1963 FOBT 1963 Sigmoidoscopy 1963 Disability Screening 1963 Alcohol/Substance Use Screening 1975 Tobacco Screening 1975 DTaP/Tdap/Td Vaccines (1 - Tdap) 1982 Pap Smear 1984 Cervical Cancer Screening 1993 HPV/Cotest 1993 Mammogram 2003 Pneumococcal Vaccine: 50+ Ye ars (1 of 1 - PCV) 2013 Zoster Vaccines (1 of 2) 2013 COVID-19 Vaccine ( - 2023-2 5 season) 2024 Influenza Vaccine (#1) 2024 RSV Patients and Pa tients Aged 60 [...] patient's age to complete this topic Meningococcal B Vaccine Aged Out No l onger eligible based on patient's age to complete [...]
--- OUTSIDE RECORDS SUMMARY | 2024-12-19 11:41 | XMS_ITS | Encounter Summary ---
Author Organization [employer] [facility] Address [address] [place] [address] Care Team Providers Care Civil Litigation Attorney Name Role Phone Unavailable Primary Care Provider Unavailabl e Encounter Details Date Type Department Care Team (Latest Contact Info) Description 08/27/2020 Abstract [facility] CONVERSIONS Dental, Provider, DDS Social History [...]
--- OUTSIDE RECORDS SUMMARY | 2024-12-19 11:41 | XMS_ITS | Encounter Summary ---
Author Organization [employer] Address [address] [place] [address] Care Team Providers Care Office Support Specialist Name Role Phone Unavailable Primary Care Provider Unavailabl e Encounter Details Date Type Department Care Team (Latest Contact Info) Description 01/22/2019 Abstract [facility] CONVERSIONS Dental, Provider, DDS Social History [...]
== END 2024-12-19 10:34 | disposition home or self-care (01) ==
PROVIDERS: PCP Internal Medicine; Visit Provider Nurse Practitioner Family
DX: M25.562 Pain in left knee (principal)

== ENCOUNTER → 2024-12-19 10:25 | Outpatient (BNV) | payer OTHER, MEDICAID, SELFPAY | PROVIDERS: PCP Internal Medicine; Visit Provider Radiology Diagnostic Radiology | DX: M17.12 Unilateral primary osteoarthritis, left knee (principal) | CPT/HCPCS: 73564 ==

== ENCOUNTER 2025-01-21 11:56 | Outpatient (AMB) | payer OTHER, MEDICAID, SELFPAY ==
[2025-01-21 11:59] VITALS: BP 103/52; PULSE 76; O2SAT 99; BMI 24.1
--- NOTE | 2025-01-21 11:59 | A.OFFVIS_ITS ---
Vital Signs 01/21/25 11:59 Height 5 ft 5 in Weight 145 lb BMI 24.1 BP 103/52 L Blood Pressure Location Lt brachial Position Sitting Pulse 76 Pulse Oximetry (%) 99 Oxygen Delivery Method Room Air Intake Visit Reasons: Colonoscopy screening Intake Note: Patient new consult for Colonoscopy screening/Holley alvarez veto was 12/07/2020 and last EGD by Dr. Saenz. Patient cc: constipation on and off and heartburn come and go. Denies any other GI issues. 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 Accompanied by: Self / Same As Patient Allergies diphenhydramine (From BENADRYL) Allergy (Intermediate, Verified 01/21/25 11:58) LETHARGY ibuprofen (IBUPROFEN) Allergy (Intermediate, Verified 01/21/25 11:58) CHEST PAIN, Acute stomach and itchy iopromide (From Ultravist) Allergy (Mild, Verified 01/21/25 11:58) THROAT TIGHTNESS FOOD COLORING Allergy (Mild, Uncoded 02/16/24 10:02) SORE THROAT/ITCHINESS Lactulose Adverse Reaction (Intermediate, Uncoded 02/16/24 10:02) hives Medication List - Last Reconciled 01/21/25 by Shana Sweet CNP acetaminophen 1,000 mg (2 x 500 mg) PO Q6H PRN blood sugar diagnostic (FreeStyle Lite Strips) patient to check fasting glucose once daily blood-glucose meter (FreeStyle Lite Meter kit) patient to check fasting glucose once daily cholecalciferol (vitamin D3) 25 mcg PO DAILY lancets (FreeStyle Lancets) patient to check fasting glucose once daily [left hand wrist splint As directed] multivitamin 1 tab PO DAILY HPI HPI Colonoscopy screening: Details: Patient is a 59-year-old female with PMH of diabetes, headaches, vitamin-D deficiency. Referred by PCP for pre colonoscopy screening Last colo 2013 with pre-cancerous colon polyps. Bowel movements occur 2?3 times daily, typically morning, midday, and evening, soft and formed; reports transient constipation with hard, small stools for one week two weeks ago, resolved since then. Denies diarrhea and hematochezia. Abdominal pain is denied. Chronic belching recurs for several years, frequently triggered by rushing meals, certain foods (smoked/cured meats, brined items), or unknown seasonings/spices. Heartburn occurs episodically, associated with trigger foods, resolves spontaneously or with tea, without regurgitation or dysphagia. No nausea/vomiting except with dietary indiscretions. Belching occasionally improves with slower eating, and periods of remission are noted when dietary routine is consistent. No hx of prescribed acid suppression or recent usage of PPIs/H2 blockers. Comorbidities include lactose intolerance, prediabetes, and persistent mild liver enzyme elevation consistent with possible NAFLD, and elevated LDL cholesterol. Patient denies: fever/chills, n/v, appetite changes, dysphasia, unintentional wt loss, ab pain or melena/hematochezia. Social hx: -denies ETOH use -denies recreational drug use -non-smoker - family hx as below -denies personal hx of CA -denies significant cardiopulmonary history -tolerated anesthesia in the past without difficulty. [facility]LY [facility] Medical History (Updated 01/21/25 @ 13:07 by Shana Sweet CNP) Dyspepsia Left anterior knee pain Breast cyst Tubular adenoma of colon Constipation by delayed colonic transit GERD (gastroesophageal reflux disease) Surgical History (Updated 01/21/25 @ 12:05 by Harper Sales) Hx of left knee surgery History of ankle surgery History of cataract extraction H/O colonoscopy Family History Sister High cholesterol Mother No problems noted. Father No problems noted. Social History Household Members: Children Housing: House Alcohol intake: never Patient Tobacco Use Status: Never used Tobacco e-Cigarette/Vaping Use: Never Used service: No Current occupational status: employed Cognitive needs: No Hearing needs: No Vision needs: No Review of Systems Const Reports as per HPI ENT Reports as per HPI Card Reports as per HPI Resp Reports as per HPI GI Reports as per HPI Reports as per HPI Physical Exam Vital Signs: Last Vital Signs Pulse 76 01/21/25 11:59 BP 103/52 L 01/21/25 11:59 Pulse Ox 99 01/21/25 11:59 Oxygen Delivery Method Room Air 01/21/25 11:59 BMI result Body Mass Index 24.1 Const General: healthy appearing, no acute distress and well developed Nutritional Appearance: average body habitus Orientation/consciousness: patient oriented x3 HEENT Head: Yes normal to inspection, Yes normocephalic and Yes atraumatic Face and sinus: Yes normal facial exam Eyes General: appearance normal, both eyes and all related structures Neck Neck: Yes normal visual inspection Resp Effort & Inspection: normal respiratory effort, able to speak in complete sentences, no tracheal deviation and symmetric chest movement Cardio Jugular venous distension: no JVD GI Inspection: Yes normal to inspection and No distended Palpation (GI): Soft to palpation, not firm, nontender and No hepatosplenomegaly present Auscultation: normoactive bowel sounds Neuro General: patient oriented x3 Gait exam (Neuro): Normal gait present Psych Appearance: grossly normal Mental Status: mental status grossly normal Speech and movement: Normal speech and movement present Affect: normal affect Attitude: cooperative Thought process: Normal thought process present Thought content: Normal thought content present Insight: Good insight present (Psych) Judgement: Good judgement present (Psych) Assessment & Plan Assessment & Plan (1) Colon cancer screening: Comment: 03/27/14 colonoscopy (Dr. Saenz) complete with excellent prep- TA fragments Code(s): Z12.11 - Encounter for screening for malignant neoplasm of colon Category: Medical Plan: Due for polyp surveillance colonoscopy. No alarm features. Medications: -prescriptions for laxative tablets and PEG sent to pharmacy; instructions on clear liquid diet given. Patient educated on scheduling process, procedure preparation, including sam iding certain foods and ensuring clear liquid intake Advised on necessity for ride post-procedure due to sedation. (2) Dyspepsia: Code(s): R10.13 - Epigastric pain Category: Medical Plan: Chronic belching, triggered by food/rushed eating; possibility of H. pylori as contributing, also dietary factors. Additional Testing: Schedule H. pylori breath test (fasting required); no interfering meds Medication Management: None at present; if H. pylori positive, start quadruple therapy. Lifestyle Recommendations: Continue avoidance of known trigger foods, eat slowly, maintain food diary if needed Follow-Up: Will call with breath test results if positive; no contact means negative; otherwise F/U after colonoscopy (3) LFT elevation: Comment: 10/2020 Normal U/S Code(s): R79.89 - Other specified abnormal findings of blood chemistry Category: Medical Plan: Repeat pattern elevated hepatic enzymes, risk factors present: prediabetes, central obesity, hyperlipidemia Additional Testing: Monitor LFTs, consider further metabolic panel if symptoms arise; cholesterol at 130 non-HDL, goal <100 Medication Management: No new meds. Continue current vitamins. Lifestyle Recommendations: Maintain diet low in processed/fried/high-sugar/high-fat foods. Encourage regular physical activity. Consider reducing pork intake. Weight management [place] for hepatic health. Follow-Up: Reassess at next PCP visit; monitor periodic labs Plan Follow-up after colonoscopy or sooner as needed Time: I spent a total of 35 minutes on the date of encounter which includes: Preparing to see the patient (reviewed previous documentation, test results and medical history) Performing a medically appropriate exam and/or evaluation Ordering medications, tests, and procedures Documenting clinical information in the health record Orders: Orders H Pylori Breath Test Today Referrals GI Procedure Notification Z12.11 - Encounter for screening for malignant neoplasm of colon Medications: New bisacodyl Take per colonoscopy instructions 5 mg PO ONCE 4 tabs 0RF simethicone (Gas Relief (simethicone)) per colonoscopy prep instructions 125 mg PO ONCE 4 caps 0RF abdominal distention peg 3350-electrolytes [id number] -5.86 gram until fecal effluent is clear 240 mL PO ONCE 4,000 mL 0RF Coding Level of Care Code New Pt New Pt Level 3 (65931) Patient Type New Diagnoses Colon cancer screening Z12.11 Dyspepsia R10.13 LFT elevation R79.89
== END 2025-01-21 12:56 | disposition home or self-care (01) ==
LOC: HO.HGI 11:57
PROVIDERS: PCP Internal Medicine; Visit Provider Nurse Practitioner Family
DX: Z01.818 Encounter for other preprocedural examination (principal); Z12.11 Encounter for screening for malignant neoplasm of colon; R10.13 Epigastric pain; R74.01 Elevation of levels of liver transaminase levels
CPT/HCPCS: 99203

== ENCOUNTER 2025-01-24 15:05 | Outpatient (REF) | payer OTHER, MEDICAID, SELFPAY | END 2025-01-24 15:06 | disposition home or self-care (01) | LOC: HO.LNP 15:05 | PROVIDERS: PCP Internal Medicine; Visit Provider Nurse Practitioner Family | DX: Z11.0 Encounter for screening for intestinal infectious diseases (principal) | CPT/HCPCS: 83013 ==

== ENCOUNTER 2025-01-24 15:05 | Outpatient (AMB) | payer OTHER, MEDICAID, SELFPAY ==
--- NOTE | 2025-01-24 15:14 | AM.OFFVISNUR ---
Intake Visit Reasons: HP Breath Test. Nothing held, NPO within 1 hr. Intake Note: Patient presents for collection of?H Pylori?breath test. Patient has been fasting for 1 hour (nothing to eat, drink, no chewing gum or smoking) has not taken any antacid medication for at least 2 weeks and has no allergies to artificial sweeteners.?? Allergies diphenhydramine (From BENADRYL) Allergy (Intermediate, Verified 01/21/25 11:58) LETHARGY ibuprofen (IBUPROFEN) Allergy (Intermediate, Verified 01/21/25 11:58) CHEST PAIN, Acute stomach and itchy iopromide (From Ultravist) Allergy (Mild, Verified 01/21/25 11:58) THROAT TIGHTNESS FOOD COLORING Allergy (Mild, Uncoded 02/16/24 10:02) SORE THROAT/ITCHINESS Lactulose Adverse Reaction (Intermediate, Uncoded 02/16/24 10:02) hives Assessment & Plan Assessment & Plan (1) GERD (gastroesophageal reflux disease): Code(s): K21.9 - Gastro-esophageal reflux disease without esophagitis Category: Medical Qualifiers: Esophagitis presence: without esophagitis Qualified Code(s): K21.9 - Gastro-esophageal reflux disease without esophagitis Plan Patient presents for collection of?H Pylori?breath test. Patient has been fasting for 1 hour (nothing to eat, drink, no chewing gum or smoking) has not taken any antacid medication for at least 2 weeks and has no allergies to artificial sweeteners.???This test checks for an overgrowth of bacteria in your stomach. We all have bacteria but some may have more than others. It is treatable. if the test comes back negative there is nothing else to do. If the test result is positive we will treat you with 2 antibiotics and a medication to decrease the acid in your stomach (PPI) for 2 weeks. Two weeks after you have completed the treatment we will retest you to make sure the overgrowth has resolved. Patient Instructions: Process for specimen collection and reason for testing was explained to the patient. Specimen collection. Patient instructed to take a deep breath and then exhale into the blue bag, filling it up as much as possible. Patient instructed to drink a mixture of water and the artificial sweetener with a straw. A 15 minute wait period was observed. Patient instructed to take a deep breath and then exhale into the pink bag, filling it up as much as possible.?? Coding Level of Care Code Est Pt Level 1 (90140) Diagnoses Gastroesophageal reflux disease without esophagitis K21.9 Esophagitis presence: without esophagitis
--- OUTSIDE RECORDS SUMMARY | 2025-01-24 17:36 | XMS_ITS | Encounter Summary ---
Author Organization [employer] Address [address] [place] [address] Care Team Providers Care Transplant Surgeon Name Role Phone Unavailable Primary Care Provider [...]
--- OUTSIDE RECORDS SUMMARY | 2025-01-24 17:36 | XMS_ITS | Encounter Summary ---
Author Organization [facility] Address [address] [place] [address] Care Team Providers Care Senior Firmware Engineer Name Role Phone Unavailable Primary Care Provider Unavailabl e Encounter Details Date Type Department Care Team (Latest Contact Info) Description 08/27/2020 Abstract [facility] CONVERSIONS Dental, Provider, DDS Social History Tobacco [...]
--- OUTSIDE RECORDS SUMMARY | 2025-01-24 17:36 | XMS_ITS | Clinical Summary ---
Author Organization [employer] Address [address] [place] [address] [address] [place] [address] Care Team Providers Care Machine Spring Former Name Role Phone Unavailable Primary Care Provider [...]
== END 2025-01-24 15:14 | disposition home or self-care (01) ==
LOC: HO.HGI 15:05
PROVIDERS: PCP Internal Medicine; Visit Provider Nurse Practitioner Family
DX: K21.9 Gastro-esophageal reflux disease without esophagitis (principal)
CPT/HCPCS: 99499

== ENCOUNTER 2025-01-28 08:49 | Outpatient (REF) | payer OTHER, MEDICAID, SELFPAY ==
[2025-01-28 13:43] LABS: MANUAL DIFF FLAG NO
[2025-01-28 13:54] LABS: Hematocrit 38.3 % (37.0-47.0); Hemoglobin 12.7 g/dl (12.0-16.0); Imm Gran Abs Auto 0.01 X10*3/uL (0.00-0.03); Imm Gran Pct Auto 0.3 % (0.0-0.4); Lymphocytes Absolute Auto 1.5 X10*3/uL (1.2-4.9); Mean Corpuscular HGB Conc 33.2 g/dl (31.0-35.0); Mean Corpuscular Hemoglobin 30.4 pg (27.0-33.0); Mean Corpuscular Volume 91.6 fL (80.0-98.0); NRBC Abs Auto 0.000 X10*3/uL (0.0-0.012); NRBC Pct Auto 0.0 /100WBC (0.0-0.2); Platelet Count 311 X10*3/uL (160-400); Red Blood Count 4.18 X10*6/uL (4.20-5.50); White Blood Count 3.2 X10*3/uL (4.8-10.8)
[2025-01-28 18:08] LABS: Alanine Aminotransferase 27 U/L (0-31); Albumin Level 4.4 g/dL (3.5-5.0); Alkaline Phosphatase 66 U/L (39-117); Anion Gap 10 (12-20); Aspartate Amino Transferase 23 U/L (5-31); Blood Urea Nitrogen 9 mg/dL (9-16); Calcium 9.8 mg/dL (8.4-10.2); Carbon Dioxide 26 mmol/L (22-29); Chloride 111 mmol/L (96-108); Estimated Glomerular Filt Rate > 60; Potassium 4.5 mmol/L (3.3-5.1); Sodium 142 mmol/L (135-145); Total Protein 7.3 g/dL (6.5-8.0)
== END 2025-01-28 08:50 | disposition home or self-care (01) ==
LOC: HO.HMGCLDS 08:49
PROVIDERS: PCP Internal Medicine; Visit Provider Internal Medicine
DX: E11.69 Type 2 diabetes mellitus with other specified complication (principal); K21.9 Gastro-esophageal reflux disease without esophagitis; M17.12 Unilateral primary osteoarthritis, left knee; G43.819 Other migraine, intractable, without status migrainosus; E55.9 Vitamin D deficiency, unspecified
CPT/HCPCS: 36415; 80053; 83036; 83721; 85025; 96127

== ENCOUNTER 2025-01-28 08:49 | Outpatient (AMB) | payer OTHER, MEDICAID, SELFPAY ==
[2025-01-28 08:56] VITALS: BP 114/78; PULSE 79; RESP 16; O2SAT 99; BMI 24.6
--- NOTE | 2025-01-28 08:56 | A.OFFPC_ITS ---
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 [employer] Mason Required: No Accompanied by: Self / Same As Patient Allergies diphenhydramine (From BENADRYL) Allergy (Intermediate, Verified 01/28/25 09:01) LETHARGY ibuprofen (IBUPROFEN) Allergy (Intermediate, Verified 01/28/25 09:01) CHEST PAIN, Acute stomach and itchy iopromide (From Ultravist) Allergy (Mild, Verified 01/28/25 09:01) THROAT TIGHTNESS FOOD COLORING Allergy (Mild, Uncoded 02/16/24 10:02) SORE THROAT/ITCHINESS Lactulose Adverse Reaction (Intermediate, Uncoded 02/16/24 10:02) hives Medication List - Last Reconciled 01/28/25 by Isaiah Rosales MD acetaminophen 1,000 mg (2 x 500 mg) PO Q6H PRN blood sugar diagnostic (FreeStyle Lite Strips) patient to check fasting glucose once daily blood-glucose meter (FreeStyle Lite Meter kit) patient to check fasting glucose once daily cholecalciferol (vitamin D3) 25 mcg PO DAILY lancets (FreeStyle Lancets) patient to check fasting glucose once daily [left hand wrist splint As directed] multivitamin 1 tab PO DAILY Tobacco use date assessed: 01/28/25 Dental Screening Dental Screen Date: 01/28/25 Did you have a dental visit in the last 12 months?: Yes Did you have a dental problem in the last 6 months where you did not have access to dental care?: No Was dental information given to patient?: Patient has dentist HPI 4 months f/up HPI Details History of Present Illness The patient is a 59-year-old female presenting with follow-up care for diabetes management and evaluation of left knee pain. Diabetes Mellitus: - The patient is a tight control diabeti c. - Last hemoglobin A1c was 6.3%, measured in September. - The patient reports taking multivitami ns, Tylenol, and vitamin D. Left Knee Pain: - The patient reports pain in the left k nee, described as painful, swollen, and puffy. - The problem was evaluated in the walk- in clinic where an X-ray confirmed the presence of osteoarthritis and a possible old injury. - The patient has been using a pain patc h for relief, which she reports as improving. - Pain is exacerbated by walking and wea ring certain sneakers but has improved somewhat over time. Acid Reflux: - The patient reports having acid reflux , for which she saw a medical insurance claims specialist last Monday. - She completed a breath test recommende d by the medical insurance claims specialist. Headaches: - The patient reports that her headaches have decreased and she has not experienced them for a while. Varicose Veins: - The patient also has significant varic ose veins but they are not bothering her Medical History: - Diabetes Mellitus - Osteoarthritis of the left knee - Gastroesophageal Reflux Disease (GERD) - History of headaches - Varicose veins Diagnostic Results: - Labs: Hemoglobin A1c was 6.3% in September; Glomerular Filtration Rate (GFR) was 56 in September. - Tests: Left knee X-ray showed osteoart hritis and possible old injury. A breath test for acid reflux was conducted. Problem List - Diabetes Mellitus - Osteoarthritis of the left knee - Gastroesophageal Reflux Disease (GERD) - Headaches - Varicose Veins - reduced GFR Plan - Conduct laboratory tests to evaluate k idney function and the patient's current glucose levels. - Referral to labor specialist for evaluation and management of left knee osteoarthritis, including possible initiation of physical therapy. - Discuss potential switch from Tylenol to Aleve for better management of osteoarthritis pain, considering tolerability and kidney function. Await for lab report - Continue current management for acid r eflux and await results of the breath test from medical insurance claims specialist. - Encourage adherence to current managem ent strategies for diabetes and plan follow-up in four months to reassess glycemic control. Follow-up 4 months Review of Systems - General: No fever no chills - Neurological: No headaches no dizziness - Ear nose throat: No sore throat no hearing difficulty no ear pain - Cardiovascular: No syncope, no chest pain, no palpitations - Gastrointestinal: No nausea vomiting or diarrhea - Endocrine: No polyuria polydipsia no heat intolerance - Genitourinary: No dysuria , no blood in urine Physical Exam General: No acute distress HEENT: No acute findings Neck: Supple Respiratory system: Able to talk in full sentences, no audible wheeze Cardiovascular: S1-S2 regular in rate and rhythm Gastrointestinal: No pain Extremities: Left knee painful, medially with palpation, no swelling range of motion intact varicose veins present VP PRODUCT: Alert awake oriented x3 motor intact Skin: Normal turgor PFSH Medical History Dyspepsia Left anterior knee pain Breast cyst Tubular adenoma of colon Constipation by delayed colonic transit GERD (gastroesophageal reflux disease) Surgical History Hx of left knee surgery History of ankle surgery History of cataract extraction H/O colonoscopy Family History Sister High cholesterol Mother No problems noted. Father No problems noted. Social History Household Members: Children Housing: House Alcohol intake: never Patient Tobacco Use Status: Never used Tobacco e-Cigarette/Vaping Use: Never Used service: No Current occupational status: employed Cognitive needs: No Hearing needs: No Vision needs: No Questionnaire PHQ-9 Over the last 2 weeks, how often have you been bothered by any of the following problems? 1. Little interest or pleasure in doing things: not at all 2. Feeling down, depressed, or hopeless: not at all 3. Trouble falling or staying asleep, or sleeping too much: not at all 4. Feeling tired or having little energy: not at all 5. Poor appetite or overeating: not at all 6. Feeling bad about yourself - or that you are a failure or have let yourself or your family down: not at all 7. Trouble concentrating on things, such as reading the newspaper or watching television: not at all 8. Moving or speaking so slowly that other people could have noticed. Or the opposite - being so fidgety or restless that you have been moving around a lot more than usual: not at all 9. Thoughts that you would be better off or of hurting yourself in some way: not at all Total score: 0 Depression Screening Interpretation: Negative Depression Screening Done: Yes 19487 - PHQ-9 Billing: Yes Source: Developed by Drs. Freddy Fisher, Paola Tariq, Colton Ordoñez and colleagues, with an educational esthela from [employer]. Thrive Questionnaire Date Thrive assessed: 05/07/24 I am a: Patient What is your living situation today?: I have a steady place to live Within the past 12 months, did the food you bought not last and you didn't have the money to get more?: Sometimes True Within the past 12 months, did you worry whether your food would run out before you got money to buy more?: Sometimes True Do you have trouble paying for medicines?: No Do you have trouble getting transportation to medical appointments?: Yes Do you have trouble paying your heating and electricity bill?: Yes Do you have trouble taking care of your child, family member or friend?: No Do you have trouble with day-to-day activities such as bathing, preparing meals, shopping, managing finances, etc.?: No Are you currently unemployed and looking for a job?: No Are you interested in more education?: Yes Please select the resources that you would like help with: Utilities Currently or been in a relationship where the following occur: I choose not to answer THRIVE Score: 4 BIANCA-7 AMB Questionnaire BIANCA-7 Date BIANCA - 7 assessed: 01/28/25 Feeling nervous, anxious, or on edge: 0 = Not at all Not being able to stop or control worryin = Not at all Worrying too much about different things: 0 = Not at all Trouble relaxin = Not at all Being so restless that it is hard to sit still: 0 = Not at all Becoming easily annoyed or irritable: 0 = Not at all Feeling afraid as if something awful might happen: 0 = Not at all Total BIANCA-7 score (0-4 normal; 5-9 mild; 10-14 moderate; 15-21 severe): 0 Source: Developed by Drs. Freddy Fisher, Paola Tariq, Colton Ordoñez and colleagues, with an educational esthela from [employer]. BIANCA-7 Assessment Billing BIANCA-7 Assessment Tool: BIANCA-7 Assessment 77857 Physical exam (Primary Care) Vital Signs: Last Vital Signs Pulse 79 01/28/25 08:56 Resp 16 01/28/25 08:56 BP 114/78 01/28/25 08:56 Pulse Ox 99 01/28/25 08:56 Oxygen Delivery Method Room Air 01/28/25 08:56 BMI result Body Mass Index 24.6 Tobacco/Smoking Status: Tobacco use Status Tobacco use date assessed 01/28/25 01/28/25 09:05 Patient Tobacco Use Status Never used Tobacco 01/28/25 09:05 e-Cigarette/Vaping Use Never Used 01/28/25 09:05 PHQ-9: PHQ-9 Score PHQ-9: Total score 0 01/28/25 09:23 Depression Screening Interpretation: Negative Thrive Assessment: Date of Thrive Assessment Date Thrive assessed 05/07/24 01/28/25 09:05 Currently or been in a relationship where the following occur: I choose not to answer Coding Level of Care Code Est Pt Level 4 (44805) Complex EM visit Add On G2211 Diagnoses Type 2 diabetes mellitus with other specified complication, without long-term current use of insulin E11.69 Diabetes mellitus complication status: with other specified complication Diabetes mellitus intermediate insulin use: without salvage determiner use Diabetes mellitus type: type 2 Gastroesophageal reflux disease without esophagitis K21.9 Esophagitis presence: without esophagitis Primary osteoarthritis of left knee M17.12 Osteoarthritis type: primary Other migraine without status migrainosus, intractable G43.819 Intractability: intractable Migraine type: other Status migrainosus presence: without status migrainosus Vitamin D deficiency E55.9 Additional Codes BIANCA-7 Assessment Billing - BIANCA-7 Assessment Tool: BIANCA-7 Assessment 34366 ([id number]) PHQ-9 - 27980 - PHQ-9 Billing: Yes ([id number]) Assessment & Plan Assessment & Plan (1) Diabetes mellitus: Code(s): E11.9 - Type 2 diabetes mellitus without complications Category: Medical Qualifiers: Diabetes mellitus complication status: with other specified complication Diabetes mellitus intermediate insulin use: without salvage determiner use Diabetes mellitus type: type 2 Qualified Code(s): E11.69 - Type 2 diabetes mellitus with other specified complication (2) GERD (gastroesophageal reflux disease): Code(s): K21.9 - Gastro-esophageal reflux disease without esophagitis Category: Medical Qualifiers: Esophagitis presence: without esophagitis Qualified Code(s): K21.9 - Gastro-esophageal reflux disease without esophagitis (3) Osteoarthritis of left knee: Code(s): M17.12 - Unilateral primary osteoarthritis, left knee Category: Medical Qualifiers: Osteoarthritis type: primary Qualified Code(s): M17.12 - Unilateral primary osteoarthritis, left knee (4) Migraine headache: Code(s): G43.909 - Migraine, unspecified, not intractable, without status migrainosus Category: Medical Qualifiers: Intractability: intractable Migraine type: other Status migrainosus presence: without status migrainosus Qualified Code(s): G43.819 - Other migraine, intractable, without status migrainosus (5) Vitamin D deficiency: Code(s): E55.9 - Vitamin D deficiency, unspecified Category: Medical Plan Diabetes Mellitus: - The patient is a tight control diabetic. - Last hemoglobin A1c was 6.3%, measured in September. - The patient reports taking multivitamins, Tylenol, and vitamin D. Left Knee Pain: - The patient reports pain in the left knee, described as painful, swollen, and puffy. - The problem was evaluated in the walk-in clinic where an X-ray confirmed the presence of osteoarthritis and a possible old injury. - The patient has been using a pain patch for relief, which she reports as improving. - Pain is exacerbated by walking and wearing certain sneakers but has improved somewhat over time. Acid Reflux: - The patient reports having acid reflux, for which she saw a medical insurance claims specialist last Monday. - She completed a breath test recommended by the medical insurance claims specialist. Headaches: - The patient reports that her headaches have decreased and she has not experienced them for a while. Varicose Veins: - The patient also has significant varicose veins but they are not bothering her Medical History: - Diabetes Mellitus - Osteoarthritis of the left knee - Gastroesophageal Reflux Disease (GERD) - History of headaches - Varicose veins Diagnostic Results: - Labs: Hemoglobin A1c was 6.3% in September; Glomerular Filtration Rate (GFR) was 56 in September. - Tests: Left knee X-ray showed osteoarthritis and possible old injury. A breath test for acid reflux was conducted. Problem List - Diabetes Mellitus - Osteoarthritis of the left knee - Gastroesophageal Reflux Disease (GERD) - Headaches - Varicose Veins - reduced GFR Plan - Conduct laboratory tests to evaluate kidney function and the patient's current glucose levels. - Referral to labor specialist for evaluation and management of left knee osteoarthritis, including possible initiation of physical therapy. - Discuss potential switch from Tylenol to Aleve for better management of osteoarthritis pain, considering tolerability and kidney function. Await for lab report - Continue current management for acid reflux and await results of the breath test from medical insurance claims specialist. - Encourage adherence to current management strategies for diabetes and plan follow-up in four months to reassess glycemic control. Follow-up 4 months Orders: Orders Hemoglobin A1c Today E11.69 - Type 2 diabetes mellitus with other specified complication, E55.9 - Vitamin D deficiency, unspecified, G43.819 - Other migraine, intractable, without status migrainosus, K21.9 - Gastro-esophageal reflux disease without esophagitis, M17.12 - Unilateral primary osteoarthritis, left knee Comprehensive Met. Panel Today E11.69 - Type 2 diabetes mellitus with other specified complication, E55.9 - Vitamin D deficiency, unspecified, G43.819 - Other migraine, intractable, without status migrainosus, K21.9 - Gastro- esophageal reflux disease without esophagitis, M17.12 - Unilateral primary osteoarthritis, left knee Complete Blood Count Auto Diff Today E11.69 - Type 2 diabetes mellitus with other specified complication, E55.9 - Vitamin D deficiency, unspecified, G43.819 - Other migraine, intractable, without status migrainosus, K21.9 - Gastro- esophageal reflux disease without esophagitis, M17.12 - Unilateral primary osteoarthritis, left knee LDL Cholesterol Direct Today E11.69 - Type 2 diabetes mellitus with other specified complication, E55.9 - Vitamin D deficiency, unspecified, G43.819 - Other migraine, intractable, without status migrainosus, K21.9 - Gastro- esophageal reflux disease without esophagitis, M17.12 - Unilateral primary osteoarthritis, left knee Microalbumin, Random (w Creat) Today E11.69 - Type 2 diabetes mellitus with other specified complication, E55.9 - Vitamin D deficiency, unspecified, G43.819 - Other migraine, intractable, without status migrainosus, K21.9 - Gastro- esophageal reflux disease without esophagitis, M17.12 - Unilateral primary osteoarthritis, left knee Referrals Orthopedics Referral M17.12 - Unilateral primary osteoarthritis, left knee
--- OUTSIDE RECORDS SUMMARY | 2025-01-28 09:13 | XMS_ITS | Clinical Summary ---
Author Organization [employer] Address [address] [place] [address] [address] [place] [address] Care Team Providers Care Manager Social Responsibility Name Role Phone Unavailable Primary Care Provider [...]
--- OUTSIDE RECORDS SUMMARY | 2025-01-28 09:13 | XMS_ITS | Encounter Summary ---
Author Organization [employer] Address [address] [place] [address] Care Team Providers Care Box Toe Cutter Name Role Phone Unavailable Primary Care Provider Unavailabl e Encounter Details Date Type Department Care Team (Latest Contact Info) Description 01/22/2019 Abstract [facility] CONVERSIONS Dental, Provider, DDS Social History [...]
--- OUTSIDE RECORDS SUMMARY | 2025-01-28 09:13 | XMS_ITS | Encounter Summary ---
Author Organization [facility] Address [address] [place] [address] Care Team Providers Care Communications Programmer Name Role Phone Unavailable Primary Care Provider Unavailabl e Encounter Details Date Type Department Care Team (Latest Contact Info) Description 08/27/2020 Abstract [facility] CONVERSIONS Dental, Provider, DDS Social History Tobacco [...]
== END 2025-01-28 09:21 | disposition home or self-care (01) ==
LOC: HO.HMCC 08:49
PROVIDERS: PCP Internal Medicine; Visit Provider Internal Medicine
DX: E11.69 Type 2 diabetes mellitus with other specified complication (principal); K21.9 Gastro-esophageal reflux disease without esophagitis; M17.12 Unilateral primary osteoarthritis, left knee; G43.819 Other migraine, intractable, without status migrainosus; E55.9 Vitamin D deficiency, unspecified

== ENCOUNTER 2025-02-01 12:03 | Outpatient (REF) | payer OTHER, MEDICAID, SELFPAY ==
--- OUTSIDE RECORDS SUMMARY | 2025-02-01 12:06 | XMS_ITS | Encounter Summary ---
Author Organization [employer] Address [address] [place] [address] Care Team Providers Care Hiv/Aids Care Nurse Name Role Phone Unavailable Primary Care Provider Unavailabl e Encounter Details Date Type Department Care Team (Latest Contact Info) Description 08/27/2020 Abstract [facility] CONVERSIONS Dental, Provider, DDS Social [...]
--- OUTSIDE RECORDS SUMMARY | 2025-02-01 12:06 | XMS_ITS | Clinical Summary ---
Author Organization [employer] Address [address] [place] [address] [address] [place] [address] Care Team Providers Care Computer Networking Instructor Name Role Phone Unavailable Primary Care Provider [...]
--- OUTSIDE RECORDS SUMMARY | 2025-02-01 12:06 | XMS_ITS | Encounter Summary ---
Author Organization [employer] Address [address] [place] [address] Care Team Providers Care Band Shover Name Role Phone Unavailable Primary Care Provider Unavailabl e Encounter Details Date Type Department Care Team (Latest Contact Info) Description 01/22/2019 Abstract [facility] CONVERSIONS Dental, Provider, DDS Social History [...]
[2025-02-01 15:44] LABS: Microalbum/Creatinine Ratio Ur 3.4 ug/mg cr (<30)
== END 2025-02-01 12:04 | disposition home or self-care (01) ==
LOC: HO.HMGCLDS 12:03
PROVIDERS: PCP Internal Medicine; Visit Provider Internal Medicine
DX: E11.69 Type 2 diabetes mellitus with other specified complication (principal); E55.9 Vitamin D deficiency, unspecified; K21.9 Gastro-esophageal reflux disease without esophagitis; M17.12 Unilateral primary osteoarthritis, left knee; G43.819 Other migraine, intractable, without status migrainosus
CPT/HCPCS: 82043; 82570

== ENCOUNTER 2025-03-12 14:41 | Outpatient (AMB) | payer OTHER, MEDICAID, SELFPAY ==
--- NOTE | 2025-03-12 15:00 | MHC.OFFVIS ---
Vital Signs 03/12/25 15:04 Height 5 ft 5 in Weight 145 lb BMI 24.1 Intake Visit Reasons: Left knee pain Intake Note: Ama is a 59 year old female who presents with complaints of left knee pain. She describes her pain as sharp in nature. Most of the pain is along the medial and anterior aspects of her knee. The patient states that she did have a cortisone injection given into her right knee in the past which gave her 2 days worth of relief. She has tried Tylenol which gives her mild relief. The patient states that she did undergo a vascular procedure on her left leg in the past. Allergies diphenhydramine (From BENADRYL) Allergy (Intermediate, Verified 03/12/25 15:05) LETHARGY ibuprofen (IBUPROFEN) Allergy (Intermediate, Verified 03/12/25 15:05) CHEST PAIN, Acute stomach and itchy iopromide (From Ultravist) Allergy (Mild, Verified 03/12/25 15:05) THROAT TIGHTNESS FOOD COLORING Allergy (Mild, Uncoded 03/12/25 15:05) SORE THROAT/ITCHINESS Lactulose Adverse Reaction (Intermediate, Uncoded 03/12/25 15:05) hives Medication List - Last Reconciled 03/12/25 by Rojas Garland MD acetaminophen 1,000 mg (2 x 500 mg) PO Q6H PRN blood sugar diagnostic (FreeStyle Lite Strips) patient to check fasting glucose once daily blood-glucose meter (FreeStyle Lite Meter kit) patient to check fasting glucose once daily cholecalciferol (vitamin D3) 25 mcg PO DAILY lancets (FreeStyle Lancets) patient to check fasting glucose once daily [left hand wrist splint As directed] multivitamin 1 tab PO DAILY PFSH Medical History Dyspepsia Left anterior knee pain Breast cyst Tubular adenoma of colon Constipation by delayed colonic transit GERD (gastroesophageal reflux disease) Surgical History Hx of left knee surgery History of ankle surgery History of cataract extraction H/O colonoscopy Family History Sister High cholesterol Mother No problems noted. Father No problems noted. Social History Household Members: Children Housing: House Alcohol intake: never Patient Tobacco Use Status: Never used Tobacco e-Cigarette/Vaping Use: Never Used service: No Current occupational status: employed Cognitive needs: No Hearing needs: No Vision needs: No Physical Exam Vital Signs: BMI result Body Mass Index 24.1 Extrem Other: Left knee examination shows a minimal effusion, minimal crepitus with range of motion, tenderness along her medial and lateral joint lines, positive Ania's test, no instability Results Reviewed Results Reviewed: X-rays of the patient's left knee show mild diffuse joint space narrowing, no acute bony abnormalities Assessment & Plan Assessment & Plan (1) Left knee pain: Code(s): M25.562 - Pain in left knee Category: Medical Plan Ms. May presents with left knee pain possibly due to a meniscus tear. Thus, I will send the patient for an MRI of her left knee for further evaluation. I will see her back once the MRI is completed to discuss the findings and treatment options. I spent 20 minutes in reviewing the patient's records and imaging studies, seeing the patient and documenting in the medical record. Orders: Orders MR knee LT wo con Today M25.562 - Pain in left knee Coding Level of Care Code New Pt Level 3 (93107) Complex visit Add On G2211 Diagnoses Left knee pain M25.562
[2025-03-12 15:04] VITALS: BMI 24.1
--- OUTSIDE RECORDS SUMMARY | 2025-03-12 17:36 | XMS_ITS | Encounter Summary ---
Author Organization [employer] Address [address] [place] [address] Care Team Providers Care Lead Game Designer Name Role Phone Unavailable Primary Care Provider Unavailabl e Encounter Details Date Type Department Care Team (Latest Contact Info) Description 01/22/2019 Abstract [facility] CONVERSIONS Dental, Provider, DDS Social [...]
--- OUTSIDE RECORDS SUMMARY | 2025-03-12 17:36 | XMS_ITS | Clinical Summary ---
Author Organization [employer] Address [address] [place] [address] [address] [place] [address] Care Team Providers Care Tube Mounter Name Role Phone Unavailable Primary Care Provider [...]
--- OUTSIDE RECORDS SUMMARY | 2025-03-12 17:36 | XMS_ITS | Encounter Summary ---
Author Organization [employer] [facility] Address [address] [place] [address] Care Team Providers Care Survey Interviewer Name Role Phone Unavailable Primary Care Provider Unavailabl e Encounter Details Date Type Department Care Team (Latest Contact Info) Description 08/27/2020 Abstract [facility] CONVERSIONS Dental, Provider, DDS Social History [...]
== END 2025-03-12 15:26 | disposition home or self-care (01) ==
LOC: HO.HOS 14:42
PROVIDERS: PCP Internal Medicine; Visit Provider Orthopaedic Surgery
DX: M25.562 Pain in left knee (principal)
CPT/HCPCS: 99203; G2211

== ENCOUNTER 2025-04-08 10:49 | Day surgery (SDC) | payer OTHER, MEDICAID, SELFPAY ==
--- OUTSIDE RECORDS SUMMARY | 2025-02-27 19:19 | XMS_ITS | Encounter Summary ---
Author Organization [employer] [facility] Address [address] [place] [address] Care Team Providers Care Grinder Set Up Operator Jig Name Role Phone Unavailable Primary Care Provider Unavailabl e Encounter Details Date Type Department Care Team (Latest Contact Info) Description 08/27/2020 Abstract [facility] CONVERSIONS Dental, Provider, DDS Social History [...]
--- OUTSIDE RECORDS SUMMARY | 2025-02-27 19:19 | XMS_ITS | Clinical Summary ---
Author Organization [employer] Address [address] [place] [address] 7 [place] [address] Care Team Providers Care Director Of Aviation Name Role Phone Unavailable Primary Care Provider [...] of 2) 2013 COVID-19 Vaccine ( - 2024-2 6 season) 2024 Influenza Vaccine (#1) 2024 RSV [...]
--- OUTSIDE RECORDS SUMMARY | 2025-02-27 19:19 | XMS_ITS | Encounter Summary ---
Author Organization [employer] Address [address] [place] [address] Care Team Providers Care Program Or Project Administrator Name Role Phone Unavailable Primary Care Provider Unavailabl e Encounter Details Date Type Department Care Team (Latest Contact Info) Description 01/22/2019 Abstract [facility] CONVERSIONS Dental, Provider, DDS Social History Tobacco [...]
--- NOTE | 2025-04-02 10:26 | HO.ANESPROP2 ---
Documented by User: Alesha Schmitz NP 04/02/25 10:27 HPI - Anesthesia Eval Consult details Narrative: 59 yr old female for colonoscopy [facility] Active Problems Active Problems: All Active Problems (Updated 03/12/25 @ 15:31 by Rojas Garland MD) Left knee pain (Acute) Osteoarthritis of left knee (Acute) Dyspepsia (Acute) Left anterior knee pain (Acute) Colon cancer screening (Acute) Adult general medical exam (Acute) Nosebleed (Acute) Trapezius muscle strain (Acute) Syncope (Acute) Work related injury (Acute) Head trauma (Acute) Scalp injury (Acute) Headache (Acute) Forgetfulness (Acute) Carpal tunnel syndrome, left (Acute) Varicose veins of left lower extremity with inflammation (Acute) Serum calcium elevated (Acute) Pain in left leg (Acute) Varicose veins of left lower extremity (Acute) Feeling weak (Acute) Hand paresthesia (Acute) LFT elevation (Acute) Diabetes mellitus (Acute) Elevated fasting blood sugar (Acute) Migraine headache (Acute) Vitamin D deficiency (Acute) Lipid disorder (Acute) Encounter for general adult medical examination with abnormal findings (Acute) Lower back pain (Acute) Vertigo (Acute) Tubular adenoma of colon (Acute) Constipation by delayed colonic transit (Acute) GERD (gastroesophageal reflux disease) (Acute) Past Medical History Medical History Dyspepsia Left anterior knee pain Breast cyst Tubular adenoma of colon Constipation by delayed colonic transit GERD (gastroesophageal reflux disease) Family History Family History Sister High cholesterol Mother No problems noted. Father No problems noted. Surgical History Surgical History Hx of left knee surgery History of ankle surgery History of cataract extraction H/O colonoscopy Social History Social History Household Members: Children Housing: House Alcohol intake: never Patient Tobacco Use Status: Never used Tobacco e-Cigarette/Vaping Use: Never Used Use of substances other than those prescribed or required for medical reasons: No Advance Directives: No Advance Directives Information Provided: Yes service: No Current occupational status: employed Cognitive needs: No Hearing needs: No Vision needs: No Meds Allergies Allergy/AdvReac Type Severity Reaction Status Date / Time diphenhydramine (From Allergy Intermediate LETHARGY Verified 03/12/25 15:05 BENADRYL) ibuprofen (IBUPROFEN) Allergy Intermediate CHEST Verified 03/12/25 15:05 PAIN, Acute stomach and itchy iopromide (From Ultravist) Allergy Mild THROAT Verified 03/12/25 15:05 TIGHTNESS FOOD COLORING Allergy Mild SORE Uncoded 03/12/25 15:05 THROAT/ITCHINESS Lactulose AdvReac Intermediate hives Uncoded 03/12/25 15:05 Home Medications ?Medication ?Instructions ?Recorded ?Confirmed ?Last Taken ?Type cholecalciferol (vitamin D3) 25 25 mcg PO DAILY 04/23/20 03/12/25 Unknown History mcg (1,000 unit) capsule multivitamin 1 tab PO DAILY 01/21/25 03/12/25 Unknown History Assessment and Plan Assessment Anesthesia Assessment: Chart Reviewed Documented by User: Mikaela Kolb MD 04/08/25 12:22 [facility] Past Medical History Medical History Dyspepsia Left anterior knee pain Breast cyst Tubular adenoma of colon Constipation by delayed colonic transit GERD (gastroesophageal reflux disease) Family History Family History Sister High cholesterol Mother No problems noted. Father No problems noted. Family history of problems with anesthesia: No Surgical History Surgical History Hx of left knee surgery History of ankle surgery History of cataract extraction H/O colonoscopy History of Problems with Anesthesia: No Social History Social History Household Members: Children Housing: House Alcohol intake: never Patient Tobacco Use Status: Never used Tobacco e-Cigarette/Vaping Use: Never Used Use of substances other than those prescribed or required for medical reasons: No Advance Directives: No Advance Directives Information Provided: Yes service: No Current occupational status: employed Cognitive needs: No Hearing needs: No Vision needs: No Meds Allergies Allergy/AdvReac Type Severity Reaction Status Date / Time diphenhydramine (From Allergy Intermediate LETHARGY Verified 03/12/25 15:05 BENADRYL) ibuprofen (IBUPROFEN) Allergy Intermediate CHEST Verified 03/12/25 15:05 PAIN, Acute stomach and itchy iopromide (From Ultravist) Allergy Mild THROAT Verified 03/12/25 15:05 TIGHTNESS FOOD COLORING Allergy Mild SORE Uncoded 03/12/25 15:05 THROAT/ITCHINESS Lactulose AdvReac Intermediate hives Uncoded 03/12/25 15:05 Home Medications ?Medication ?Instructions ?Recorded ?Confirmed ?Last Taken ?Type cholecalciferol (vitamin D3) 25 25 mcg PO DAILY 04/23/20 03/12/25 Unknown History mcg (1,000 unit) capsule multivitamin 1 tab PO DAILY 01/21/25 03/12/25 Unknown History Exam Airway Mallampati Class: II TM Dist: >3cm Neck ROM: Full Heart: rrr Lungs: cta Assessment and Plan Assessment Anesthesia Assessment: Anesthesia Plan Discussed Final Anesthetic Review Family History of Problems with Anesthesia: No History of Problems with Anesthesia: No NPO: Yes ASA Class: II Final Preanesthetic Review: No Changes in Pt Med Stat, Meds/Allgs Chart Reviewed, Consent Obtained/Reviewed and Anes Risks/Benef Reviewed Patient Risk: Low Procedure Risk: Low Anesthetic Plan Anesthetic Plan: MAC: and Agree w/ Assess. and Plan Disposition: Standard PACU
[2025-04-08 11:10] VITALS: BMI 23.3
[2025-04-08 11:25] VITALS: BP 128/74; PULSE 76; RESP 16; TEMP 36.6; O2SAT 99
[2025-04-08] MEDS: Lactated Ringers 1,000 ML 100 ML IVCONT (11:26)
--- NOTE | 2025-04-08 11:28 | MHC.SHP ---
Pre-Procedural Eval Section A - 24 Hr Update-Section A only Date of Service: 04/08/25 Section B - Complete if H&P > 30 days Chief Complaint: screening Details of Present Illness: Medical History (Updated 01/21/25 @ 13:07 by Shana Sweet CNP) Dyspepsia Left anterior knee pain Breast cyst Tubular adenoma of colon Constipation by delayed colonic transit GERD (gastroesophageal reflux disease) Surgical History (Updated 01/21/25 @ 12:05 by Harper Sales) Hx of left knee surgery History of ankle surgery History of cataract extraction H/O colonoscopy Present Medications: see Short Stay Collaborative assessment Allergies: Allergies Allergy/AdvReac Type Severity Reaction Status Date / Time diphenhydramine (From Allergy Intermediate LETHARGY Verified 03/12/25 15:05 BENADRYL) ibuprofen (IBUPROFEN) Allergy Intermediate CHEST Verified 03/12/25 15:05 PAIN, Acute stomach and itchy iopromide (From Ultravist) Allergy Mild THROAT Verified 03/12/25 15:05 TIGHTNESS FOOD COLORING Allergy Mild SORE Uncoded 03/12/25 15:05 THROAT/ITCHINESS Lactulose AdvReac Intermediate hives Uncoded 03/12/25 15:05 Review of Systems Review of Systems Comment: Ten point ROS negative Exam Exam Comment: Gen appear: No acute distress HEENT: no icterus Chest: No overt resp distress Abd: soft, nontender, nondistended Psych: Stable affect, answering questions appropriately Neuro: A/Ox3 noted to move all extremities spontaneously Ext: no peripheral edema Plan Diagnosis/Plan: Unchanged I have reviewed the history and physical and performed a pertinent physical examination on my patient. No changes have occurred unless specified. Time Spent With Patient Time: Total time managing care of this patient today ____ minutes.
[2025-04-08 12:51] LABS: Glucose, Whole Blood 86 mg/dL (60-115)
--- NOTE | 2025-04-08 13:11 | P.OPN-COLO_ITS ---
Colonoscopy Operative Note Operative Note Date of Service: 04/08/25 Narrative: Procedure: Colonoscopy Indication: Screening Endoscopist: Ana Goodwin MD Anesthesia Provider: Missael García CRNA Anesthesia type: MAC Instrument: Olympus [id number]-[id number] Consent: Indication, risks vs benefits, and alternatives were discussed with the patient who gave written informed consent to proceed. Monitoring: EKG, pulse, pulse oximetry and blood pressure were monitored throughout the procedure. Please see anesthesia flowsheet. Procedure: The patient was brought to the procedure room and placed in the left lateral decubitus position. IV medications were administered by the anesthesia provider in attendance. A digital rectal exam was performed which was normal. A distal attachment cap was affixed to the tip of the colonoscope which was then inserted through the anus and advanced through the colon to the cecum at 75 cm,and terminal ileum. Appendiceal orifice and ileocecal valve were identified. Mucosa was carefully examined under high definition white light as the instrume nt was slowly withdrawn in a retrograde panoramic fashion. Retroflexion was performed in rectum. The procedure was not difficult. There were no immediate obvious complications. The quality of the prep was BBPS: 2+3+3 = adequate Withdrawal time 9 minutes. Limitations: No limitations. Findings: Mucosa: Normal to cecum and terminal ileum. Protruding lesions: * 1 sessile polyp of size 5 mm in rectum. Cold snare polypectomy was performed. The polyp was completely removed and retrieved. * Medium internal hemorrhoids without stigmata of recent bleeding. Excavated lesions: * Moderate diverticulosis of sigmoid colon. Impression: 1. Normal colon mucosa 2. Total of 1 polyp removed 3. External and internal hemorrhoids Recommendations: - Follow path results. - repeat colonoscopy in 7-10 years depending on the results
[2025-04-08 13:15] VITALS: BP 105/66; PULSE 80; RESP 16; TEMP 36.7; O2SAT 100
[2025-04-08 13:30] VITALS: BP 119/71; PULSE 72; RESP 16; TEMP 36.7; O2SAT 100
== END 2025-04-08 13:55 | disposition home or self-care (01) ==
PROVIDERS: PCP Internal Medicine; Visit Provider Internal Medicine
PROC: 0DJD8ZZ Inspection of Lower Intestinal Tract, Via Natural or Artificial Opening Endoscopic (ICD-10-PCS; CPT 45378; principal; 2025-04-08 13:10)
DX: Z12.11 Encounter for screening for malignant neoplasm of colon (principal); Z86.0101 Personal history of adenomatous and serrated colon polyps; E11.9 Type 2 diabetes mellitus without complications; R10.13 Epigastric pain; K64.8 Other hemorrhoids; K57.30 Diverticulosis of large intestine without perforation or abscess without bleeding; K64.4 Residual hemorrhoidal skin tags; K59.01 Slow transit constipation; K63.5 Polyp of colon
CPT/HCPCS: 45385; 82947; 88305; J2003; J2704

== ENCOUNTER → 2025-04-08 10:49 | Outpatient (BNV) | payer OTHER, MEDICAID, SELFPAY | PROVIDERS: PCP Internal Medicine; Visit Provider Internal Medicine | DX: Z12.11 Encounter for screening for malignant neoplasm of colon (principal); K63.5 Polyp of colon; K57.30 Diverticulosis of large intestine without perforation or abscess without bleeding; K64.8 Other hemorrhoids | CPT/HCPCS: 45385 ==